=== PATIENT | female | born 1945 | race Caucasian/White ===

== ENCOUNTER 2018-01-28 10:04 | Emergency (ER) | payer OTHER, SELFPAY ==
[2018-01-28 10:17] VITALS: BP 144/75; PULSE 89; RESP 16; TEMP 36.5; O2SAT 96
--- NOTE | 2018-01-28 10:22 | ED.GENADUL_ITS ---
Discharge Plan Discharge Details Chief Complaint: Orthopedic Primary Care Provider: Rosaura Rueda ED Provider: Bhavya Deutsch Home Meds and New Rx's Prescriptions: No Action travoprost [Travatan Z] 2.5 ML drops 1 drp OU QHS RF: 0 mirtazapine [Remeron] 30 MG tablet 30 mg PO HS RF: 0 multivitamin with iron 1 EACH tablet 1 ea PO DAILY RF: 0 duloxetine [Cymbalta] 60 MG capsule,delayed release(DR/EC) 1 cap PO DAILY RF: 0 quetiapine 100 MG tablet 50 - 100 mg PO as directed RF: 0 cholecalciferol (vitamin D3) 3,000 UNIT tablet 3,000 unit PO DAILY Qty: 100 RF: 4 calcium carbonate [Tums] 200 MG tablet,chewable 400 mg PO am prn RF: 0 famotidine-Ca carb-mag hydrox [Pepcid Complete] 1 EACH tablet,chewable 1 ea PO daily prn RF: 0 amoxicillin 500 MG capsule 2,000 mg PO DIRECTED Qty: 4 RF: 6 triamcinolone acetonide 15 GM cream 1 applic Topical BID PRN Qty: 15 RF: 6 esomeprazole magnesium [Nexium] 40 MG capsule,delayed release(DR/EC) 40 mg PO DAILY Qty: 90 RF: 4 ascorbic acid (vitamin C) [Vitamin C] 1,000 MG tablet extended release 1,000 mg PO DAILY RF: 0 duloxetine 30 MG capsule,delayed release(DR/EC) 30 mg PO DAILY RF: 0 magnesium oxide 400 MG capsule 400 mg PO DAILY RF: 0 calcium citrate-vitamin D3 [Citracal + D Maximum] 1 EACH tablet 1 ea PO DAILY RF: 0 melatonin 10 MG tablet 10 mg PO HS RF: 0 syringe with needle [BD Eclipse Luer-Sterling] 1 EACH syringe 1 syringe IM TWICE MONTHLY Qty: 6 RF: 4 cyanocobalamin (vitamin B-12) 1,000 MCG/1 ML solution 1,000 mcg IM 2x/mo Qty: 6 RF: 11 gabapentin 600 MG tablet 600 mg PO HS Qty: 90 RF: 4 ketoconazole 120 ML shampoo 1 applic Topical 2-3 x per wk RF: 0 nutritional supplements [Ensure Pudding] 113 GM pudding 113 gm PO BID Qty: 8 RF: 6 clonazepam 1 mg tablet 1 mg PO BID Qty: 180 RF: 0 topiramate 50 mg tablet See Label Instructions PO BID Qty: 90 RF: 2 HPI General Date/Time Provider Initiated Documentation: 01/28/18 10:21 . Related Data Home Medications Medication Instructions Recorded Confirmed duloxetine [Cymbalta] 1 cap PO DAILY tab-cap 09/14/12 mirtazapine [Remeron] 30 mg PO HS tab-cap 09/14/12 multivitamin with iron 1 ea PO DAILY 09/14/12 travoprost [Travatan Z] 1 drp OU QHS drp 09/14/12 quetiapine 50 - 100 mg PO as directed 07/01/13 cholecalciferol (vitamin D3) 3,000 unit PO DAILY #100 tab-cap 04/09/14 amoxicillin 2,000 mg PO DIRECTED #4 tab-cap 10/06/14 calcium carbonate [Tums] 400 mg PO am prn tab.chew 10/06/14 famotidine-Ca carb-mag hydrox 1 ea PO daily prn tab.chew 10/06/14 [Pepcid Complete Tablet Chew] triamcinolone acetonide 1 applic TOPICAL BID PRN #15 gm 02/12/15 esomeprazole magnesium [Nexium] 40 mg PO DAILY #90 tab-cap 05/23/16 ascorbic acid (vitamin C) [Vitamin 1,000 mg PO DAILY 08/02/16 C] duloxetine 30 mg PO DAILY 01/22/17 magnesium oxide 400 mg PO DAILY 01/22/17 calcium citrate-vitamin D3 1 ea PO DAILY 04/23/17 [Citracal + D Maximum Caplet] cyanocobalamin (vitamin B-12) 1,000 mcg IM 2x/mo #6 vial 08/08/17 melatonin 10 mg PO HS 08/08/17 syringe with needle [Eclipse #6 syringe 08/08/17 Luer-Sterling Syringe] gabapentin 600 mg PO HS #90 tab-cap 09/10/17 ketoconazole 1 applic TOPICAL 2-3 x per wk 10/17/17 script nutritional supplements [Ensure] 113 gm PO BID #8 bottle 10/17/17 clonazepam 1 mg tablet 1 mg PO BID #180 tab-cap 12/24/17 topiramate 50 mg tablet See Label Instructions PO BID #90 12/24/17 tab Previous Rx's Medication Instructions Recorded cyanocobalamin (vitamin B-12) 1,000 mcg IM 2x/mo #6 vial 08/08/17 syringe with needle [Eclipse #6 syringe 08/08/17 Luer-Sterling Syringe] gabapentin 600 mg PO HS #90 tab-cap 09/10/17 nutritional supplements [Ensure] 113 gm PO BID #8 bottle 10/17/17 clonazepam 1 mg tablet 1 mg PO BID #180 tab-cap 12/24/17 topiramate 50 mg tablet See Label Instructions PO BID #90 12/24/17 tab Allergies Allergy/AdvReac Type Severity Reaction Status Date / Time Iodinated Contrast- Oral and Allergy Severe ANAPHYLAXIS Unverified 01/28/18 10: 20 IV Dye escitalopram oxalate Allergy Intermediate Parkinsonian Unverified 01/28/18 10:20 [From Lexapro] symtoms wool Allergy Intermediate Unverified 01/28/18 10:20 amoxicillin trihydrate Allergy Mild SKIN RASH Unverified 01/28/18 10:20 [From Augmentin] cimetidine Allergy Unknown Unverified 01/28/18 10:20 Sulfa (Sulfonamide Allergy Unknown UNSURE Unverified 01/28/18 10:20 Antibiotics) cyclobenzaprine HCl AdvReac Severe PVC'S Unverified 01/28/18 10:20 [From Flexeril] carbidopa [From Sinemet] AdvReac Mild LOOSES Unverified 01/28/18 10:20 CONTROL levodopa [From Sinemet] AdvReac Mild LOOSES Unverified 01/28/18 10:20 CONTROL lisinopril AdvReac Mild COUGH Unverified 01/28/18 10:20 fentanyl AdvReac Unknown Unverified 01/28/18 10:20 [employer] laundry Allergy Intermediate Itching Uncoded 01/28/18 10:20 detergent Sheer strip band-aid Allergy Intermediate Rash Uncoded 01/28/18 10:20 General Stated Complaint: Orthopedic SARAH: 4 PFSH Family History Mother Myasthenia gravis Macular degeneration Father Personal history of malignant neoplasm Cerebrovascular accident Sister Personal history of malignant neoplasm Brother Personal history of malignant neoplasm Grandfather Personal history of malignant neoplasm Grandfather Essential hypertension Personal history of malignant neoplasm Hyperlipidemia Grandmother Personal history of malignant neoplasm Grandmother Essential hypertension Heart disease Cerebrovascular accident Social History Smoking/Tobacco Use Status: Never Surgical History Appendectomy (~2004) Fracture, Closed Treatment 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
--- NOTE | 2018-01-28 10:57 | ED.GENADUL_ITS ---
Discharge Plan Disposition Patient Disposition: HOME Condition: Fair Discharge Details Chief Complaint: Orthopedic Clinical Impression: Closed femur fracture Primary Care Provider: Rosaura Rueda ED Provider: Bhavya Deutsch Home Meds and New Rx's Prescriptions: Continue travoprost [Travatan Z] 2.5 ML drops 1 drp OU QHS RF: 0 mirtazapine [Remeron] 30 MG tablet 30 mg PO HS RF: 0 multivitamin with iron 1 EACH tablet 1 ea PO DAILY RF: 0 duloxetine [Cymbalta] 60 MG capsule,delayed release(DR/EC) 1 cap PO DAILY RF: 0 quetiapine 100 MG tablet 50 - 100 mg PO as directed RF: 0 cholecalciferol (vitamin D3) 3,000 UNIT tablet 3,000 unit PO DAILY Qty: 100 RF: 4 calcium carbonate [Tums] 200 MG tablet,chewable 400 mg PO am prn RF: 0 famotidine-Ca carb-mag hydrox [Pepcid Complete] 1 EACH tablet,chewable 1 ea PO daily prn RF: 0 amoxicillin 500 MG capsule 2,000 mg PO DIRECTED Qty: 4 RF: 6 triamcinolone acetonide 15 GM cream 1 applic Topical BID PRN Qty: 15 RF: 6 esomeprazole magnesium [Nexium] 40 MG capsule,delayed release(DR/EC) 40 mg PO DAILY Qty: 90 RF: 4 ascorbic acid (vitamin C) [Vitamin C] 1,000 MG tablet extended release 1,000 mg PO DAILY RF: 0 duloxetine 30 MG capsule,delayed release(DR/EC) 30 mg PO DAILY RF: 0 magnesium oxide 400 MG capsule 400 mg PO DAILY RF: 0 calcium citrate-vitamin D3 [Citracal + D Maximum] 1 EACH tablet 1 ea PO DAILY RF: 0 melatonin 10 MG tablet 10 mg PO HS RF: 0 syringe with needle [BD Eclipse Luer-Sterling] 1 EACH syringe 1 syringe IM TWICE MONTHLY Qty: 6 RF: 4 cyanocobalamin (vitamin B-12) 1,000 MCG/1 ML solution 1,000 mcg IM 2x/mo Qty: 6 RF: 11 gabapentin 600 MG tablet 600 mg PO HS Qty: 90 RF: 4 ketoconazole 120 ML shampoo 1 applic Topical 2-3 x per wk RF: 0 nutritional supplements [Ensure Pudding] 113 GM pudding 113 gm PO BID Qty: 8 RF: 6 clonazepam 1 mg tablet 1 mg PO BID Qty: 180 RF: 0 topiramate 50 mg tablet See Label Instructions PO BID Qty: 90 RF: 2 Discharge Instructions Instructions: Leg Fracture (ED) Additional Instructions: Please continue with knee immobilizer until evaluated by orthopedics. He may call orthopedics today to schedule follow-up appointment. Please continue to walk with your walker until evaluated by orthopedics. Encouraged rest, ice, elevation. Tylenol and/or ibuprofen as needed for discomfort. If you develop increased pain, fever/chills or other new/worsening symptoms please seek care urgently once again. Referrals: Sam Duke MD [ [facility]FF [facility]YSICIAN] - ([phone]) Discharge Data Discharge Date/Time-TO BE ENTERED AT DEPARTURE: 01/28/18 12:26 Medical Decision Making Patient is 72-year-old female, accompanied by a friend, with chief complaint of right knee pain that began last night after tripping over a piece of firewood. RErpots that at the time of the incident, she twisted her knee and subsequently fell, striking the knee. Patient is a small area of ecchymosis along the lateral aspect of the knee inferior to the joint line. Reports the pain is maximal in the medial joint line. She reports that she has not been able to bear weight on the extremity since the fall. Came and assisted by her friend today. Patient is status post TKA, reports that she had this replaced in [place] in 2000. States she did not have any postoperative complications and had been having no discomfort in the knee until last night. On exam, patient has very limited range of motion. Lacking approximately 10 degrees from full extension, as I am only able to flex to approximately 40 degrees secondary to discomfort. Small effusion is palpable. Area of ecchymosis, approximately 3 cm in diameter is noted along the lateral inferior aspect of the knee. Remaining exam was postponed as the patient is having so much discomfort is difficult to assess. Plan obtain imaging. Patient did take small amount of ibuprofen this morning, we will augment this with more ibuprofen and a gram of Tylenol. Discussed this plan with the patient who is in agreement. X-ray significant for a nondisplaced medial condyle fracture. Discussed the findings with the patient. She will be fitted with a knee immobilizer. She is use a walker in the past, reports that she does have on the car. Seems well versed in how to use this. Encourage rest, ice, elevation. Patient is requesting referral to Dr. Duke for follow-up. Advised him new/worsening symptoms once he care urgently once again. We did discuss pain management options and at this point she would prefer to follow nonnarcotic route would prefer to continue with Tylenol and ibuprofen. She will contact orthopedics today to schedule follow-up. Patient was placed in a fracture list. All of her questions and concerns were addressed and she is in agreement this plan per HPI General Mode of arrival: wheelchair . Date/Time Provider Initiated Documentation: 01/28/18 10:21 . Limitations to Documentation: no limitations . Information obtained by: patient . History of Present Illness 72 year old F presents to the emergency department with the chief complaint of right knee pain, described as moderate, with intensity rated at 8. Quality is described as aching, and is localized to the right and lower extremity. Patient reports no radiation. Patient started experiencing this day(s) (1) and it has been constant. Immobilization improves symptom(s), Movement worsens symptoms . Patient notes no other symptoms.; denies chest pain, fever/chills and rash. Patient did receive the following treatments prior to arrival, NSAID (400mg Ibuprofen 0800) Related Data Home Medications Medication Instructions Recorded Confirmed duloxetine [Cymbalta] 1 cap PO DAILY tab-cap 09/14/12 01/28/18 mirtazapine [Remeron] 30 mg PO HS tab-cap 09/14/12 01/28/18 multivitamin with iron 1 ea PO DAILY 09/14/12 01/28/18 travoprost [Travatan Z] 1 drp OU QHS drp 09/14/12 01/28/18 quetiapine 50 - 100 mg PO as directed 07/01/13 01/28/18 cholecalciferol (vitamin D3) 3,000 unit PO DAILY #100 tab-cap 04/09/14 01/28/18 amoxicillin 2,000 mg PO DIRECTED #4 tab-cap 10/06/14 01/28/18 calcium carbonate [Tums] 400 mg PO am prn tab.chew 10/06/14 01/28/18 famotidine-Ca carb-mag hydrox 1 ea PO daily prn tab.chew 10/06/14 01/28/18 [Pepcid Complete] triamcinolone acetonide 1 applic TOPICAL BID PRN #15 gm 02/12/15 01/28/18 esomeprazole magnesium [Nexium] 40 mg PO DAILY #90 tab-cap 05/23/16 01/28/18 ascorbic acid (vitamin C) [Vitamin 1,000 mg PO DAILY 08/02/16 01/28/18 C] duloxetine 30 mg PO DAILY 01/22/17 01/28/18 magnesium oxide 400 mg PO DAILY 01/22/17 01/28/18 calcium citrate-vitamin D3 1 ea PO DAILY 04/23/17 [Citracal + D Maximum] cyanocobalamin (vitamin B-12) 1,000 mcg IM 2x/mo #6 vial 08/08/17 01/28/18 melatonin 10 mg PO HS 08/08/17 01/28/18 syringe with needle [BD Eclipse #6 syringe 08/08/17 Luer-Sterling] gabapentin 600 mg PO HS #90 tab-cap 09/10/17 01/28/18 ketoconazole 1 applic TOPICAL 2-3 x per wk 10/17/17 01/28/18 script nutritional supplements [Ensure 113 gm PO BID #8 bottle 10/17/17 01/28/18 Pudding] clonazepam 1 mg tablet 1 mg PO BID #180 tab-cap 12/24/17 01/28/18 topiramate 50 mg tablet See Label Instructions PO BID #90 12/24/17 01/28/18 tab Previous Rx's Medication Instructions Recorded cyanocobalamin (vitamin B-12) 1,000 mcg IM 2x/mo #6 vial 08/08/17 syringe with needle [BD Eclipse #6 syringe 08/08/17 Luer-Sterling] gabapentin 600 mg PO HS #90 tab-cap 09/10/17 nutritional supplements [Ensure 113 gm PO BID #8 bottle 10/17/17 Pudding] clonazepam 1 mg tablet 1 mg PO BID #180 tab-cap 12/24/17 topiramate 50 mg tablet See Label Instructions PO BID #90 12/24/17 tab Allergies Allergy/AdvReac Type Severity Reaction Status Date / Time Iodinated Contrast- Oral and Allergy Severe ANAPHYLAXIS Unverified 01/28/18 10: 20 IV Dye escitalopram oxalate Allergy Intermediate Parkinsonian Unverified 01/28/18 10:20 [From Lexapro] symtoms wool Allergy Intermediate Unverified 01/28/18 10:20 amoxicillin trihydrate Allergy Mild SKIN RASH Unverified 01/28/18 10:20 [From Augmentin] cimetidine Allergy Unknown Unverified 01/28/18 10:20 Sulfa (Sulfonamide Allergy Unknown UNSURE Unverified 01/28/18 10:20 Antibiotics) cyclobenzaprine HCl AdvReac Severe PVC'S Unverified 01/28/18 10:20 [From Flexeril] carbidopa [From Sinemet] AdvReac Mild LOOSES Unverified 01/28/18 10:20 CONTROL levodopa [From Sinemet] AdvReac Mild LOOSES Unverified 01/28/18 10:20 CONTROL lisinopril AdvReac Mild COUGH Unverified 01/28/18 10:20 fentanyl AdvReac Unknown Unverified 01/28/18 10:20 [employer] laundry Allergy Intermediate Itching Uncoded 01/28/18 10:20 detergent Sheer strip band-aid Allergy Intermediate Rash Uncoded 01/28/18 10:20 General Stated Complaint: Orthopedic SARAH: 4 Review of Systems Constitutional Reports as per HPI, Denies chills and Denies fever(s) Cardiovascular Denies chest pain and Denies dyspnea Respiratory Denies cough and Denies dyspnea Musculoskeletal Reports as per HPI, Denies numbness and Denies tingling Integumentary/Breasts Reports as per HPI (ecchymosis lateral right knee) Neurologic Denies numbness, Denies tingling and Denies paresthesias PFSH Family History Mother Myasthenia gravis Macular degeneration Father Personal history of malignant neoplasm Cerebrovascular accident Sister Personal history of malignant neoplasm Brother Personal history of malignant neoplasm Grandfather Personal history of malignant neoplasm Grandfather Essential hypertension Personal history of malignant neoplasm Hyperlipidemia Grandmother Personal history of malignant neoplasm Grandmother Essential hypertension Heart disease Cerebrovascular accident Social History Smoking/Tobacco Use Status: Never Surgical History Appendectomy (~2004) Fracture, Closed Treatment 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) foot surgery Exam Const General: cooperative, healthy appearing, comfortable, no acute distress, well developed and well groomed Nutritional Appearance: average body habitus and well nourished Orientation: alert and awake Resp Effort & Inspection: normal respiratory effort, able to speak in complete sentences and no respiratory distress Cardio Rate: regular rate Rhythm: regular rhythm Skin General skin exam: ecchymosis (3cm area of circular ecchymosis inferior to the joint line lateral right knee), no erythema, no fluctuance, no induration and scars (patient has 3 scars over the right knee from previous surgical interventions) Trauma: no abrasions and no lacerations Wounds: wound noted Neuro General: alert and awake Cognition: normal cognition Speech: speech normal Gait: gait abnormal (patient came in via wheelchair) Extrem Right lower extremity: normal capillary refill; ROM limited (Patient is lying in present 10 degrees from full extension, is able to flex to 40 degrees secondary to pain.), no edema and joint enlargement noted (Patient is a small joint effusion on the right) Psych Appearance: grossly normal and well kempt Mental Status: mental status grossly normal Speech and Movement: speech and movement normal Mood: congruent mood Course Vital Signs Temperature 36.5 C 01/28/18 10:17 Pulse 89 01/28/18 10:17 Respiratory Rate 16 01/28/18 10:17 Blood Pressure 144/75 H 01/28/18 10:17 Pulse Oximetry 96 01/28/18 10:17 Temperature 36.5 C 01/28/18 10:17 Temperature Source Skin 01/28/18 10:17 Pulse 89 01/28/18 10:17 Respiratory Rate 16 01/28/18 10:17 Respiratory Effort Non-Labored 01/28/18 10:17 Blood Pressure 144/75 H 01/28/18 10:17 Pulse Oximetry 96 01/28/18 10:17 Pain Level 8 01/28/18 10:17
[2018-01-28] MEDS: Ibuprofen 400 MG TAB PO (11:00)
[2018-01-28] MEDS: Acetaminophen 500 MG TAB 1000 MG PO (11:00)
--- NOTE | 2018-01-28 11:17 | DI.RAD_ITS ---
SYMPTOM/DIAGNOSIS: FELL, PAIN RIGHT KNEE: Multiple views. Comparison is made with 12/16/07. There are again seen post surgical changes of a right total knee replacement. There is a nondisplaced vertical fracture within the medial right femoral epicondyle. It extends inferiorly to the border of the femoral prosthesis. There is a hemarthrosis. No other fracture or dislocation is seen. There is soft tissue swelling about the knee. IMPRESSION: Nondisplaced periprosthetic fracture involving the medial femoral condyle. The findings were discussed with Bhavya Deutsch of the ER on the date of the examination.
== END 2018-01-28 12:26 | disposition home or self-care (01) ==
PROVIDERS: Emergency Provider Physician Assistant; PCP Internal Medicine
DX: S72.434A Nondisplaced fracture of medial condyle of right femur, initial encounter for closed fracture (principal); W01.10XA Fall on same level from slipping, tripping and stumbling with subsequent striking against unspecified object, initial encounter; X50.9XXA Other and unspecified overexertion or strenuous movements or postures, initial encounter; Z96.651 Presence of right artificial knee joint
CPT/HCPCS: 29505; 99284; 73564; 99283; L1830

== ENCOUNTER 2018-02-05 11:43 | Outpatient (CLI) | payer OTHER, SELFPAY ==
--- NOTE | 2018-02-05 11:50 | DI.RAD_ITS ---
SYMPTOM/DIAGNOSIS: F/U FX RIGHT KNEE: Two views. Comparison is made with 01/28/18. There has been no change in alignment of the nondisplaced fracture involving the right medial femoral condyle. The patient has a right total knee replacement. The orthopedic hardware appears in stable position. The soft tissues are unremarkable. Note is made of a small joint effusion. IMPRESSION: Stable right distal femoral fracture.
== END 2018-02-05 12:03 ==
PROVIDERS: PCP Internal Medicine; Visit Provider Orthopaedic Surgery
DX: S72.434A Nondisplaced fracture of medial condyle of right femur, initial encounter for closed fracture (principal); W01.0XXA Fall on same level from slipping, tripping and stumbling without subsequent striking against object, initial encounter; Z96.651 Presence of right artificial knee joint
CPT/HCPCS: 99214; L1830; 73560

== ENCOUNTER 2018-03-06 10:14 | Outpatient (CLI) | payer OTHER, SELFPAY ==
--- NOTE | 2018-03-06 10:02 | DI.RAD_ITS ---
SYMPTOM/DIAGNOSIS: F/U OF NONDISPLACED FRACTURE OF FEMORAL CONDYLE RIGHT KNEE: Comparison is made with 05 Feb 2018. There has been no change in the alignment of the total knee prosthesis. No abnormal bony lucencies are seen.
== END 2018-03-06 10:34 ==
PROVIDERS: PCP Internal Medicine; Referring Provider Internal Medicine; Visit Provider Student in an Organized Health Care Education/Training Program
DX: S72.414D Nondisplaced unspecified condyle fracture of lower end of right femur, subsequent encounter for closed fracture with routine healing; Z96.651 Presence of right artificial knee joint; W01.0XXD Fall on same level from slipping, tripping and stumbling without subsequent striking against object, subsequent encounter
CPT/HCPCS: 99212; 99213; 73560; L1820

== ENCOUNTER 2018-04-24 01:09 | Outpatient (CLI) | payer OTHER, SELFPAY ==
--- NOTE | 2018-04-24 08:46 | DI.MRI_ITS ---
SYMPTOM/DIAGNOSIS: SCIATICA, M54.30, LOW BACK PAIN, LEG LEG SYMPTOMS LUMBAR SPINE MRI: The study was conducted according to the usual protocol. The patient has a history of surgery many years ago, question discectomy. A mild lumbar scoliosis is demonstrated, convexity to the left. The conus terminates at the level of the L 1 vertebral body. Degenerative disc disease and facet arthrosis is present throughout the lumbar spine. At T 12-L 1, posterior central disc protrusion and extrusion is unchanged when compared with the prior examination. There is no evidence of cord impingement or spinal stenosis. At L 1-2, posterior broad based disc bulge is identified. There is no nerve root impingement or spinal stenosis. At L 2-3, disc space height loss is identified. There is a Modic type 1 endplate signal change and a posterior broad based disc protrusion and bilateral facet joint hypertrophy. No nerve root impingement is identified. There is no significant spinal stenosis. At L 3-4, there is loss of disc height and a Modic type 2 endplate signal change and posterior broad based disc protrusion and bilateral facet joint hypertrophy also identified. There is no nerve root impingement or significant spinal stenosis at this level. At L 4-5, loss of disc space height is noted. There is a Modic type 1 signal change and asymmetric left sided posterior broad based disc protrusion evident. There is protruding disc material which abuts and posteriorly displaces the left L 5 nerve root. Note is made of bilateral facet joint hypertrophy. There is mild spinal stenosis at this level and left lateral recess stenosis. At L 5-S 1, posterior broad based disc bulge is noted. Bilateral facet joint hypertrophy is noted. There is no evidence of nerve root impingement or spinal stenosis. The soft tissues are unremarkable. IMPRESSION: There is evidence of degenerative disc disease and facet joint DJD throughout the lumbar spine. Asymmetric left posterior broad based disc protrusion is identified at L 4-5 and abuts and possibly displaces the left L 5 nerve root, these findings to be correlated with the patient's clinical status.
--- NOTE | 2018-04-24 18:08 | DI.VRAD_ITS ---
EXAM: MR Lumbar Spine Without Contrast. EXAM DATE/TIME: 04/24/2018 9:36 AM CLINICAL HISTORY: 72 years old, female; Signs and symptoms; Other: Sciatica TECHNIQUE: Multiplanar magnetic resonance images of the lumbar spine without intravenous contrast. COMPARISON: MR lumbar spine wo 09/16/2016 1:45 PM FINDINGS: Vertebrae: Mild scoliosis of the lumbar spine, apex to the left. Spinal cord: The conus terminates at the level of the L1 vertebral body. Thoracic discs/Spinal canal/Neural foramina: Degenerative disc disease and facet arthrosis is present throughout the lumbar spine. DISCS/SPINAL CANAL/NEURAL FORAMINA: T12-L1: Posterior central disc protrusion/extrusion, unchanged. No cord impingement. No spinal stenosis. L1-L2: Posterior broad-based disc bulge. No nerve root impingement or spinal stenosis. L2-L3: Disc space height loss, Modic type I endplate signal change and posterior broad based disc protrusion here he bilateral facet hypertrophy. No nerve root impingement. No significant spinal stenosis. L3-L4: Disc space height loss. Modic type II endplate signal change. Posterior broad-based disc protrusion and bilateral facet hypertrophy. No nerve root impingement or significant spinal stenosis. L4-L5: Disc space height loss. Mild Modic type I signal change. Asymmetric left-sided posterior broad-based disc protrusion. Protruding disc material abuts and posterior displaces the left L5 nerve root. Bilateral facet hypertrophy. Mild spinal stenosis. Left lateral recess stenosis. L5-S1: Posterior broad-based disc bulge. Bilateral facet hypertrophy. No nerve root impingement or spinal stenosis. Soft tissues: Unremarkable. IMPRESSION: 1. Degenerative disc disease and facet arthrosis throughout the lumbar spine. 2. Asymmetric left-sided posterior broad-based disc protrusion at L4-L5 abuts and possibly displaces the left L5 nerve root. Correlate with left L5 radiculopathy. Dictated and Authenticated by: Alexandro Cheney MD. Ordering:BLANCA Kaplan MD
== END 2018-04-24 01:29 ==
PROVIDERS: PCP Internal Medicine; Visit Provider Internal Medicine
DX: M54.5 Low back pain (principal); M54.30 Sciatica, unspecified side; M51.17 Intervertebral disc disorders with radiculopathy, lumbosacral region
CPT/HCPCS: 72148

== ENCOUNTER 2018-05-01 13:46 | Outpatient (CLI) | payer OTHER, SELFPAY ==
--- NOTE | 2018-05-01 12:41 | DI.RAD_ITS ---
SYMPTOMS/DIAGNOSIS: LUMBAR RADICULOPATHY PAIN CLINIC LUMBAR SPINE: Fluoroscopy Time: 12.8 sec C-arm fluoroscopy was utilized by Dr. Kaye. Please see Dr. Kaye's procedure note. Hard copy shows needle placement on the left adjacent to what appears to be the L4-5 neural foramen.
[2018-05-01 13:58] VITALS: BP 140/75; PULSE 95; RESP 22; TEMP 37.4; O2SAT 98
--- NOTE | 2018-05-01 15:01 | PDOC.PAIN ---
Pain Clinic Procedure Note Current Active Problems Problem Status Onset Lumbar radicular syndrome Acute LUMBAR / SACRAL TRANSFORAMINAL INJECTION BECKI CRUZ has been referred [facility] for a transforaminal nerve root block and steroid injection. COMMENTS: Patient has had 10 weeks back pain. She has disc herniation at L4-5 with foraminal and lateral recess stenosis. Pain goes to the top of her foot and ankle. She has a reaction to contrast in the past Patient was interviewed and the medical record reviewed. There were no medical, pharmacologic, radiographic or other structural contraindications to attempting fluoroscopically guided transforaminal nerve root block and epidural steroid injection. Risks and expected side effects as well as potential benefit of the procedure were reviewed and voiced concerns addressed. The printed consent form was signed and witnessed. Standard time-out procedure was performed. Patient was placed in the prone position on the fluoroscopy table and automated blood pressure cuff and pulse oximeter applied. Fluoroscopy was utilized to identify the { left L4-5} neural foramen between L4 and 5 . A skin allie was made for the needle insertion site. A Chlorhexadine prep was carried out, and sterile drapes were applied. Local anesthesia was achieved in the skin and subcutaneous tissues. A 22 gauge curved tip spinal needle was then inserted, advanced with fluoroscopic guidance into the neural foramen, confirmed on the lateral view. After negative aspiration, 15 mg dexamethasone contrast was not used secondary to history of anaphylactic reaction. Was injected, followed by 0.5 ml of 0.5% bupivacaine e flush for the nerve root block, as well. There was no unusual discomfort expressed.The needle was withdrawn. The patient tolerated the procedure well. A Band-Aid was applied. Vital signs were stable throughout the procedure and were as recorded in nursing records. If given, dosages of intravenous drugs for anxiolysis and analgesia were documented in nursing records. Follow up plans and appointments were discussed. Post procedure instruction was given as documented in nursing records and patient was discharged in the care of an identified four horse hitch driver. COMMENTS: Patient will follow-up as needed. Consider repeating with Depo-Medrol contrast but first pretreating. She is no better would also consider surgical evaluation. Patient has a preference for a neurosurgery. Pain went from 10/-0/. CC: Rosaura Rueda MD
[2018-05-01 15:09] VITALS: BP 165/89; PULSE 99; RESP 20; O2SAT 98
[2018-05-01] MEDS: Bupivacaine 0.5% Pres-Free 30 ML VIAL IJ (15:18)
[2018-05-01] MEDS: Dexamethasone Sod. Phos./Pres-Free 10 MG/ML VIAL IJ (15:19)
== END 2018-05-01 14:06 ==
PROVIDERS: PCP Internal Medicine; Visit Provider Anesthesiology Pain Medicine
DX: M54.16 Radiculopathy, lumbar region (principal)
CPT/HCPCS: 64483; 72100

== ENCOUNTER 2018-05-27 11:29 | Outpatient (CLI) | payer OTHER, SELFPAY ==
[2018-05-27 13:28] LABS: Abs Immature Grans 0.01 k/cumm (0.0-0.09); Absolute Basophil Count 0.02 k/cumm (0.0-0.2); Absolute Eosinophil Count 0.09 k/cumm (0.0-0.7); Absolute Lymphocyte Count 0.88 k/cumm (1.2-3.4); Absolute Monocyte Count 0.44 k/cumm (0.11-0.7); Absolute Neutrophil Count 3.94 k/cumm (1.2-6.7); Basophils % 0.4; Eosinophils % 1.7; HCT 42.9 % (36.0-46.0); HGB 14.2 g/dL (12.0-15.5); Immature Grans % 0.2; Lymphocytes % 16.4; Mean Corp. HGB Concentration 33.1 g/dL (32.0-36.0); Mean Corpuscular Hemoglobin 33.6 pg (27.0-33.0); Mean Corpuscular Volume 101.4 fL (80-95); Mean Platelet Volume 9.2 fL (8.0-11.0); Monocytes % 8.2; Neutrophils % 73.1; Platelet Count 320 x1000/uL (130-400); RBC 4.23 m/cumm (4.00-5.20); RBC Distribution Width 14.3 % (11.7-14.6); White Blood Cell Count 5.38 k/cumm (4.4-10.8)
[2018-05-27 13:40] LABS: ALT 27 U/L (12-78); AST 28 U/L (15-37); Albumin 3.8 g/dL (3.4-5.0); Alkaline Phosphatase 96 U/L (46-116); Anion Gap 7.4 mmol/L (3-11); BUN 8 mg/dL (7-18); Bilirubin, Total 0.5 mg/dL (0.2-1.0); CO2 28.6 mmol/L (21.0-32.0); CREATININE 0.67 mg/dL (0.55-1.02); Calcium 9.4 mg/dL (8.5-10.1); Chloride 98 mmol/L (98-107); Glucose 85 mg/dL (70-100); Sodium 134 mmol/L (136-145); Total Protein 7.2 g/dL (6.4-8.2)
== END 2018-05-27 11:49 ==
PROVIDERS: PCP Internal Medicine; Visit Provider Internal Medicine
DX: Z01.818 Encounter for other preprocedural examination (principal); R69 Illness, unspecified
CPT/HCPCS: 36415; 80053; 85025

== ENCOUNTER 2018-07-19 12:15 | Outpatient (REF) | payer OTHER, SELFPAY ==
[2018-07-19 14:05] LABS: Bilirubin Negative (Negative); Blood Negative (Negative); Clarity Cloudy; Glucose Negative (Negative); Ketones Negative (Negative); Leukocyte Esterase Large (Negative); Nitrite Negative (Negative); Specific Gravity 1.015 (1.005-1.025); Urobilinogen 0.2 EU/dL (Up TO 0.2); pH 8.5 (5-8)
[2018-07-19 14:16] LABS: Bacteria Moderate HPF (Negative); C & S Indicated? Yes; Casts Negative LPF (Negative); Crystals Moderate Amorphous HPF (Negative); Epithelial Cells Few HPF (Negative); Mucus Trace (Negative); RBC Negative (0-2)
== END 2018-07-19 12:35 ==
LOC: LBN 12:15
PROVIDERS: PCP Internal Medicine; Visit Provider Internal Medicine
DX: R30.0 Dysuria (principal)
CPT/HCPCS: 87077; 81003; 81015; 87086; 87186

== ENCOUNTER 2018-10-16 00:33 | Outpatient (CLI) | payer OTHER, SELFPAY ==
--- NOTE | 2018-10-16 11:18 | DI.RAD_ITS ---
SYMPTOMS/DIAGNOSIS: LUMP ON LT FOOT, LT FOOT PAIN, M79.675 LEFT FOOT: When compared with the previous examination of 10/24/17, healing of a nondisplaced fracture of the proximal phalanx of the fourth toe is demonstrated. Again noted is a hallux valgus deformity and degenerative changes involving the first metatarsal phalangeal joint.
== END 2018-10-16 00:53 ==
PROVIDERS: PCP Internal Medicine; Visit Provider Internal Medicine
DX: M79.672 Pain in left foot (principal); R22.42 Localized swelling, mass and lump, left lower limb; M20.12 Hallux valgus (acquired), left foot; M19.072 Primary osteoarthritis, left ankle and foot; Z87.81 Personal history of (healed) traumatic fracture
CPT/HCPCS: 73630

== ENCOUNTER 2018-10-21 00:35 | Outpatient (CLI) | payer OTHER, SELFPAY ==
--- NOTE | 2018-10-21 12:43 | MERGE_ITS ---
*[facility]* *[facility]* [address] [place] [address] Date of study: 10/21/2018 Transthoracic Echocardiography M-mode, complete 2D, complete spectral Doppler, and color Doppler *STUDY CONCLUSIONS* Summary: 1. Left ventricle: The cavity size was normal. Systolic function was normal. The estimated ejection fraction was 60-65%. Diastolic parameters were normal for age. There was no evidence of elevated ventricular filling pressure by Doppler parameters. 2. Mitral valve: There was mild regurgitation. 3. Right ventricle: The cavity size was normal. Wall thickness was normal. Systolic function was normal. 4. Atrial septum: No defect or patent foramen ovale was identified. 5. Pulmonary arteries: Pulmonary systolic pressure was in the range of 15mm Hg to 25mm Hg. 6. Inferior vena cava: The vessel was normal in size. The respirophasic diameter changes were in the normal range (greater than or equal to 50%), consistent with normal central venous pressure. *PATIENT PRESENTATION* Height: 165.1cm (65in ) S/D Pressure: 135 / 78 Weight: 59.9kg (131.7lb ) BSA: 1.66m^2 Test start time: 12:43 PM. Test stop time: 01:10 PM. PERFORMING Unknown PERFORMING [facility] CONSULTING Rosaura Rueda Susan M REFERRING Rosaura Rueda SUPER[employer] Valerie Pitts *PROCEDURE DATA* Procedure information: This study was interpreted by [facility]. Pertinent images and digital data are archived for permanent storage and are available for subsequent review. No prior study was available for comparison. Study status: Routine. Transthoracic echocardiography. M-mode, complete 2D, complete spectral Doppler, and color Doppler. A Transthoracic Echocardiogram was performed. Scanning was performed from the parasternal, apical, subcostal, and suprasternal notch acoustic windows. Images were obtained using an [employer] [id number] cardiac ultrasound machine. Image quality was adequate. Study completion: The patient tolerated the procedure well. History: PMH: Cardiomegaly. *CARDIAC ANATOMY* Left ventricle: The cavity size was normal. Systolic function was normal. The estimated ejection fraction was 60-65%. The tissue Doppler parameters were abnormal. Diastolic parameters were normal for age. There was no evidence of elevated ventricular filling pressure by Doppler parameters. Aortic valve: Trileaflet. Doppler: There was no stenosis. There was no regurgitation. VTI ratio of LVOT to aortic valve: 0.97. Valve area (VTI): 3cm^2. Indexed valve area (VTI): 1.8cm^2/m^2. Peak velocity ratio of LVOT to aortic valve: 0.85. Valve area (Vmax): 2.6cm^2. Indexed valve area (Vmax): 1.6cm^2/m^2. Mean velocity ratio of LVOT to aortic valve: 0.75. Valve area (Vmean): 2.3cm^2. Indexed valve area (Vmean): 1.4cm^2/m^2. Mean gradient (S): 4.4mm Hg. Peak gradient (S): 8.7mm Hg. Aorta: Aortic root: The aortic root was normal in size. Ascending aorta: The ascending aorta was at upper normal limits. Mitral valve: Doppler: There was no evidence for stenosis. There was mild regurgitation. Valve area by pressure half-time: 3.5cm^2. Indexed valve area by pressure half-time: 2.1cm^2/m^2. Peak gradient (D): 2.2mm Hg. Left atrium: The atrium was normal in size. Atrial septum: No defect or patent foramen ovale was identified. Right ventricle: The cavity size was normal. Wall thickness was normal. Systolic function was normal. Pulmonic valve: Doppler: There was no evidence for stenosis. There was no significant regurgitation. Peak gradient (S): 2.4mm Hg. Tricuspid valve: Doppler: There was mild regurgitation. Pulmonary artery: Poorly visualized. Pulmonary systolic pressure was in the range of 15mm Hg to 25mm Hg. Right atrium: The atrium was normal in size. Pericardium: There was no pericardial effusion. Systemic veins: Inferior vena cava: The vessel was normal in size. The respirophasic diameter changes were in the normal range (greater than or equal to 50%), consistent with normal central venous pressure. Measurements Left ventricle Value Reference LV ID, ED, PLAX 4.3 cm 3.5 - 6.0 LV ID, ES, PLAX 2.8 cm 2.1 - 4.0 LV PW thickness, ED, PLAX 0.8 cm LV end-diastolic volume, 1-p A2C 81 ml LV ejection fraction, 1-p A2C 55 % LV end-diastolic volume, 1-p A4C 79 ml LV ejection fraction, 1-p A4C 52 % LV e', lateral 0.068 m/sec LV E/e', lateral 11 LV e', medial 0.053 m/sec LV E/e', medial 14 LV e', average 0.061 m/sec LV E/e', average 12 Ventricular septum Value Reference IVS thickness, ED, PLAX 0.9 cm LVOT Value Reference LVOT ID, A-P 2.0 cm LVOT area 3 cm^2 LVOT peak velocity, S 1.26 m/sec LVOT mean velocity, S 0.74 m/sec LVOT VTI, S 27.3 cm LVOT peak gradient, S 6.4 mm Hg LVOT mean gradient, S 2.8 mm Hg Stroke volume (SV), LVOT DP 83 ml Stroke index (SV/bsa), LVOT DP 50 ml/m^2 Aortic valve Value Reference Aortic valve peak velocity, S 1.5 m/sec Aortic valve mean velocity, S 1 m/sec Aortic valve VTI, S 28.0 cm Aortic mean gradient, S 4.4 mm Hg Aortic peak gradient, S 8.7 mm Hg VTI ratio, LVOT/AV 0.97 Aortic valve area, VTI 3 cm^2 Velocity ratio, peak, LVOT/AV 0.85 Aortic valve area, peak velocity 2.6 cm^2 Velocity ratio, mean, LVOT/AV 0.75 Aortic valve area, mean velocity 2.3 cm^2 Aortic valve area/bsa, mean velocity 1.4 cm^2/m^2 Aorta Value Reference Aortic root ID, ED 3.4 cm Ascending aorta ID, A-P, S 3.1 cm Left atrium Value Reference LA ID, A-P, ES 2.8 cm LA ID/bsa, A-P 1.7 cm/m^2 <=2.2 LA volume, ES, 2-p 50 ml LA volume/bsa, ES, 2-p 30 ml/m^2 LA/aortic root ratio 0.83 Mitral valve Value Reference Mitral E-wave peak velocity 0.74 m/sec Mitral A-wave peak velocity 0.8 m/sec Mitral deceleration time 220 ms 150 - 230 Mitral pressure half-time 64 ms Mitral peak gradient, D 2.2 mm Hg Mitral E/A ratio, peak 0.93 Mitral valve area, PHT, DP 3.5 cm^2 Tricuspid valve Value Reference Tricuspid regurg peak velocity 2 m/sec Tricuspid peak RV-RA gradient 16.7 mm Hg Right atrium Value Reference RA area, ES, A4C 13.7 cm^2 8.3 - 19.5 Pulmonic valve Value Reference Pulmonic peak gradient, S 2.4 mm Hg Legend: (L) and (H) allie values outside specified reference range. I have personally reviewed the images and have reviewed and edited the reported findings. Electronically signed by Josh Gallo MD 10/21/2018 14:31
== END 2018-10-21 00:55 ==
PROVIDERS: PCP Internal Medicine; Visit Provider Internal Medicine
DX: I51.7 Cardiomegaly (principal); I34.0 Nonrheumatic mitral (valve) insufficiency; I10 Essential (primary) hypertension
CPT/HCPCS: 93306

== ENCOUNTER 2018-11-14 11:14 | Outpatient (CLI) | payer OTHER, SELFPAY | END 2018-11-14 11:34 | PROVIDERS: PCP Internal Medicine; Visit Provider Nurse Practitioner | DX: I10 Essential (primary) hypertension (principal); I51.7 Cardiomegaly; Z01.818 Encounter for other preprocedural examination | CPT/HCPCS: 93005; 93010 ==

== ENCOUNTER 2018-11-29 12:48 | Outpatient (CLI) | payer OTHER, SELFPAY ==
--- NOTE | 2018-11-29 11:45 | DI.US_ITS ---
SYMPTOM/DIAGNOSIS: EDEMA, R60.9, ? DVT, LT LEG SWELLING, S/P HIP REPLACEMENT LEFT LOWER EXTREMITY ULTRASOUND: The femoral and popliteal veins as well as visualized calf veins and saphenous vein are freely compressible. No thrombus is visible. There is no evidence of Bowles's cyst or hematoma. IMPRESSION: Negative left lower extremity ultrasound. No evidence of DVT.
== END 2018-11-29 13:08 ==
PROVIDERS: PCP Internal Medicine; Visit Provider Nurse Practitioner
DX: R60.9 Edema, unspecified (principal); M79.89 Other specified soft tissue disorders; Z96.642 Presence of left artificial hip joint
CPT/HCPCS: 93971

== ENCOUNTER 2018-12-05 16:58 | Emergency (ER) | payer OTHER, SELFPAY ==
[2018-12-05 17:09] VITALS: BP 156/87; PULSE 81; RESP 16; TEMP 37; O2SAT 98
--- NOTE | 2018-12-05 17:25 | ED.GENADUL_ITS ---
Discharge Plan Disposition Patient Disposition: HOME Condition: Stable Discharge Details Chief Complaint: Orthopedic Clinical Impression: Chronic pain of left lower extremity, Chronic pain in left foot Primary Care Provider: Rosaura Rueda ED Provider: Shireen Ferreira Home Meds and New Rx's Prescriptions: Continued cyanocobalamin (vitamin B-12) 1,000 mcg/mL solution 1,000 mcg IM 2x/mo Qty: 6 RF: 11 ranitidine HCl 300 mg capsule 300 mg PO DAILY Qty: 90 RF: 3 hydromorphone 2 mg tablet 2 mg PO Q3H PRNRF: 0 multivitamin with iron 1 EACH tablet 1 ea PO DAILY RF: 0 cholecalciferol (vitamin D3) 3,000 UNIT tablet 3,000 unit PO DAILY Qty: 100 RF: 4 esomeprazole magnesium [Nexium] 40 MG capsule,delayed release(DR/EC) 40 mg PO DAILY Qty: 90 RF: 4 ascorbic acid (vitamin C) [Vitamin C] 1,000 MG tablet extended release 1,000 mg PO DAILY RF: 0 magnesium oxide 400 MG capsule 400 mg PO DAILY RF: 0 calcium citrate-vitamin D3 [Citracal + D Maximum] 1 EACH tablet 1 ea PO DAILY RF: 0 melatonin 10 MG tablet 10 mg PO HS RF: 0 (DME) BD Eclipse Luer-Sterling 1 EACH syringe 1 syringe IM TWICE MONTHLY Qty: 6 RF: 4 duloxetine [Cymbalta] 60 mg capsule,delayed release(DR/EC) 60 mg PO DAILY Qty: 90 RF: 4 quetiapine 100 mg tablet 100 mg PO BID Qty: 14 RF: 0 topiramate 50 mg tablet See Rx Instructions PO BID Qty: 180 RF: 4 Travatan Z 0.004 % drops 1 drp OU QHS Qty: 1 RF: 4 mirtazapine [Remeron] 30 mg tablet 30 mg PO HS Qty: 90 RF: 3 clonazepam 1 mg tablet 1 mg PO BID Qty: 180 RF: 0 gabapentin 300 mg capsule 600 mg PO TID Qty: 90 RF: 1 Discharge Instructions Instructions: Chronic Pain (ED), Leg Pain (ED) Additional Instructions: Take your Dilaudid as directed. You can try taking 1 tab 3 times daily (every 8 hours) or up to every 3 hours as prescribed. Follow-up with your planned MRI of your left lower leg and foot. Call your orthopedics office and insurance company to ensure that authorization has gone through so that you may schedule your MRI as soon as possible. Return to the emergency department if you develop any worsening or new concerning symptoms such as fever, chest pain, shortness of breath, increased pain, redness or swelling. Discharge Data Discharge Physician: Shireen Ferreira Medical Decision Making 73-year-old female with history of anxiety, depression, recent left total hip replacement last month at [facility] with a history of chronic left leg and foot pain for several months who presents with worsening left leg and foot pain after stopping her Dilaudid per the direction of her physical therapist yesterday. She denies any fever, chest pain, shortness of breath, leg weakness or numbness. Vitals within normal limits. She appears nontoxic. Her left hip incision wound appears to be healing well with ecchymosis extending down to her lower leg and foot which is expected status post her recent hip surgery. She has no left calf tenderness. Her compartments are soft and she is neurovascularly intact and clinically exam does not appear consistent with compartment syndrome. She has normal range of motion at her left hip, knee and ankle with some pain at left hip. At this point time, I feel that patient's symptoms are likely worse due to stopping her Dilaudid. She was seen here last week and had an ultrasound of her left lower extremity which was negative for DVT. She has an MRI ordered through her orthopedic surgeon of her lower leg and foot but she is waiting authorization to schedule this. She was also seen at [facility] within the last couple weeks after her left THR in which she had x-rays extending from her thigh down to her foot which she states all were negative. [facility] noted that patient is prescribed Dilaudid 2 mg every 3 hours as needed. She states she is taking a 2 mg tab once daily. She is advised to take the Dilaudid as directed to help with her leg pain until she is able to obtain MRI. She is advised to follow-up with her orthopedic surgeon for reevaluation and to return here with any worsening or concerning symptoms such as fever, chest pain, shortness of breath, worsening leg pain, or development of numbness, weakness, tingling or erythema. Medical Records Medical records reviewed: Yes I reviewed the patient's medical records. HPI General Mode of arrival: ambulatory . Date/Time Provider Initiated Documentation: 12/05/18 17:04 . Limitations to Documentation: no limitations . Information obtained by: patient . HPI Narrative: Patient is a 73-year-old female with a history of anxiety, depression, GERD, history of left total hip replacement at [facility] last month who presents with her chronic left leg and foot pain which she has had for several months prior to her left hip replacement and has become worse since she stopped her Dilaudid yesterday. Her surgeon at [facility] prescribed Dilaudid 2 mg every 3 hours for pain but patient had only been taking it once daily. Patient states she was seen by her physical therapist at home yesterday and was advised to stop taking her Dilaudid as she had been on it too long. Patient states this is when her left leg and foot pain has become worse. Patient states she spoke to her orthopedic surgeon about her chronic leg and foot pain and he has ordered an outpatient MRI but this is still pending insurance authorization. Home health had called earlier stating they were sending patient in for concern for compartment syndrome but patient states her pain has been ongoing for months and no different since her surgery except since stopping her Dilaudid yesterday. She denies any new injury, fever, chest pain, shortness of breath, leg numbness, weakness or tingling. She has been using her walker to ambulate. Related Data Home Medications Medication Instructions Recorded Confirmed multivitamin with iron 1 ea PO DAILY 09/14/12 12/05/18 cholecalciferol (vitamin D3) 3,000 unit PO DAILY #100 tab-cap 04/09/14 12/05/18 esomeprazole magnesium [Nexium] 40 mg PO DAILY #90 tab-cap 05/23/16 12/05/18 ascorbic acid (vitamin C) [Vitamin 1,000 mg PO DAILY 08/02/16 12/05/18 C] magnesium oxide 400 mg PO DAILY 01/22/17 12/05/18 calcium citrate-vitamin D3 1 ea PO DAILY 04/23/17 12/05/18 [Citracal + D Maximum] BD Eclipse Luer-Sterling #6 syringe 08/08/17 11/29/18 melatonin 10 mg PO HS 08/08/17 12/05/18 duloxetine 60 mg capsule,delayed 60 mg PO DAILY #90 tab-cap 02/20/18 12/05/18 release quetiapine 100 mg tablet 100 mg PO BID #14 tab 03/27/18 12/05/18 topiramate 50 mg tablet See Rx Instructions PO BID #180 tab 05/29/18 12/05/18 travoprost 0.004 % eye drops 1 drp OU QHS #1 oz 06/26/18 12/05/18 mirtazapine 30 mg tablet 30 mg PO HS #90 tab-cap 09/18/18 11/29/18 cyanocobalamin (vitamin B-12) 1,000 mcg IM 2x/mo #6 vial 09/23/18 12/05/18 1,000 mcg/mL injection solution ranitidine HCl 300 mg capsule 300 mg PO DAILY #90 cap 09/23/18 12/05/18 clonazepam 1 mg tablet 1 mg PO BID #180 tab-cap 09/30/18 12/05/18 gabapentin 300 mg capsule 600 mg PO TID #90 cap 11/20/18 12/05/18 hydromorphone 2 mg tablet 2 mg PO Q3H PRN tab 11/29/18 12/05/18 Previous Rx's Medication Instructions Recorded BD Eclipse Luer-Sterling #6 syringe 08/08/17 duloxetine 60 mg capsule,delayed 60 mg PO DAILY #90 tab-cap 02/20/18 release quetiapine 100 mg tablet 100 mg PO BID #14 tab 03/27/18 topiramate 50 mg tablet See Rx Instructions PO BID #180 tab 05/29/18 travoprost 0.004 % eye drops 1 drp OU QHS #1 oz 06/26/18 mirtazapine 30 mg tablet 30 mg PO HS #90 tab-cap 09/18/18 cyanocobalamin (vitamin B-12) 1,000 mcg IM 2x/mo #6 vial 09/23/18 1,000 mcg/mL injection solution ranitidine HCl 300 mg capsule 300 mg PO DAILY #90 cap 09/23/18 clonazepam 1 mg tablet 1 mg PO BID #180 tab-cap 09/30/18 gabapentin 300 mg capsule 600 mg PO TID #90 cap 11/20/18 Allergies Allergy/AdvReac Type Severity Reaction Status Date / Time Iodinated Contrast Media Allergy Severe ANAPHYLAXIS Verified 12/05/18 17:21 [Iodinated Contrast- Oral and IV Dye] wool Allergy Intermediate Verified 12/05/18 17:21 amoxicillin trihydrate Allergy Mild SKIN RASH Verified 12/05/18 17:21 [From Augmentin] cimetidine Allergy Unknown Verified 12/05/18 17:21 Sulfa (Sulfonamide Allergy Unknown UNSURE Verified 12/05/18 17:21 Antibiotics) cyclobenzaprine HCl AdvReac Severe PVC'S Verified 12/05/18 17:21 [From Flexeril] escitalopram oxalate AdvReac Intermediate Parkinsonian Verified 12/05/18 17:21 [From Lexapro] symtoms carbidopa [From Sinemet] AdvReac Mild LOOSES Verified 12/05/18 17:21 CONTROL levodopa [From Sinemet] AdvReac Mild LOOSES Verified 12/05/18 17:21 CONTROL lisinopril AdvReac Mild COUGH Verified 12/05/18 17:21 fentanyl AdvReac Unknown Verified 12/05/18 17:21 [employer] laundry Allergy Intermediate Itching Uncoded 12/05/18 17:21 detergent Sheer strip band-aid Allergy Intermediate Rash Uncoded 12/05/18 17:21 General Stated Complaint: Orthopedic SARAH: 3 Review of Systems Review of Systems All systems reviewed & are unremarkable except as noted in HPI and below Constitutional Reports as per HPI, Denies chills and Denies fever(s) Eyes Denies blurry vision ENT Denies dizziness, Denies sore throat and Denies throat swelling Cardiovascular Denies chest pain and Denies dyspnea Respiratory Denies cough and Denies dyspnea Gastrointestinal Denies abdominal pain, Denies diarrhea and Denies vomiting Genitourinary Denies hematuria and Denies dysuria Musculoskeletal Denies back pain, Denies numbness and Reports other (chronic L leg and foot pain) Integumentary/Breasts Denies lesions and Denies rash Neurologic Denies dizziness, Denies focal weakness and Denies numbness Allergic/Immunologic Denies throat swelling [facility] Medical History Alcohol abuse (Inactive 06/07/16) has had no ETOH x 1 week, does not plan to drink prior to surgery Anxiety (Inactive) stable Depressive disorder (Inactive 09/26/12) severe depression; suicide attempts x 3; multiple hospitalizations h/o anorexia PSYCHIATRIST 07/2017 DR. 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 GERD (gastroesophageal reflux disease) (Inactive 09/25/12) stable Lumbar radicular syndrome (Inactive) Sciatica (Inactive 09/26/12) left-seen at [facility]; 2007-right Tardive dyskinesia (Inactive) This was of 2 years duration and related to lexapro use. Has been stable. Returned only once following a decrease in topamax Surgical History Appendectomy (~2004) foot surgery 10/09 right [facility] 08/10 RIGHT FOOT RECONSTRUCTION [facility] [place] Fracture, Closed Treatment 11/04-COMPLEX FRACTURE TIBIAL PLATEAU LEFT KNEE 2008-COMPLEX FRACTURE RIGHT WRIST Replacement of total knee joint (~12/2000) right Status post left hip replacement (Acute) Total replacement of hip (~2006) right Family History Mother Myasthenia gravis Macular degeneration Father Personal history of malignant neoplasm Prostate, skin Stroke Sister Personal history of malignant neoplasm Breast lumps Brother Personal history of malignant neoplasm Prostate Grandfather Personal history of malignant neoplasm Throat Grandfather Essential hypertension Personal history of malignant neoplasm Hyperlipidemia Grandmother Personal history of malignant neoplasm Throat Grandmother Essential hypertension Heart disease Stroke Social History Smoking/Tobacco Use Status: Never Alcohol Intake: current Alcohol Intake frequency: holidays/special occasions only Drug use: Never Substance use type: does not use Household members: none Housing: house What type of physical activity do you participate in: walking, resistance training and running Do you feel safe at home: Yes Do you feel safe in your relationship?: Yes Exam Const General: cooperative and no acute distress HENMT Head: normal to inspection Face and sinus: normal facial exam Eyes General: appearance normal, both eyes and all related structures EOM: EOM intact bilaterally Neck Neck: normal visual inspection and No submandibular swelling Lymphatic: no lymphadenopathy noted Chest Chest: normal inspection of the chest and no tenderness Resp Effort & Inspection: normal respiratory effort and able to speak in complete sentences Auscultation: clear to auscultation bilaterally Cardio Rate: regular rate Rhythm: regular rhythm GI Inspection: normal to inspection Palpation: soft, not firm, not rigid and nontender Auscultation: normal bowel sounds Skin General skin exam: no rashes or lesions noted Neuro General: alert, awake and oriented x3 Cognition: normal cognition Speech: speech normal Motor: muscle tone normal throughout Sensory Exam: no sensory deficits noted Extrem General: no calf tenderness bilaterally Other: Left hip with healing incision site covered with tape without surrounding edema, erythema. There is ecchymosis noted to left thigh distal to left hip incision. Left lower leg with healing ecchymosis to anterior aspect and surrounding edema. No left calf tenderness. Compartments soft throughout entire leg. Healing ecchymosis noted to left lateral foot without erythema, edema, open wounds, rash or lesions. No signs of cellulitis. Left DP/PT pulses intact. Normal range of motion with some pain at left hip, and without pain at left knee or left ankle. Psych Appearance: grossly normal Mental Status: mental status grossly normal Speech and Movement: speech and movement normal Affect: normal affect Course Vital Signs Temperature 98.6 F 12/05/18 17:09 Pulse 81 12/05/18 17:09 Respiratory Rate 16 12/05/18 17:09 Blood Pressure 156/87 H 12/05/18 17:09 Pulse Oximetry 98 12/05/18 17:09 Temperature 98.6 F 12/05/18 17:09 Temperature Source Temporal Artery Scan 12/05/18 17:09 Pulse 81 12/05/18 17:09 Respiratory Rate 16 12/05/18 17:09 Respiratory Effort Non-Labored 12/05/18 17:13 Blood Pressure 156/87 H 12/05/18 17:09 Blood Pressure Position Supine 12/05/18 17:09 Pulse Oximetry 98 12/05/18 17:09 Oxygen Delivery Method Room Air 12/05/18 17:09 Oxygen Flow Rate 0 12/05/18 17:09 Pain Level 8 12/05/18 17:09 Comment 12/05/18 17:09
[2018-12-05] MEDS: HYDROmorphone 2 MG TAB PO (18:09)
== END 2018-12-05 18:40 | disposition home or self-care (01) ==
PROVIDERS: Emergency Provider Physician Assistant; PCP Internal Medicine
DX: M79.662 Pain in left lower leg (principal); M79.672 Pain in left foot; G89.29 Other chronic pain; T40.2X6A Underdosing of other opioids, initial encounter; F41.8 Other specified anxiety disorders; Z96.642 Presence of left artificial hip joint; I10 Essential (primary) hypertension
CPT/HCPCS: 99283

== ENCOUNTER 2018-12-12 06:19 | Emergency (ER) | payer OTHER, SELFPAY ==
[2018-12-12] VITALS (81 sets, daily range): BP systolic 130–164; BP diastolic 60–86; PULSE 79–97; RESP 10–60; TEMP 36.3; O2SAT 92–100
--- NOTE | 2018-12-12 06:28 | DI.COMBO_ITS ---
SYMPTOM/DIAGNOSIS: TRAUMA/FALL PELVIS AND LEFT FEMUR: 12/12 AP view of the pelvis and multiple views of the femur were obtained. The bones of the pelvis appear intact on this single AP view. There are bilateral hip prostheses in position. There is a fracture of the left femur which extends along the femoral prosthetic component with moderate displacement. The distal-most aspect of the prosthetic component lies in the marrow cavity. No additional fracture seen. LEFT SHOULDER: 12/12 Three views were obtained. No shoulder fracture identified. There is an apparent fracture of the left 8th rib posterolaterally. This does appear to be acute.
--- NOTE | 2018-12-12 06:33 | W.ED.GENAD ---
Discharge Plan Disposition Patient Disposition: [facility] Condition: Stable Discharge Details Chief Complaint: Orthopedic Clinical Impression: Closed fracture of left hip Primary Care Provider: Rosaura Rueda ED Provider: Josh Durham Herron Meds and New Rx's Prescriptions: No Action cyanocobalamin (vitamin B-12) 1,000 mcg/mL solution 1,000 mcg IM 2x/mo Qty: 6 RF: 11 ranitidine HCl 300 mg capsule 300 mg PO DAILY Qty: 90 RF: 3 hydromorphone 2 mg tablet 2 mg PO Q3H PRNRF: 0 multivitamin with iron 1 EACH tablet 1 ea PO DAILY RF: 0 cholecalciferol (vitamin D3) 3,000 UNIT tablet 3,000 unit PO DAILY Qty: 100 RF: 4 esomeprazole magnesium [Nexium] 40 MG capsule,delayed release(DR/EC) 40 mg PO DAILY Qty: 90 RF: 4 ascorbic acid (vitamin C) [Vitamin C] 1,000 MG tablet extended release 1,000 mg PO DAILY RF: 0 magnesium oxide 400 MG capsule 400 mg PO DAILY RF: 0 calcium citrate-vitamin D3 [Citracal + D Maximum] 1 EACH tablet 1 ea PO DAILY RF: 0 melatonin 10 MG tablet 10 mg PO HS RF: 0 (DME) BD Eclipse Luer-Sterling 1 EACH syringe 1 syringe IM TWICE MONTHLY Qty: 6 RF: 4 duloxetine [Cymbalta] 60 mg capsule,delayed release(DR/EC) 60 mg PO DAILY Qty: 90 RF: 4 quetiapine 100 mg tablet 100 mg PO BID Qty: 14 RF: 0 topiramate 50 mg tablet See Rx Instructions PO BID Qty: 180 RF: 4 Travatan Z 0.004 % drops 1 drp OU QHS Qty: 1 RF: 4 mirtazapine [Remeron] 30 mg tablet 30 mg PO HS Qty: 90 RF: 3 clonazepam 1 mg tablet 1 mg PO BID Qty: 180 RF: 0 gabapentin 300 mg capsule 600 mg PO TID Qty: 90 RF: 1 Discharge Data Discharge Date/Time-TO BE ENTERED AT DEPARTURE: 12/12/18 16:46 Medical Decision Making <Wang Vincent MD - Last Filed: 12/16/18 23:06> Patient presented to ED status post fall with left inner thigh pain. She smells of alcoholic beverages. Review of her chart shows she has a history of alcohol problems. When specifically asked if she was drinking last night she admits yes. May be why she does not recall why or how she exactly fell. I will get head and cervical spine CT scan though she has no complaints of headache or neck pain, history of alcohol use last night with inability to recollect exactly why she fell makes this prudent. EKG is obtained and is unremarkable. X-ray of the left shoulder, pelvis, thigh ordered. IV in place and fluids started. Zofran and Dilaudid given. Laboratory studies sent. Patient laboratory studies are unremarkable. Alcohol level is 3. Chemistries and CBC are okay. Per radiology, Dr. Pena, head and cervical spine are negative. Shoulder x-ray negative but questionable eighth rib fracture. Patient continues to deny chest or back pain. There is a femur fracture involving the prosthetic area. We will send the patient back for chest abdomen pelvis CT to be sure were not missing any other injuries given the suggestion of a rib fracture on x-ray. Patient will be signed over to Dr. Durham who will follow up on imaging and then contact orthopedics for the femur fracture. She is neurovascularly intact distally. Medical Records Medical records reviewed: Yes I reviewed the patient's medical records. Lab Data Lab results reviewed: Yes I reviewed the patient's lab results. ECG Data Attestation: I personally reviewed and interpreted this ECG (s) as follows: Interpretation: Sinus rhythm at 81. Normal axis and intervals. No acute ST changes. <Josh Durham MD - Last Filed: 12/12/18 12:27> pt's ct imaging per dR. pena shows no acute findings and she remains hd stable. Given she had the hip replaced november 19 with ortho at [facility] with Dr. Dalton will try and transfer here there with her wishes being to see the same orthopedist Discussed case with [facility] as her surgeon is there and they accepted, Dr. Fitzpatrick from medicine accepting provider Lab Data Lab results reviewed: Yes I reviewed the patient's lab results. HPI <Wang Vincent MD - Last Filed: 12/16/18 23:06> General Mode of arrival: EMS. Date/Time Provider Initiated Documentation: 12/12/18 06:46. Limitations to Documentation: no limitations. Information obtained by: patient, EMS and RN notes reviewed. HPI Narrative: Patient presents to ED by EMS with complaint of left thigh pain status post fall last night. Patient initially told nursing and EMS that she lost her balance and fell. For me she reports she is not sure why she fell. She does not think she passed out. She does not think she hit her head. She only complains of pain in the left thigh. She recently had a left hip replacement about 3 weeks ago. She is using Dilaudid for pain. She denies having headache, neck pain, back pain, chest pain, shortness of breath, abdominal pain. She apparently was on the floor most of the night until early this morning when she was finally able to get to the phone. Related Data Home Medications Medication Instructions Recorded Confirmed multivitamin with iron 1 ea PO DAILY 09/14/12 12/12/18 cholecalciferol (vitamin D3) 3,000 unit PO DAILY #100 tab-cap 04/09/14 12/12/18 esomeprazole magnesium [Nexium] 40 mg PO DAILY #90 tab-cap 05/23/16 12/12/18 ascorbic acid (vitamin C) [Vitamin 1,000 mg PO DAILY 08/02/16 12/12/18 C] magnesium oxide 400 mg PO DAILY 01/22/17 12/12/18 calcium citrate-vitamin D3 1 ea PO DAILY 04/23/17 12/12/18 [Citracal + D Maximum] BD Eclipse Luer-Sterling #6 syringe 08/08/17 11/29/18 melatonin 10 mg PO HS 08/08/17 12/12/18 duloxetine 60 mg capsule,delayed 60 mg PO DAILY #90 tab-cap 02/20/18 12/12/18 release quetiapine 100 mg tablet 100 mg PO BID #14 tab 03/27/18 12/12/18 topiramate 50 mg tablet See Rx Instructions PO BID #180 tab 05/29/18 12/12/18 travoprost 0.004 % eye drops 1 drp OU QHS #1 oz 06/26/18 12/12/18 mirtazapine 30 mg tablet 30 mg PO HS #90 tab-cap 09/18/18 12/12/18 cyanocobalamin (vitamin B-12) 1,000 mcg IM 2x/mo #6 vial 09/23/18 12/12/18 1,000 mcg/mL injection solution ranitidine HCl 300 mg capsule 300 mg PO DAILY #90 cap 09/23/18 12/12/18 clonazepam 1 mg tablet 1 mg PO BID #180 tab-cap 09/30/18 12/12/18 gabapentin 300 mg capsule 600 mg PO TID #90 cap 11/20/18 12/12/18 hydromorphone 2 mg tablet 2 mg PO Q3H PRN tab 11/29/18 12/12/18 Previous Rx's Medication Instructions Recorded BD Eclipse Luer-Sterling #6 syringe 08/08/17 duloxetine 60 mg capsule,delayed 60 mg PO DAILY #90 tab-cap 02/20/18 release quetiapine 100 mg tablet 100 mg PO BID #14 tab 03/27/18 topiramate 50 mg tablet See Rx Instructions PO BID #180 tab 05/29/18 travoprost 0.004 % eye drops 1 drp OU QHS #1 oz 06/26/18 mirtazapine 30 mg tablet 30 mg PO HS #90 tab-cap 09/18/18 cyanocobalamin (vitamin B-12) 1,000 mcg IM 2x/mo #6 vial 09/23/18 1,000 mcg/mL injection solution ranitidine HCl 300 mg capsule 300 mg PO DAILY #90 cap 09/23/18 clonazepam 1 mg tablet 1 mg PO BID #180 tab-cap 09/30/18 gabapentin 300 mg capsule 600 mg PO TID #90 cap 11/20/18 Allergies Allergy/AdvReac Type Severity Reaction Status Date / Time Iodinated Contrast Media Allergy Severe ANAPHYLAXIS Verified 12/12/18 06:18 [Iodinated Contrast- Oral and IV Dye] wool Allergy Intermediate Verified 12/12/18 06:18 amoxicillin trihydrate Allergy Mild SKIN RASH Verified 12/12/18 06:18 [From Augmentin] cimetidine Allergy Unknown Verified 12/12/18 06:18 Sulfa (Sulfonamide Allergy Unknown UNSURE Verified 12/12/18 06:18 Antibiotics) cyclobenzaprine HCl AdvReac Severe PVC'S Verified 12/12/18 06:18 [From Flexeril] escitalopram oxalate AdvReac Intermediate Parkinsonian Verified 12/12/18 06:18 [From Lexapro] symtoms carbidopa [From Sinemet] AdvReac Mild LOOSES Verified 12/12/18 06:18 CONTROL levodopa [From Sinemet] AdvReac Mild LOOSES Verified 12/12/18 06:18 CONTROL lisinopril AdvReac Mild COUGH Verified 12/12/18 06:18 fentanyl AdvReac Unknown Verified 12/05/18 17:21 [employer] laundry Allergy Intermediate Itching Uncoded 12/05/18 17:21 detergent Sheer strip band-aid Allergy Intermediate Rash Uncoded 12/05/18 17:21 General Stated Complaint: Orthopedic SARAH: 2 Review of Systems <Wang Vincent MD - Last Filed: 12/16/18 23:06> Review of Systems Narrative: 01/13 Review of Systems completed and is negative except as stated above in HPI (Systems reviewed: Const, Eyes, ENT, Resp, CV, GI, , MSK, Skin, Neuro) PFSH <Wang Vincent MD - Last Filed: 12/16/18 23:06> Medical History Alcohol abuse (Inactive 06/07/16) has had no ETOH x 1 week, does not plan to drink prior to surgery Anxiety (Inactive) stable Depressive disorder (Inactive 09/26/12) severe depression; suicide attempts x 3; multiple hospitalizations h/o anorexia PSYCHIATRIST 07/2017 DR. ROSAURA PINEDA [address] [id number] [id number] Essential hypertension (Inactive 02/17/13) stable Generalized osteoarthrosis (Inactive) right knee-surgery; right hip-THR right; DJD L1-2; Mri of L-S spine 01/02-neg. GERD (gastroesophageal reflux disease) (Inactive 09/25/12) stable Lumbar radicular syndrome (Inactive) Sciatica (Inactive 09/26/12) left-seen at [facility]; 2007-right Tardive dyskinesia (Inactive) This was of 2 years duration and related to lexapro use. Has been stable. Returned only once following a decrease in topamax Surgical History Appendectomy (~2004) foot surgery 10/09 right [facility] 08/10 RIGHT FOOT RECONSTRUCTION [facility] [place] Fracture, Closed Treatment 11/04-COMPLEX FRACTURE TIBIAL PLATEAU LEFT KNEE 2008-COMPLEX FRACTURE RIGHT WRIST Replacement of total knee joint (~12/2000) right Status post left hip replacement (Acute) Total replacement of hip (~2006) right Social History Smoking/Tobacco Use Status: Never Alcohol Intake: current Alcohol Intake frequency: 3 or more drinks per day Alcohol type: wine Drug use: Never Substance use type: does not use Details: pt states last etoh use was 12/11/18 at 1900 Household members: none Housing: house What type of physical activity do you participate in: walking, resistance training and running Do you feel safe at home: Yes Do you feel safe in your relationship?: Yes Exam <Wang Vincent MD - Last Filed: 12/16/18 23:06> Narrative Exam Narrative: Vitals: Afebrile. Elevated BP otherwise normal vitals. Const: WDWN elderly female in NAD. HEENT: NC/AT. Normal facial exam. Eyes: Normal conjunctiva and sclera. Neck: Supple. Trachea midline. No c-spine tenderness. Lungs: Normal respiratory effort. Lungs are clear. No chest wall tenderness. Cor: RRR without murmur/gallop. Good radial pulses. GI: Soft. NT/ND. No guarding or rebound. Neuro: A+O x 3. CN grossly in tact. Good strength/sensation. Normal speech/mentation. Ext: RUE normal. LUE with normal ROM but has bruising and tenderness over the AC area. RLE normal. LLE with healing incision of hip and old ecchymosis traveling down the leg. She is unable to move leg without pain in the medial proximal thigh area. She is NVI in tact distally in all four. Skin: Warm and dry. No erythema. No lacerations/abrasions. Course <Wang Vincent MD - Last Filed: 12/16/18 23:06> Vital Signs Vital signs: Vital Signs Temperature 97.3 F L 12/12/18 06:13 Pulse 84 12/12/18 06:13 Respiratory Rate 17 12/12/18 06:13 Blood Pressure 155/86 H 12/12/18 06:13 Pulse Oximetry 99 12/12/18 06:13 Temperature 97.3 F L 12/12/18 06:13 Temperature Source Skin 12/12/18 06:13 Pulse 84 12/12/18 06:13 Respiratory Rate 17 12/12/18 06:13 Respiratory Effort Non-Labored 12/12/18 06:23 Blood Pressure 155/86 H 12/12/18 06:13 Blood Pressure Position Supine 12/12/18 06:13 Pulse Oximetry 99 12/12/18 06:13 Oxygen Delivery Method Room Air 12/12/18 06:13 Oxygen Flow Rate 0 12/12/18 06:13 Pain Level 10 12/12/18 06:25 Sign Out <Wang Vincent MD - Last Filed: 12/16/18 23:06> Sign Out Data: Sign Out Comment: Pending CT chest abdomen pelvis and discussion with orthopedics. Last updated by Wang Vincent MD at 12/12/18 07:54
--- NOTE | 2018-12-12 06:39 | DI.CT_ITS ---
SYMPTOM/DIAGNOSIS: TRAUMA/FALL CERVICAL SPINE CT: 12/12 CT examination of the cervical spine was performed utilizing multi slice acquisition and multi planar reconstruction. There is a mild right torticollis. There are degenerative changes of the facet joints without evidence of facet dislocation. No acute fracture seen. No cervical mass or adenopathy identified. Tracheolaryngeal structures appear intact. The visualized lung apices are clear. CONCLUSION: No evidence of acute cervical spine fracture. CRANIAL CT: 12/12 Noncontrast. There is moderate generalized cerebral atrophy. There are patchy areas of decreased attenuation in periventricular white matter consistent with microvascular ischemic change. There is no evidence of acute intracranial hemorrhage, mass effect or midline shift. The orbital and temporal bone structures appear intact. CONCLUSION: No evidence of acute intracranial process.
[2018-12-12] MEDS: HYDROmorphone 2 MG/ML VIAL 0.5 MG IVP ×4 (06:43→16:38)
[2018-12-12] MEDS: Ondansetron 4 MG/2 ML VIAL IVP (06:44)
[2018-12-12 07:05] LABS: Abs Immature Grans 0.01 k/cumm (0.0-0.09); Absolute Basophil Count 0.02 k/cumm (0.0-0.2); Absolute Eosinophil Count 0.04 k/cumm (0.0-0.7); Absolute Lymphocyte Count 0.46 k/cumm (1.2-3.4); Absolute Monocyte Count 0.38 k/cumm (0.11-0.7); Absolute Neutrophil Count 4.78 k/cumm (1.2-6.7); Basophils % 0.4; Eosinophils % 0.7; HGB 11.1 g/dL (12.0-15.5); Immature Grans % 0.2; Lymphocytes % 8.1; Mean Corp. HGB Concentration 33.6 g/dL (32.0-36.0); Mean Corpuscular Hemoglobin 31.9 pg (27.0-33.0); Mean Corpuscular Volume 94.8 fL (80-95); Mean Platelet Volume 8.6 fL (8.0-11.0); Monocytes % 6.7; Neutrophils % 83.9; Platelet Count 320 x1000/uL (130-400); RBC 3.48 m/cumm (4.00-5.20); RBC Distribution Width 13.2 % (11.7-14.6); White Blood Cell Count 5.69 k/cumm (4.4-10.8)
[2018-12-12 07:20] LABS: ALT 18 U/L (14-59); AST 24 U/L (15-37); Albumin 3.8 g/dL (3.4-5.0); Alkaline Phosphatase 82 U/L (46-116); BUN 7 mg/dL (7-18); Bilirubin, Total 0.4 mg/dL (0.2-1.0); CREATININE 0.55 mg/dL (0.55-1.02); Calcium 8.2 mg/dL (8.5-10.1); Chloride 97 mmol/L (98-107); Creatine Kinase 165 U/L (26-192); ETHANOL BLOOD 3.9 mg/dL (<3); Glucose 105 mg/dL (70-100); Magnesium 1.7 mg/dL (1.8-2.4); Potassium 3.6 mmol/L (3.5-5.1); Sodium 131 mmol/L (136-145); Total Protein 6.5 g/dL (6.4-8.2)
[2018-12-12 07:26] LABS: Troponin I < 0.05 ng/mL (0.00-0.06)
[2018-12-12] MEDS: Lactated Ringers 1,000 ML 125 ML IV (07:37)
--- NOTE | 2018-12-12 07:54 | DI.CT_ITS ---
SYMPTOM/DIAGNOSIS: TRAUMA/FALL CHEST,ABDOMEN AND PELVIS CT: 12/12 CT examination of the chest, abdomen and pelvis was performed without contrast administration due to patient's history of prior contrast reaction. No gross mediastinal hematoma or adenopathy. No pneumothorax or pleural effusion. Incidental 5x7 mm in diameter left lower lobe intrapulmonary nodule which is well circumscribed and noncalcified. No consolidation or contusion. Plain films show suspected left 8th rib fracture and this is not confirmed on CT nor is there evidence of additional thoracic fracture. Lumbosacral spine and pelvis appear intact. Bilateral hip prostheses noted with periprosthetic fracture of the proximal left femur which is moderately displaced. No intraperitoneal fluid or gas. Noncontrast appearance of liver, spleen and pancreas is unremarkable. Adrenals and kidneys unremarkable in appearance by noncontrast criteria. Abdominal aorta unremarkable by noncontrast appearance. No gross abdominal wall hernia or hematoma. Soft tissue hematoma is noted anterior to the proximal femoral fracture site. No evidence of bowel obstruction or bowel injury. CONCLUSION: Left femoral periprosthetic fracture as described.on plain films. No additional injury seen. Incidental 7 mm noncalcified left lower lobe pulmonary nodule. Follow up low dose chest CT recommended in 6 months to monitor for neoplastic disease.
[2018-12-12 08:44] LABS: Bilirubin Negative (Negative); Blood Negative (Negative); Clarity Clear (Clear); Glucose Negative (Negative); Ketones Negative (Negative); Leukocyte Esterase Negative (Negative); Nitrite Negative (Negative); Specific Gravity 1.015 (1.005-1.025); Urobilinogen 0.2 EU/dL (Up TO 0.2)
[2018-12-12] MEDS: clonazePAM 1 MG TAB PO (09:26)
[2018-12-12] MEDS: Gabapentin 300 MG CAP 600 MG PO (09:26)
[2018-12-12] MEDS: QUEtiapine 100 MG TAB PO (09:30)
[2018-12-12] MEDS: DULoxetine 30 MG CAP 60 MG PO (09:30)
[2018-12-12] MEDS: Esomeprazole 40 MG CAPCR PO (09:50)
--- NOTE | 2018-12-12 10:45 | DI.CT_ITS ---
SYMPTOM/DIAGNOSIS: [place] [facility] THORACIC SPINE CT: CT reconstructions of the thoracic spine were obtained utilizing raw data from chest, abdomen and pelvic CT. No acute fracture is seen. Mild degenerative endplate changes noted throughout the thoracic region. LUMBOSACRAL SPINE CT: CT reconstructions of the lumbosacral spine were obtained from raw data from chest, abdomen and pelvic CT. There is disc space narrowing with vacuum disc phenomenon at L 2-3, L 3-4 and L 4-5 consistent with disc degeneration. Mild hypertrophic endplate spurring noted throughout the lumbar spine. Mild facet hypertrophic changes seen. No evidence of fracture or dislocation.
[2018-12-12] MEDS: Normal Saline 1,000 ML 125 ML IV (12:58)
[2018-12-12] MEDS: Dexamethasone 4 MG/ML VIAL (14:39)
[2018-12-12] MEDS: Bupivacaine 0.25% Pres-Free 30 ML VIAL (14:39)
[2018-12-12] MEDS: Bupivacaine 0.25% Pres-Free 10 ML VIAL (14:39)
[2018-12-12] MEDS: EPINEPHrine 1 MG/ML AMP pres-free (14:40)
== END 2018-12-12 16:46 | disposition short-term general hospital (02) ==
PROVIDERS: Emergency Medicine; Emergency Provider Emergency Medicine; PCP Internal Medicine
DX: S72.392A Other fracture of shaft of left femur, initial encounter for closed fracture (principal); M97.02XA Periprosthetic fracture around internal prosthetic left hip joint, initial encounter; S40.012A Contusion of left shoulder, initial encounter; W19.XXXA Unspecified fall, initial encounter; R91.1 Solitary pulmonary nodule; Z96.652 Presence of left artificial knee joint
CPT/HCPCS: 36415; 51702; 64450; 71250; 73552; 80053; 82550; 93005; 96361; 96374; 96375; 99285; 70450; 72125; 72170; 73030; 74176; 80320; 81003; 83735; 84484; 85025; 93010; J0171; J1100; J2405

== ENCOUNTER 2019-05-19 03:07 | Outpatient (RCR) | payer OTHER, SELFPAY ==
[2019-05-15] MEDS: cefTRIAXone 1 GM/50 ML BAG IVPB (11:44)
[2019-05-15] MEDS: Normal Saline Flush 10 ML SYR IVP (11:44)
[2019-05-16] MEDS: cefTRIAXone 1 GM/50 ML BAG IVPB (11:14)
[2019-05-16] MEDS: Normal Saline Flush 10 ML SYR IVP (11:22)
[2019-05-17] MEDS: Normal Saline Flush 10 ML SYR IVP (12:35)
[2019-05-17 12:36] VITALS: BP 144/89; PULSE 92; RESP 16; TEMP 37; O2SAT 97
[2019-05-18] MEDS: Normal Saline Flush 10 ML SYR IVP ×2 (11:28→12:18)
[2019-05-19] MEDS: Normal Saline Flush 10 ML SYR IVP (11:52)
== END 2019-05-31 23:59 | disposition home or self-care (01) ==
LOC: INF 03:07
PROVIDERS: PCP Internal Medicine; Visit Provider Family Medicine
DX: L03.211 Cellulitis of face (principal)
CPT/HCPCS: 96365; J0696; J1335

== ENCOUNTER 2019-06-04 11:40 | Outpatient (CLI) | payer OTHER, SELFPAY ==
[2019-06-04 12:57] LABS: Absolute Basophil Count 0.01 k/cumm (0.0-0.2); Absolute Eosinophil Count 0.08 k/cumm (0.0-0.7); Absolute Lymphocyte Count 0.85 k/cumm (1.2-3.4); Absolute Monocyte Count 0.22 k/cumm (0.11-0.7); Absolute Neutrophil Count 2.36 k/cumm (1.2-6.7); Basophils % 0.3; Eosinophils % 2.3; HCT 41.9 % (36.0-46.0); HGB 13.8 g/dL (12.0-15.5); Lymphocytes % 24.1; Mean Corp. HGB Concentration 32.9 g/dL (32.0-36.0); Mean Corpuscular Hemoglobin 29.8 pg (27.0-33.0); Mean Corpuscular Volume 90.5 fL (80-95); Mean Platelet Volume 9.1 fL (8.0-11.0); Monocytes % 6.3; Platelet Count 340 x1000/uL (130-400); RBC 4.63 m/cumm (4.00-5.20); RBC Distribution Width 15.5 % (11.7-14.6); White Blood Cell Count 3.52 k/cumm (4.4-10.8)
[2019-06-04 13:54] LABS: Total Iron Binding Capacity 348 ug/dL (250-450)
[2019-06-04 14:02] LABS: ALT 25 U/L (14-59); AST 27 U/L (15-37); Albumin 4.1 g/dL (3.4-5.0); Alkaline Phosphatase 87 U/L (46-116); Anion Gap 10.8 mmol/L (3-11); BUN 9 mg/dL (7-18); Bilirubin, Total 0.5 mg/dL (0.2-1.0); CO2 26.2 mmol/L (21.0-32.0); CREATININE 0.73 mg/dL (0.55-1.02); Calcium 9.4 mg/dL (8.5-10.1); Chloride 98 mmol/L (98-107); Glucose 100 mg/dL (74-106); Potassium 4.6 mmol/L (3.5-5.1); Sodium 135 mmol/L (136-145); Total Protein 7.2 g/dL (6.4-8.2)
[2019-06-04 15:32] LABS: Iron 38 ug/dL (50-170)
== END 2019-06-04 12:00 ==
PROVIDERS: PCP Internal Medicine; Visit Provider Internal Medicine
DX: E04.1 Nontoxic single thyroid nodule (principal); R50.9 Fever, unspecified; E61.1 Iron deficiency; L03.211 Cellulitis of face
CPT/HCPCS: 36415; 80053; 83540; 83550; 84443; 85025

== ENCOUNTER → 2019-08-12 08:21 | Outpatient (BNVA) | payer OTHER, SELFPAY | PROVIDERS: PCP Family Medicine; Referring Provider Physician Assistant Surgical; Visit Provider Psychiatry & Neurology Neurology | DX: M54.10 Radiculopathy, site unspecified (principal); I10 Essential (primary) hypertension | CPT/HCPCS: 95885; 95908; 99214 ==

== ENCOUNTER 2020-02-19 00:39 | Outpatient (CLI) | payer OTHER, SELFPAY ==
--- NOTE | 2020-02-19 07:00 | DI.NM_ITS ---
APPROVED REPORT Exam: Exercise Treadmill Patient Location: Out-Patient Room/Bed: Stress Nurse: Tiffany Gaona RN BMI: 24.62 Baseline Rhythm: Sinus Rhythm Indications: WOODS, CP. Medical History Medical History: ETOH, Anxiety, Depression, HTN, GERD, Hypercholesterolemia. Cardiac Medications: Famotidine, Pantoprazole, Magnesium. , Allergies: Ceftriaxone, Cephalexin, Iondinated Contrast Media, Penicillins, wool, Amoxicillin Trihydr ate, Cimetidine, Sulfa, Clindamycin, Cyclobenzaprine HCl, Escitalopram Oxalate, Carbidopa, Levodopa, Lisinopril, Fentanyl. Cardiac Risk Factors: HTN Previous Cardiac Procedures: None. Pretest Chest Pain Characteristics: No chest pain Exercise History: Sedentary Physical Disabilities: Legs Lung Sounds: Clear to auscultation Heart Sounds: Regular Stress Test Details Test: Exercise stress testing was performed using a Damaso protocol. Nuclear Acquisition: Rest Tc-99m/Stress Tc-99m 1 day Rest Isotope: Tc-99m Sestamibi. Dose: 10.6 Date: 02/19/2020 Injection Time: 0900 Stress Isotope: Tc-99m Sestamibi. Dose: 31.5 Date: 02/19/2020 Injection Time: 1030 HR Resting HR Supine: 75 bpm Max Heart Rate (APMHR): 148.876427 bpm Resting HR Standin bpm Target HR (85% APMHR): 125.775962 bpm Max HR Achieved: 140 bpm % of APMHR: 94.59 Recovery HR: 91 bpm HR response to stress: Normal HR response to stress BP Resting BP Supine: 144/88 mmHg Resting BP Standin/84 mmHg Max BP: 168/84 mmHg Recovery BP: 148/84 mmHg BP response to stress: Normal blood pressure response to stress. ECG Resting ECG: Sinus Rhythm Ectopy: None. Stress ECG: Sinus Tachycardia ST Change: No significant ST segment changes noted. Arrhythmia: rare PVC. Recovery ECG: Sinus Rhythm Recovery ST Change: No significant ST segment changes noted. Recovery Arrhythmia: rare PVC, occasional PAC. Clinical Reason for Termination: Fatigue Stress Symptoms: Dyspnea Exercise duration: 5 min27 sec Highest Stage Reached: Stage 2: 2.5 mph at 12% grade. Exercise capacity: 7.07 METs Stress ECG Conclusion 1. Resting electrocardiogram is normal 2. Patient exercised on the Damaso protocol and completed a workload of 7.07 METS limited by dyspnea 3. Normal heart rate and blood pressure response to exercise. The patient achieved 94% of predicted heart rate for age 4. Electrocardiographically there was no evidence of myocardial ischemia 5. Rare ventricular ectopic beats, occasional atrial premature beats were noted Stress Test Summary STAGE Time (mins) Speed (mph) Grade (%) HR BP SYMPTOMS METS Supine 75 144/88 Standing 85 140/84 1 3 1.7 10 120 152/90 Dyspnic 4.6 2 6 2.5 12 136 Dyspnic 7 1 min recovery 128 168/84 3 min recovery 102 160/82 6 min recovery 91 148/84 MPI Conclusion Normal myocardial perfusion without evidence of ischemia or prior infarction EF 80% Radiologist Interpretation Radiologist Interpretation by: Wang Perkins MD Interpretation Date/Time: 02/19/2020 15:43:33
== END 2020-02-19 00:59 ==
PROVIDERS: PCP Family Medicine; Visit Provider Family Medicine
DX: R07.9 Chest pain, unspecified (principal); I10 Essential (primary) hypertension; I49.1 Atrial premature depolarization
CPT/HCPCS: 78452; 93016; 93018; 93017

== ENCOUNTER 2021-01-04 10:24 | Outpatient (CLI) | payer OTHER, SELFPAY ==
[2021-01-04 12:21] LABS: HCT 44.2 % (36.0-46.0); HGB 14.7 g/dL (11.2-15.7); MCHC 33.3 % (32.0-36.0); MCV 96.3 fL (80-95); MPV 9.7 fL (8.0-11.0); Platelet Count 291 10^3/uL (130-400); RBC 4.59 10^6/uL (3.93-5.22); RDW-SD 46.8 fL; WBC 3.58 10^3/uL (4.4-10.8)
[2021-01-04 12:37] LABS: Hemoglobin A1C 5.1 % (<5.7)
[2021-01-04 12:57] LABS: TSH (W/Ref FT4) 1.04 uIU/mL (0.36-3.74); Vitamin B12 > 2000 pg/mL (193-986)
[2021-01-06 10:18] LABS: 1,25-Dihydroxyvitamin D 48 pg/mL (18-78)
== END 2021-01-04 10:25 | disposition home or self-care (01) ==
LOC: LOS 10:24
PROVIDERS: PCP Family Medicine; Referring Provider Family Medicine; Visit Provider Family Medicine
DX: E03.9 Hypothyroidism, unspecified; E11.9 Type 2 diabetes mellitus without complications; E55.9 Vitamin D deficiency, unspecified; R53.83 Other fatigue; Z23 Encounter for immunization; D64.9 Anemia, unspecified
CPT/HCPCS: 36415; 85027; 82607; 82652; 83036; 84443

== ENCOUNTER 2021-11-24 15:40 | Emergency (ER) | payer MEDICARE, SELFPAY ==
[2021-11-24 15:44] VITALS: BP 146/77; PULSE 99; TEMP 36.6; O2SAT 95
--- NOTE | 2021-11-24 18:00 | DI.CT_ITS ---
Exam(s) CT HEAD CERVICAL SPINE WO EXAM: CT HEAD CERVICAL SPINE WO CLINICAL HISTORY: falls, [place]. TECHNIQUE: Imaging Protocol: Axial computed tomography images with coronal and sagittal reformatted images were created and reviewed COMPARISON: CT CT HEAD CERVICAL SPINE WO from 12/12/2018 FINDINGS: BRAIN: There are no skull fractures nor fluid in the visualized paranasal sinuses. There is no evidence of intracranial hemorrhage, mass effect, or shift of midline structures. There are no extra-axial fluid collections. The ventricles are not enlarged or shifted and there is no blo od within the ventricular system nor within the basal cisterns. CERVICAL SPINE: There is no evidence of acute fracture nor listhesis. No significant prevertebral soft tissue swelli ng. In the posterior aspect of the lower cervical spinal canal there is a calcified density measuring 6 b y 4 millimeters, not having the appearance of an acute fracture fragment. This is just anterior to t he origin of the spinous process at the C6 level. This has increased in size but is unchanged in po sition from 2019. There is no significant facet joint malalignment. No significant osseous lesions evident. IMPRESSION: No acute intracranial findings on this noninfused CT scan of the brain. No evidence of cervical spine fracture, malalignment, nor acute compromise of the cervical spinal can al. Incidentally noted is a heavily calcified density posteriorly in the epidural space at C6 level measu ring 4 x 6 x7 millimeters, increased in size from December 2018. Possibly calcified meningioma. RADIATION DOSE DELIVERED: 1,302.52mGy.cm Total DLP DATA REPOSITORY: All CT scans at this facility are submitted to the National Radiology Data Registry (NRDR) Dose Index Registry (DIR) with the [employer] (ACR). RADIATION OPTIMIZATION: All CT scans at this facility use at least one of these dose optimization te chniques: automated exposure control; mA and/or kV adjustment per patient size (includes targeted exa ms where dose is matched to clinical indication); or iterative reconstruction.
--- NOTE | 2021-11-24 18:00 | RT.EKG_ITS ---
APPROVED REPORT Exam: Resting ECG Reason for Exam: frequent falls Patient Location: E HR:79 bpm ECG Measurements Heart Rate 79 AXIS DE 156 P 49 QRSd 96 QRS 14 QT 372 T 31 QTc 426 Conclusion Sinus rhythm...normal P axis, V-rate 60- 99
[2021-11-24 18:36] LABS: Abs Immature Grans 0.01 10^3/uL (0.0-0.06); Absolute Basophil Count 0.03 10^3/uL (0.0-0.2); Absolute Eosinophil Count 0.09 10^3/uL (0.0-0.7); Absolute Lymphocyte Count 1.04 10^3/uL (1.2-3.4); Absolute Monocyte Count 0.41 10^3/uL (0.1-0.8); Absolute Neutrophil Count 5.32 10^3/uL (1.2-6.7); Basophils % 0.4; Eosinophils % 1.3; HCT 41.7 % (36.0-46.0); Immature Grans % 0.1; Lymphocytes % 15.1; MCH 32.4 pg (27.0-33.0); MCHC 33.6 % (32.0-36.0); MCV 97 fL (80-95); MPV 9.1 fL (8.0-11.0); Monocytes % 5.9; Neutrophils % 77.2; Platelet Count 261 10^3/uL (130-400); RBC 4.32 10^6/uL (3.93-5.22); RDW 12.7 % (11.7-14.6); RDW-SD 45.3 fL
[2021-11-24 18:55] LABS: ALT 20 U/L (14-59); AST 19 U/L (15-37); Alkaline Phosphatase 71 U/L (46-116); BUN 14 mg/dL (7-18); Bilirubin, Total 0.6 mg/dL (0.2-1.0); CREATININE 0.9 mg/dL (0.55-1.02); Calcium 9.1 mg/dL (8.5-10.1); Chloride 105 mmol/L (98-107); Glucose 101 mg/dL (74-106); Magnesium 1.9 mg/dL (1.8-2.4); Potassium 3.8 mmol/L (3.5-5.1); Sodium 143 mmol/L (136-145); Total Protein 7.3 g/dL (6.4-8.2)
--- NOTE | 2021-11-24 19:02 | DI.RAD_ITS ---
Exam(s) XR ELBOW LT COMPLETE EXAM: XR ELBOW LT COMPLETE CLINICAL HISTORY: pain post fall. TECHNIQUE: 2D digital imaging was performed. COMPARISON: No exams were available for comparison FINDINGS: 3 views No evidence of fracture or joint effusion. No swelling of the olecranon bursa. Radial head and neck appear unremarkable. Epicondyles unremarkable. Bone density normal. No osseous lesions. IMPRESSION: No fracture evident DATA REPOSITORY: RADIATION DOSE DELIVERED:
--- NOTE | 2021-11-24 19:02 | DI.RAD_ITS ---
Exam(s) XR CHEST 1V IN DI DEPT EXAM: XR CHEST 1V IN DI DEPT CLINICAL HISTORY: frequent falls. TECHNIQUE: 2D digital imaging was performed. COMPARISON: CR LEFT RIBS TO INCLUDE CXR from 06/24/2014 FINDINGS: Single AP portable view. Heart size is upper normal. The mediastinum is not widened. Lungs are clear. No infiltrates nor obvious pleural effusions. IMPRESSION: No acute pulmonary findings on this single AP portable view of the chest. DATA REPOSITORY: RADIATION DOSE DELIVERED: All CT scans at this facility use at least one of these dose optimization techniques: automated exposure control; mA and/or kV adjustment per patient size (includes targeted e xams where dose is matched to clinical indication); or iterative reconstruction.
--- NOTE | 2021-11-24 19:03 | DI.RAD_ITS ---
Exam(s) XR WRIST LT COMPLETE EXAM: XR WRIST LT COMPLETE CLINICAL HISTORY: pain post fall. TECHNIQUE: 2D digital imaging was performed. COMPARISON: No exams were available for comparison FINDINGS: 3 views There is an acute fracture of the distal radius add diaphysis-metaphysis junction. Mild displacement . No prominent angulation. No carpal dislocation. No significant ulnar variance. Ulnar styloid ap pears intact. Incidentally noted is an element of chondrocalcinosis in the radiocarpal joint. Also benign nonexpan sile cyst in the mid aspect of the scaphoid. No scaphoid fracture identified. IMPRESSION: Minimally displaced distal radius fracture as described above. DATA REPOSITORY: RADIATION DOSE DELIVERED:
--- NOTE | 2021-11-24 19:12 | DI.VRAD_ITS ---
PROCEDURE INFORMATION: Exam: XR Left Wrist Exam date and time: 11/24/2021 6:47 PM Age: 76 years old Clinical indication: Pain; Wrist; Left TECHNIQUE: Imaging protocol: Radiologic exam of the Left wrist. Views: 3 or more views. COMPARISON: No relevant prior studies available. FINDINGS: Bones/joints: Acute, mildly displaced transverse fracture of the distal radial diametaphysis, with minimal dorsal angulation of the distal fragment. Calcification in the ulnocarpal joint space, which com be seen with chondrocalcinosis. No dislocation. Degenerative changes of the 1st carpometacarpal joint, manifest by mild joint space narrowing and minimal subchondral sclerosis. Soft tissues: Mild distal forearm soft tissue swelling. IMPRESSION: 1. Acute, mildly displaced transverse fracture of the distal radial diametaphysis, with minimal dorsal angulation of the distal fragment. 2. Mild distal forearm soft tissue swelling. Dictated and Authenticated by: Chevy Butts MD. Ordering:FILEMON Russell MD
--- NOTE | 2021-11-24 19:13 | DI.VRAD_ITS ---
PROCEDURE INFORMATION: Exam: XR Left Elbow Exam date and time: 11/24/2021 6:49 PM Age: 76 years old Clinical indication: Pain; Elbow; Left TECHNIQUE: Imaging protocol: Radiologic exam of the Left elbow. Views: 3 or more views. COMPARISON: None. FINDINGS: Bones/joints: Normal. Soft tissues: Normal. IMPRESSION: No acute findings. Dictated and Authenticated by: Chevy Butts MD. Ordering:FILEMON Russell MD
--- NOTE | 2021-11-24 19:35 | DI.VRAD_ITS ---
PROCEDURE INFORMATION: Exam: XR Chest Exam date and time: 11/24/2021 6:54 PM Age: 76 years old Clinical indication: Injury or trauma; Other: Falls frequently; Other: Frequent falls TECHNIQUE: Imaging protocol: Radiologic exam of the chest. Views: 1 view. COMPARISON: CT CHEST/ABD/PEL WO 12/12/2018 8:18 AM FINDINGS: Lungs: Lungs are mildly hyperexpanded, compatible chronic obstructive pulmonary physiologic changes. Pleural spaces: Unremarkable. No pleural effusion. No pneumothorax. Heart/Mediastinum: Normal. Bones/joints: Multilevel thoracic spine degenerative disc space narrowing and osteophyte formation. Degenerative changes of the acromioclavicular joints. IMPRESSION: No acute cardiopulmonary abnormality. Dictated and Authenticated by: Chevy Butts MD. Ordering:FILEMON Russell MD
[2021-11-24] MEDS: Acetaminophen 325 MG TAB 650 MG PO (19:52)
[2021-11-24] MEDS: oxyCODONE 5 MG TAB PO (19:53)
[2021-11-24 19:55] LABS: Bilirubin Negative (Negative); Blood Negative (Negative); Clarity Clear (Clear); Glucose Negative (Negative); Ketones 15 mg/dL (Negative); Leukocyte Esterase Negative (Negative); Nitrite Negative (Negative); Urobilinogen 0.2 EU/dL (Up TO 0.2)
--- NOTE | 2021-11-24 20:04 | DI.VRAD_ITS ---
PROCEDURE INFORMATION: Exam: CT Head Without Contrast Exam date and time: 11/24/2021 6:56 PM Age: 76 years old Clinical indication: Pain; Falls, hi; TECHNIQUE: Imaging protocol: Computed tomography of the head without contrast. COMPARISON: CT HEAD CERVICAL SPINE WO 12/12/2018 7:07 AM FINDINGS: Brain: There is no acute intracranial hemorrhage, mass effect or midline shift. No large acute territorial infarct identified. There are patchy regions of hypodensity in the periventricular and subcortical white matter, likely on the basis of chronic microvascular ischemic disease. Cerebral ventricles: The ventricles and sulci are prominent in size, which is at least in part due to global cerebral volume loss. Paranasal sinuses: Visualized sinuses are unremarkable. No fluid levels. Mastoid air cells: Visualized mastoid air cells are well aerated. Bones/joints: No acute fracture. Soft tissues: Unremarkable. IMPRESSION: No acute intracranial hemorrhage, mass effect or midline shift. PROCEDURE INFORMATION: Exam: CT Cervical Spine Without Contrast Exam date and time: 11/24/2021 6:56 PM Age: 76 years old Clinical indication: Pain; Falls, hi; TECHNIQUE: Imaging protocol: Computed tomography of the cervical spine without contrast. COMPARISON: CT HEAD CERVICAL SPINE WO 12/12/2018 7:07 AM FINDINGS: Bones/joints: No acute fracture. Normal alignment. Discs/Spinal canal/Neural foramina: No significant disc protrusion. No severe spinal canal stenosis. No significant neural foraminal narrowing. Lungs: Lung apices are normal. Soft tissues: Unremarkable. IMPRESSION: No acute findings. Dictated and Authenticated by: Fariba Ansari MD. Ordering:FILEMON Russell MD
--- NOTE | 2021-11-24 20:12 | W.ED.GENAD ---
Discharge Plan Disposition Patient Disposition: HOME Condition: Stable Discharge Details Clinical Impression: Fracture of left wrist, Falls frequently Primary Care Provider: Crow Darnell ED Provider: Yvonne Gil Home Meds and New Rx's Prescriptions: Continued Restasis MultiDose 0.05 % drops 1 drp OP Q12H melatonin 3 mg capsule 3 mg PO HS PRN travoprost [Travatan Z] 0.004 % drops 1 drp OU QHS Qty: 1 4RF Rx Instructions: Issue one bottle. cholecalciferol (vitamin D3) 3,000 UNIT tablet 6,000 unit PO DAILY Qty: 100 Vitamin C 1,000 MG tablet extended release 1,000 mg PO DAILY triamcinolone acetonide 0.1 % cream 1 applic TP DIRECTED magnesium oxide 400 mg magnesium capsule 500 mg PO DAILY (DME) BD Eclipse Luer-Sterling 3 mL 25 x 5/8 syringe 1 syrg IM TWICE MONTHLY Qty: 6 4RF Rx Instructions: 3 ML SYRINGE WITH 25G X 1 NEEDLE FOR VIT B12 INJECTIONS cyanocobalamin (vitamin B-12) 1,000 mcg/mL solution 1,000 mcg IM 2x/mo Qty: 6 11RF Rx Instructions: 1 ML twice a month mirtazapine 30 mg tablet See Rx Instructions .ROUTE .COMPLEX Qty: 60 5RF Dose Instruction: TAKE 1 TABLET BY MOUTH AT BEDTIME Rx Instructions: TAKE 1 TABLET BY MOUTH AT BEDTIME duloxetine 60 mg capsule,delayed release(DR/EC) 60 mg PO DAILY Qty: 90 3RF topiramate 50 mg tablet See Rx Instructions PO BID Qty: 180 4RF Dose Instruction: 100 mgs in morning and 50 mgs evening PO BID; 100 mg (2 tabs) QAM, 50 mg (1 tab) QPM PO BID; Rx Instructions: 100 mgs in morning and 50 mgs evening PO BID; 100 mg (2 tabs) QAM, 50 mg (1 tab) QPM PO BID; clonazepam 1 mg tablet 1 mg PO BID MDD 3 tabs Qty: 65 5RF Rx Instructions: 1 tab twice a day and an additional tablet prn for extreme anxiety pantoprazole 40 mg tablet,delayed release (DR/EC) 40 mg PO BID Qty: 180 3RF gabapentin 600 mg tablet 300 - 900 mg PO BID Qty: 180 1RF Rx Instructions: 300 mg in AM; 900 mg PM (per Psych) quetiapine 100 mg tablet 100 mg PO BID Qty: 180 3RF Rx Instructions: 100 mg twice daily famotidine 20 mg tablet 20 mg PO HS Discharge Instructions Additional Instructions: Take Tylenol as needed for pain You may take oxycodone sparingly, I would recommend taking one half tab as needed for pain uncontrolled with Tylenol only And apply ice and elevate as needed for discomfort Follow-up with orthopedics, the number is listed below Please return earlier should you have new or worsening complaints Recommend moving your commode to your bedroom at night to avoid the fall Referrals: Sam Duke MD [ [facility] STAFF PHYSICIAN] - Crow Darnell MD [Primary Care Provider] - Discharge Data Discharge Date/Time-TO BE ENTERED AT DEPARTURE: 11/24/21 20:54 Medical Decision Making Patient is alert and oriented, her CT head and cervical spine do not show evidence of acute abnormality per radiology interpretation my review Her chest x-ray and her elbow x-ray per radiology interpretation my review do not show acute abnormality, she does have a radius fracture on her left wrist film, she will be placed on Ortho follow-up and placed on the doctor splint for comfort She will be given a small amount of oxycodone and will take Tylenol as needed for pain We discussed some intervention she may take at home to assist her so she does not fall frequently, her labs are fine and her EKG is within normal limits as well as her urinalysis She will need a commode to her bedroom and follow-up closely with her PCP in the outpatient setting She is discharged home and feels comfortable being discharged home at this time Medical Records Medical records reviewed: Yes I reviewed the patient's medical records. Lab Data Lab results reviewed: Yes I reviewed the patient's lab results. HPI General Date/Time Provider Initiated Documentation: 11/24/21 17:04. HPI Narrative: This very pleasant 76-year-old female presents with recurrent falls. She she loses her balance because she is rushing to the bathroom in the middle of the night but is unsure. She denies loss of consciousness. She fell last evening while she was going to the bathroom. She landed on her left wrist and hit her head. She thinks she may have lost consciousness after she fell but she does remember hitting her head. She denies any nausea or vomiting. She has a mild headache. Her predominant complaint is her left wrist. She denies any vomiting additional strength or sensation change. She has any fever or chills. She otherwise felt well. She does live independently. Related Data Home Medications Medication Instructions Recorded Confirmed cholecalciferol (vitamin D3) 75 6,000 unit PO DAILY #100 tab-caps 04/09/14 11/24/21 mcg (3,000 unit) tablet ascorbic acid (vitamin C) 1,000 mg 1,000 mg PO DAILY 08/02/16 11/24/21 tablet,extended release (Vitamin C ER) triamcinolone acetonide 0.1 % 1 applic topical DIRECTED 05/15/19 11/24/21 topical cream cyclosporine 0.05 % eye drops 1 drp ophthalmic (eye) Q12H 06/04/19 11/24/21 (Restasis MultiDose) magnesium oxide 500 mg PO DAILY 09/22/19 11/24/21 melatonin 3 mg capsule 3 mg PO HS PRN 05/07/20 11/24/21 travoprost 0.004 % eye drops 1 drp OU QHS #1 oz 09/03/20 11/24/21 (Travatan Z) syringe with needle 3 mL 25 x 5/8 #6 SYRGS 11/30/20 11/24/21 (BD Eclipse Luer-Sterling) cyanocobalamin (vitamin B-12) 1,000 mcg IM 2x/mo #6 vials 03/23/21 11/24/21 1,000 mcg/mL injection solution mirtazapine 30 mg tablet See Rx Instructions .Route 05/24/21 11/24/21 .COMPLEX #60 tabs duloxetine 60 mg capsule,delayed 60 mg PO DAILY #90 caps 08/01/21 11/24/21 release topiramate 50 mg tablet See Rx Instructions PO BID #180 08/01/21 11/24/21 tabs clonazepam 1 mg tablet 1 mg PO BID #65 tabs 09/23/21 11/24/21 gabapentin 600 mg tablet 300 - 900 mg PO BID #180 tabs 10/24/21 11/24/21 pantoprazole 40 mg tablet,delayed 40 mg PO BID #180 tabs 10/24/21 11/24/21 release quetiapine 100 mg tablet 100 mg PO BID #180 tabs 10/24/21 11/24/21 famotidine 20 mg tablet 20 mg PO HS 11/24/21 11/24/21 Previous Rx's Medication Instructions Recorded travoprost 0.004 % eye drops 1 drp OU QHS #1 oz 09/03/20 (Travatan Z) syringe with needle 3 mL 25 x 5/8 #6 SYRGS 11/30/20 (BD Eclipse Luer-Sterling) cyanocobalamin (vitamin B-12) 1,000 mcg IM 2x/mo #6 vials 03/23/21 1,000 mcg/mL injection solution mirtazapine 30 mg tablet See Rx Instructions .Route 05/24/21 .COMPLEX #60 tabs duloxetine 60 mg capsule,delayed 60 mg PO DAILY #90 caps 08/01/21 release topiramate 50 mg tablet See Rx Instructions PO BID #180 08/01/21 tabs clonazepam 1 mg tablet 1 mg PO BID #65 tabs 09/23/21 gabapentin 600 mg tablet 300 - 900 mg PO BID #180 tabs 10/24/21 pantoprazole 40 mg tablet,delayed 40 mg PO BID #180 tabs 10/24/21 release quetiapine 100 mg tablet 100 mg PO BID #180 tabs 10/24/21 Allergies Allergy/AdvReac Type Severity Reaction Status Date / Time ceftriaxone [From Rocephin] Allergy Severe RASH, Verified 11/24/21 15:50 REDNESS, SWELLING, cephalexin [From Keflex] Allergy Severe RASH, Verified 11/24/21 15:50 REDNESS, SWELLING, NAUSEA Iodinated Contrast Media Allergy Severe ANAPHYLAXIS Verified 11/24/21 15:50 [Iodinated Contrast- Oral and IV Dye] Penicillins Allergy Severe RASH, Verified 11/24/21 15:50 REDNESS, SWELLING wool Allergy Intermediate Verified 11/24/21 15:50 amoxicillin trihydrate Allergy Mild SKIN RASH Verified 11/24/21 15:50 [From Augmentin] cimetidine Allergy Unknown Verified 11/24/21 15:50 Sulfa (Sulfonamide Allergy Unknown UNSURE Verified 11/24/21 15:50 Antibiotics) clindamycin Allergy REDNESS, Verified 11/24/21 15:50 RASH, SWELLING cyclobenzaprine HCl AdvReac Severe PVC'S Verified 11/24/21 15:50 [From Flexeril] escitalopram oxalate AdvReac Intermediate Parkinsonian Verified 11/24/21 15:50 [From Lexapro] symtoms carbidopa [From Sinemet] AdvReac Mild LOOSES Verified 11/24/21 15:50 CONTROL levodopa [From Sinemet] AdvReac Mild LOOSES Verified 11/24/21 15:50 CONTROL lisinopril AdvReac Mild COUGH Verified 11/24/21 15:50 fentanyl AdvReac Unknown Verified 11/24/21 15:50 [employer] laundry Allergy Intermediate Itching Uncoded 11/24/21 15:50 detergent Sheer strip band-aid Allergy Intermediate Rash Uncoded 11/24/21 15:50 General Stated Complaint: Trauma SARAH: 3 Review of Systems All systems reviewed & are unremarkable except as noted in HPI and below PFSH All Active Problems (Updated 11/24/21 @ 20:19 by RONI Aponte) Fracture of left wrist (Acute) Falls frequently (Acute) Left wrist injury (Acute) Head injury, closed, with LOC of unknown duration (Acute) Fall (Acute) Skin lesions, generalized (Acute) Toe pain (Acute) Chronic cough (Acute) Fatigue (Acute) Head trauma (Acute) Lumbar radicular syndrome (Acute) Chronic insomnia (Acute) Anxiety (Acute) stable WOODS (dyspnea on exertion) (Acute) Weight gain (Acute) GERD (gastroesophageal reflux disease) (Acute 09/25/12) with dysphagia Radiculopathy (Acute) Xerodermia (Acute) Seborrheic keratosis (Acute) Cellulitis, face (Acute) Leg pain, left (Acute) Foot pain, left (Acute) Bipolar disorder (Acute) Periprosthetic fracture around internal prosthetic left hip joint, sequela (Acute) Closed hip fracture requiring operative repair (Acute) Status post left hip replacement (Acute) Hip pain, left (Chronic) Anorexia nervosa (Acute) 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 Nondisplaced fracture of femoral condyle (Acute) Dr. Duke is taking care of this. Vitamin D deficiency (Acute 04/08/14) Vitamin B 12 deficiency (Acute 02/03/14) Vaginal irritation (Acute 08/23/15) Right foot pain (Acute 09/05/13) h/o ORIF 3rd metatarsal fx persistent pain despite repeat surgery Malignant neoplasm of skin (Acute) basal cell ca on face Irritable bowel syndrome (Acute 10/06/14) stable Urinary, incontinence, stress female (Acute 09/26/12) Fatigue (Acute 10/06/14) Elevated fasting glucose (Acute 06/07/16) Accidental injury (Acute 02/02/16) Abnormal weight loss (Acute 12/03/12) h/o anorexia Abnormal vision (Acute 01/09/13) vision loss, unclear etiology Medical History (Updated 11/24/21 @ 20:19 by RONI Aponte) Alcohol abuse (06/07/16) has had no ETOH x 1 week, does not plan to drink prior to surgery Depressive disorder (09/26/12) severe depression; suicide attempts x 3; multiple hospitalizations h/o anorexia PSYCHIATRIST 07/2017 DR[address] 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 Health maintenance examination History of IBS Hypercholesterolemia Notalgia paresthetica Optic neuropathy Overactive bladder Sciatica (09/26/12) left-seen at [facility]; 2007-right Tardive dyskinesia This was of 2 years duration and related to lexapro use. Has been stable. Returned only once following a decrease in topamax Surgical History (Updated 09/22/19 @ 09:34 by Anika Ruvalcaba) Appendectomy (~2004) foot surgery 10/09 right [facility] 08/10 RIGHT FOOT RECONSTRUCTION [facility] [place] Fracture, Closed Treatment 11/04-COMPLEX FRACTURE TIBIAL PLATEAU LEFT KNEE 2008-COMPLEX FRACTURE RIGHT WRIST H/O discectomy History of left hip replacement Replacement of total knee joint (~12/2000) right Total replacement of hip (~2006) right Family History Mother Myasthenia gravis Macular degeneration Father Personal history of malignant neoplasm Prostate, skin Stroke Sister Personal history of malignant neoplasm Breast lumps Brother Personal history of malignant neoplasm Prostate Grandfather Personal history of malignant neoplasm Throat Grandfather Essential hypertension Personal history of malignant neoplasm Hyperlipidemia Grandmother Personal history of malignant neoplasm Throat Grandmother Essential hypertension Heart disease Stroke Social History Smoking/Tobacco Use Status: Never Smoking risk assessment performed?: Yes Alcohol Intake: current Alcohol Intake frequency: a few times a week Alcohol type: wine Drug use: Never Substance use type: does not use Details: pt states last etoh use was 12/11/18 at 1900 Household members: none Housing: house What type of physical activity do you participate in: walking, resistance training and running Do you feel safe at home: Yes Do you feel safe in your relationship?: Yes Exam Const General: cooperative, comfortable and no acute distress Orientation: alert and oriented x3 HENMT Head: normal to inspection Other: Uvula midline, oropharynx patent Eyes Pupils: PERRL Neck Other: no midline tenderness Resp Effort & Inspection: normal respiratory effort Auscultation: clear to auscultation bilaterally Cardio Rate: regular rate Rhythm: regular rhythm GI Inspection: normal to inspection Skin General skin exam: no rashes or lesions noted Neuro General: patient alert and patient oriented x3 Cranial Nerves: CN's II-XI intact bilaterally Other: gcs 15, ambulatory with steady gait, alert and oriented times Extrem Other: Left wrist with tenderness and deformity, neurovascularly intact, no tenderness to left elbow Course Vital Signs Vital signs: Vital Signs Temperature 36.6 C 11/24/21 15:44 Pulse 99 H 11/24/21 15:44 Blood Pressure 146/77 H 11/24/21 15:44 Pulse Oximetry 95 11/24/21 15:44 Temperature 36.6 C 11/24/21 15:44 Temperature Source Skin 11/24/21 15:44 Pulse 99 H 11/24/21 15:44 Respiratory Effort Non-Labored 11/24/21 16:10 Respiratory Depth Normal 11/24/21 16:10 Respiratory Pattern Normal 11/24/21 16:10 Blood Pressure 146/77 H 11/24/21 15:44 Blood Pressure Position Sitting 11/24/21 15:44 Pulse Oximetry 95 11/24/21 15:44 Oxygen Delivery Method Room Air 11/24/21 15:44 Oxygen Flow Rate 0 11/24/21 15:44 Pain Level 8 11/24/21 19:53 Lab/Test Results Lab/Test Results: Laboratory Tests Range/Units 11/24/21 11/24/21 11/24/21 18:29 18:29 19:33 WBC (4.4-10.8) 10^3/uL 6.90 RBC (3.93-5.22) 10^6/uL 4.32 Hgb (11.2-15.7) g/dL 14.0 Hct (36.0-46.0) % 41.7 MCV (80-95) fL 97 H MCH (27.0-33.0) pg 32.4 MCHC (32.0-36.0) % 33.6 RDW (11.7-14.6) % 12.7 Plt Count (130-400) 10^3/uL 261 MPV (8.0-11.0) fL 9.1 Immature Gran % 0.1 Neutrophils % 77.2 Lymphocytes % 15.1 Monocytes % 5.9 Eosinophils % 1.3 Basophils % 0.4 Nucleated RBC % (0.0-0.3) % 0.0 Absolute Neutrophils (1.2-6.7) 10^3/uL 5.32 Absolute Lymphocytes (1.2-3.4) 10^3/uL 1.04 L Absolute Monocytes (0.1-0.8) 10^3/uL 0.41 Absolute Eosinophils (0.0-0.7) 10^3/uL 0.09 Absolute Basophils (0.0-0.2) 10^3/uL 0.03 Sodium (136-145) mmol/L 143 Potassium (3.5-5.1) mmol/L 3.8 Chloride (98-107) mmol/L 105 Carbon Dioxide (21.0-32.0) mmol/L 28.0 Anion Gap (3-11) mmol/L 10.0 BUN (7-18) mg/dL 14 Creatinine (0.55-1.02) mg/dL 0.9 Estimated GFR/1.73 m2 (mL/min/1.73m2) >= 60.00 Glucose (74-106) mg/dL 101 Calcium (8.5-10.1) mg/dL 9.1 Magnesium (1.8-2.4) mg/dL 1.9 Total Bilirubin (0.2-1.0) mg/dL 0.6 AST (15-37) U/L 19 ALT (14-59) U/L 20 Alkaline Phosphatase (46-116) U/L 71 Total Protein (6.4-8.2) g/dL 7.3 Albumin (3.4-5.0) g/dL 4.0 Urine Color (Yellow) Yellow Urine Clarity (Clear) Clear Urine pH (5-8) 7.0 Ur Specific [place] (1.005-1.025) 1.020 Urine Protein (Negative) mg/dL Negative Urine Ketones (Negative) mg/dL 15 H Urine Blood (Negative) Negative Urine Nitrite (Negative) Negative Urine Bilirubin (Negative) Negative Urine Urobilinogen (Up TO 0.2) EU/dL 0.2 Ur Leukocyte Esterase (Negative) Negative Urine Glucose (Negative) mg/dL Negative PAWSS Have you Been Recently Intoxicated or Drunk Within the Last 30 days?: No Have you Ever Experienced Previous Episodes of Alcohol Withdrawal?: No Have you ever Experienced Withdrawal Seizures?: No Have you ever Experienced Delirium Tremens(DT)s?: No Have you ever undergone Alcohol Rehabilitation Treatment (i.e, inpt ot outpatient treatment programs)?: No Have you ever Experienced Blackouts?: No Have you ever Combined Alcohol with other Downers within the last 90 days?: No Have you ever Combined Alcohol with any other Substance of Abuse during the last 90 days?: No Positive Blood Alcohol level on Presentation? [PCS.BAL]: Unable to Obtain Evidence of Increased Autonomic Activity (i.e. HR>120, tremor, sweating, agitation, nausea)?: No Result: 0
== END 2021-11-24 20:54 | disposition home or self-care (01) ==
PROVIDERS: Emergency Provider Physician Assistant; PCP Family Medicine
DX: S52.502A Unspecified fracture of the lower end of left radius, initial encounter for closed fracture (principal); R51.9 Headache, unspecified; I10 Essential (primary) hypertension; R29.6 Repeated falls; G89.11 Acute pain due to trauma; W19.XXXA Unspecified fall, initial encounter
CPT/HCPCS: 29125; 80053; 93005; 99285; 70450; 71045; 72125; 73080; 73110; 81003; 83735; 85025; 93010; 99284

== ENCOUNTER 2021-12-01 14:15 | Outpatient (CLI) | payer MEDICARE, SELFPAY ==
--- NOTE | 2021-12-01 14:00 | DI.RAD_ITS ---
Exam(s) XR WRIST LT LIMITED EXAM: XR WRIST LT LIMITED CLINICAL HISTORY: follow up. TECHNIQUE: 2D digital imaging was performed. COMPARISON: CR,XR XR WRIST LT COMPLETE from 11/24/2021 FINDINGS: Two views Stable appearance of the distal radius fracture site. Chondrocalcinosis again noted in the radiocarp al joint. Ulnar styloid is intact. No carpal dislocation. IMPRESSION: Stable without significant change at the fracture site when compared to 11/24/2021. DATA REPOSITORY: RADIATION DOSE DELIVERED:
== END 2021-12-01 14:16 | disposition home or self-care (01) ==
LOC: DIORS 14:16
PROVIDERS: PCP Family Medicine; Referring Provider Family Medicine; Visit Provider Physician Assistant Surgical
DX: S62.102A Fracture of unspecified carpal bone, left wrist, initial encounter for closed fracture (principal); W19.XXXA Unspecified fall, initial encounter
CPT/HCPCS: 99214; 73100

== ENCOUNTER 2021-12-13 13:14 | Outpatient (CLI) | payer MEDICARE, SELFPAY ==
--- NOTE | 2021-12-13 13:00 | DI.RAD_ITS ---
Exam(s) XR WRIST LT LIMITED EXAM: XR WRIST LT LIMITED INDICATION: L wrist fx. COMPARISON: CR,XR XR WRIST LT COMPLETE from 11/24/2021 CR XR WRIST LT LIMITED from 12/01/2021 TECHNIQUE: 2D digital imaging was performed. Two views. FINDINGS: There has been no change in the alignment of the distal radial fracture. Increased healing since britton or exam. Chondrocalcinosis and scaphoid cysts are again noted. DATA REPOSITORY: RADIATION DOSE DELIVERED:
== END 2021-12-13 13:15 | disposition home or self-care (01) ==
LOC: DIORS 13:14
PROVIDERS: PCP Family Medicine; Referring Provider Family Medicine; Visit Provider Physician Assistant
DX: S62.102A Fracture of unspecified carpal bone, left wrist, initial encounter for closed fracture (principal); X58.XXXA Exposure to other specified factors, initial encounter
CPT/HCPCS: 99213; 73100

== ENCOUNTER → 2022-01-10 02:29 | Outpatient (CLI) | payer MEDICARE, SELFPAY ==
--- NOTE | 2022-01-10 06:30 | DI.MRI_ITS ---
Exam(s) MR CERVICAL SPINE WO EXAM: MR CERVICAL SPINE WO CLINICAL HISTORY: cervical lesion,benign neoplasm,d32.9 TECHNIQUE: Multiplanar multisequence MRI of the cervical spine was performed without intravenous con trast. COMPARISON: CT CT HEAD CERVICAL SPINE WO from 11/24/2021 FINDINGS: BONES: Vertebral body heights are maintained. Intervertebral disc spaces are normal. Alignment is nor mal. Bone marrow signal intensity is within normal limits. CERVICAL CORD: Craniovertebral junction is unremarkable. The cervical cord is normal size and signal intensity. SOFT TISSUES: The calcifications seen on the CT scan from 11/24/2021 corresponds to an area of decreas ed signal intensity on both the T1 and T2 weighted images at the C6 level. It is extradural lying be tween the spinous processes of C6 and C7. There is no associated soft tissue mass. It causes no comp ression of the spinal cord. It is not appear to extend into the thecal sac. C2-3: No disc herniation or bulge is identified. No significant central spinal canal or neural forami nal stenosis. C3-4: No disc herniation or bulge is identified. No significant central spinal canal or neural forami nal stenosis C4-5: No disc herniation or bulge is identified. No significant central spinal canal or neural forami nal stenosis C5-6: There is mild prominence of the osteophyte disc complex. No significant central spinal canal o r neural foraminal stenosis C6-7: No disc herniation or bulge is identified. No significant central spinal canal or neural forami nal stenosis C7-T1: No disc herniation or bulge is identified. No significant central spinal canal or neural triny inal stenosis IMPRESSION: 1. Mild cervical spondylosis. 2. T1 and T2 hypointense ovoid area at the T6 level. It is extradural between the C6 and C7 spinous processes. This appears to represent a benign lesion. This may represent a benign ligamentous calci fication. There is no associated soft tissue mass. There is no evidence of significant cord behzad selina or significant central spinal canal stenosis as result of this calcification. DATA REPOSITORY:
== END ==
PROVIDERS: PCP Family Medicine; Visit Provider Family Medicine
DX: M47.816 Spondylosis without myelopathy or radiculopathy, lumbar region
CPT/HCPCS: 72141

== ENCOUNTER 2022-01-17 10:27 | Outpatient (CLI) | payer MEDICARE, SELFPAY ==
--- NOTE | 2022-01-17 10:00 | DI.RAD_ITS ---
Exam(s) XR WRIST LT LIMITED EXAM: XR WRIST LT LIMITED CLINICAL HISTORY: LEFT WRIST FX F/U. TECHNIQUE: 2D digital imaging was performed of the left wrist. Two images were obtained. PA and la teral views were obtained. COMPARISON: CR XR WRIST LT LIMITED from 12/13/2021 FINDINGS: BONES: There has been continued healing of the distal radial fracture. No change in alignment of the fracture is noted. No bony destructive lesion is seen. JOINTS: The carpal bones are normally aligned. SOFT TISSUE: Normal. IMPRESSION: Continued healing of the distal radial fracture. DATA REPOSITORY: RADIATION DOSE DELIVERED:
== END 2022-01-17 10:28 | disposition home or self-care (01) ==
LOC: DIORS 10:27
PROVIDERS: PCP Family Medicine; Referring Provider Family Medicine; Visit Provider Student in an Organized Health Care Education/Training Program
DX: S69.92XD Unspecified injury of left wrist, hand and finger(s), subsequent encounter (principal); X58.XXXD Exposure to other specified factors, subsequent encounter
CPT/HCPCS: 99213; 73100

== ENCOUNTER 2022-03-22 01:17 | Outpatient (CLI) | payer MEDICARE, SELFPAY ==
--- NOTE | 2022-03-22 07:00 | DI.RAD_ITS ---
Exam(s) XR CHEST 2V PA LATERAL EXAM: XR CHEST 2V PA LATERAL CLINICAL HISTORY: Cough and SOB not resolving,R06.02,R05.9. TECHNIQUE: 2D digital imaging was performed. COMPARISON: CR,XR XR CHEST 1V IN DI DEPT from 11/24/2021 FINDINGS: 2 views: Heart size is normal. The mediastinum is not widened. Right lung is clear. There is a 17 x 8 millimeter oval noncalcified nodular density projected over t he anterior aspect of the left 1st rib. This was not evident on the prior study. Difficult to deter mine if this is a noncalcified lung nodule or just related to the anterior aspect of the left 1st rib . No other focal lung findings. No pleural effusions. IMPRESSION: 17 x 18 millimeter left upper lobe region density which is more evident than on prior chest x-ray. T here is possibly that this just represents the anterior aspect of the left 1st rib. Recommend additi onal imaging starting with lordotic AP view of the upper lung jim. This will help differentiate. DATA REPOSITORY: RADIATION DOSE DELIVERED:
== END 2022-03-22 01:37 ==
LOC: DI 01:18
PROVIDERS: PCP Family Medicine; Visit Provider Nurse Practitioner Family
DX: R05.8 Other specified cough (principal); R06.02 Shortness of breath; R91.8 Other nonspecific abnormal finding of lung field
CPT/HCPCS: 71046

== ENCOUNTER → 2022-11-06 14:57 | Outpatient (BNVA) | payer MEDICARE, SELFPAY | PROVIDERS: PCP Family Medicine; Referring Provider Family Medicine; Visit Provider Student in an Organized Health Care Education/Training Program | DX: M65.341 Trigger finger, right ring finger (principal); S63.654A Sprain of metacarpophalangeal joint of right ring finger, initial encounter; X58.XXXA Exposure to other specified factors, initial encounter | CPT/HCPCS: 99213 ==

== ENCOUNTER → 2022-11-24 00:35 | Outpatient (CLI) | payer MEDICARE, SELFPAY ==
--- NOTE | 2022-11-24 06:45 | DI.MRI_ITS ---
Exam(s) MR UPPER EXTREMITY RT WO EXAM: MR UPPER EXTREMITY RT WO CLINICAL HISTORY: PAIN,SAGITTAL BAND RUPTURE METACARPAL JOINT,S63.320W TECHNIQUE: Multiplanar multisequence MRI was performed without intravenous contrast. COMPARISON: CR XR WRIST LT LIMITED from 12/13/2021 FINDINGS: BONES/JOINTS: There are arthritic changes seen at the 1st CMC joint in the articulation of the scapho id and the quadrangular bones. There also arthritic changes seen in the interphalangeal joints of th e fingers particularly the DIP joints of the 2nd and 3rd fingers and the interphalangeal joint of the thumb. Degenerative changes are also seen at the distal radial ulnar joint. There is a small effus ion at the radiocarpal joint with synovial thickening. There is advanced arthritic changes within th e angle deformity at the DIP joint of the index finger with thickening of the collateral ligaments an d nestor. There is no evidence of a fracture in the visualized hand. MUSCULOTENDINOUS STRUCTURES: The muscles show normal signal and size. No muscular fatty atrophy. The re is a small amount of fluid seen around the flexor tendons of the index, middle and ring fingers kay ggesting tenosynovitis. There is also small amount of fluid seen around tendons in the extensor comp artments suggesting tenosynovitis. SOFT TISSUES: Unremarkable. OTHER FINDINGS: There does appear to be thickening of the pole ease seen at the MCP joints of the ind ex and middle fingers and also at the PIP joint of the index and middle fingers. There is no evidenc e of a collateral ligament tear. IMPRESSION: 1. Thickening of the pole ease in the index and middle fingers which can be seen with trigger finger. 2. Tenosynovitis involving flexor tendons in the index, middle and ring fingers and tendons in the ex tensor compartments of the wrist. 3. 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 DATA REPOSITORY:
--- NOTE | 2022-11-25 23:51 | DI.VRAD_ITS ---
PROCEDURE INFORMATION: Exam: MR Right Upper Extremity Other Than Joint Without Contrast; Fingers Exam date and time: 11/24/2022 11:14 AM Age: 77 years old Clinical indication: Trigger finger within the index and middle fingers. TECHNIQUE: Imaging protocol: Magnetic resonance imaging of the right upper extremity without contrast. Exam focused on the fingers. COMPARISON: No relevant prior studies available. FINDINGS: Bones/joints: Advanced arthritic changes within angle deformity is seen within the DIP joint of the index finger, with thickening of the A5 nestor and collateral ligaments at this level. No evidence for acute fracture. Moderate arthritic changes within the triscaphe and thumb CMC joints with [id number] arthritic change within the MCP joint of the thumb. Arthritic changes are also seen throughout the radiocarpal joint. No evidence for acute fracture. Moderate to advanced arthritic changes within the distal radioulnar joint with a small joint effusion. A small joint effusion is also seen within the radiocarpal joint with areas of synovial thickening. Collateral ligaments of digits: Unremarkable. No evidence of tear. Pulleys: Slight thickening is seen within the A1 pulleys of the index and middle fingers as seen at the level of the MCP joints, axial T1 weighted images 22-24. This can be seen with trigger finger. Additional slight thickening is also seen within the A3 pulleys of the index and middle fingers, as seen on axial T1 weighted image 33. Flexor compartment tendons: No evidence for an acute tear or rupture. Mild tenosynovitis throughout the index, middle and ring flexor tendons. Extensor compartment tendons: No acute tear or rupture. Mild tenosynovitis within the 2nd, 3rd and 6th dorsal compartments with a probable low-grade longitudinal split tear within the extensor carpi ulnaris tendon. Soft tissues: No focal fluid collection or abscess. IMPRESSION: 1. Subtle thickening within the A1 pulleys of the index and middle fingers at the level of the MCP joints, which can be seen with trigger finger. Additionally, slight thickening is also seen within the A3 pulleys of the index and middle fingers as well. 2. Mild tenosynovitis throughout the flexor tendons of the index, middle and ring fingers without tear. 3. Mild tenosynovitis throughout the 2nd, 3rd and 6th dorsal compartments with a probable low-grade longitudinal split tear within the extensor carpi ulnaris tendon. 4. Advanced arthritic changes within angle deformity within the DIP joint of the index finger which may be chronic, posttraumatic. Additional arthritic changes throughout the remaining wrist and hand, described above. Dictated and Authenticated by: Lynne Abreu MD. Ordering:MELISSA Vargas MD
== END ==
PROVIDERS: PCP Family Medicine; Visit Provider Student in an Organized Health Care Education/Training Program
DX: M19.131 Post-traumatic osteoarthritis, right wrist (principal); M65.841 Other synovitis and tenosynovitis, right hand
CPT/HCPCS: 73218

== ENCOUNTER 2023-05-03 12:57 | Outpatient (REF) | payer MEDICARE, SELFPAY | END 2023-05-03 12:58 | disposition home or self-care (01) | LOC: NCHCN 12:57 | PROVIDERS: PCP Family Medicine; Visit Provider Nurse Practitioner Family | DX: R35.0 Frequency of micturition (principal); R50.9 Fever, unspecified; R82.998 Other abnormal findings in urine; N89.8 Other specified noninflammatory disorders of vagina | CPT/HCPCS: 87480; 87510; 87660 ==

== ENCOUNTER 2023-05-12 10:25 | Outpatient (REF) | payer MEDICARE, SELFPAY ==
[2023-05-12 16:02] LABS: Bilirubin Negative (Negative); Blood Negative (Negative); Clarity Clear (Clear); Glucose Negative (Negative); Ketones Negative (Negative); Leukocyte Esterase Negative (Negative); Nitrite Negative (Negative); Specific Gravity 1.015 (1.005-1.025); pH 8.5 (5-8)
== END 2023-05-12 10:26 | disposition home or self-care (01) ==
LOC: LBN 10:25
PROVIDERS: PCP Family Medicine; Visit Provider Nurse Practitioner Family
DX: R35.0 Frequency of micturition (principal); R82.998 Other abnormal findings in urine; R50.9 Fever, unspecified
CPT/HCPCS: 81003

== ENCOUNTER 2023-06-28 05:15 | Outpatient (CLI) | payer MEDICARE, SELFPAY ==
[2023-06-28 13:53] LABS: Abs Immature Grans 0.01 10^3/uL (0.0-0.06); Absolute Basophil Count 0.04 10^3/uL (0.0-0.2); Absolute Eosinophil Count 0.15 10^3/uL (0.0-0.7); Absolute Lymphocyte Count 1.07 10^3/uL (1.2-3.4); Absolute Monocyte Count 0.36 10^3/uL (0.1-0.8); Absolute Neutrophil Count 3.43 10^3/uL (1.2-6.7); Basophils % 0.8; HCT 46.5 % (36.0-46.0); Immature Grans % 0.2; Lymphocytes % 21.1; MCH 31.9 pg (27.0-33.0); MCHC 32.3 % (32.0-36.0); MCV 99 fL (80-95); MPV 8.9 fL (8.0-11.0); Monocytes % 7.1; Neutrophils % 67.8; Platelet Count 271 10^3/uL (130-400); RDW 13.8 % (11.7-14.6); RDW-SD 50.9 fL; WBC 5.06 10^3/uL (4.4-10.8)
[2023-06-28 14:19] LABS: ALT 21 U/L (14-59); AST 19 U/L (15-37); Albumin 4.3 g/dL (3.4-5.0); Alkaline Phosphatase 65 U/L (46-116); Anion Gap 11.7 mmol/L (3-11); BUN 10 mg/dL (7-18); Bilirubin, Total 0.6 mg/dL (0.2-1.0); CO2 28.3 mmol/L (21.0-32.0); CREATININE 0.9 mg/dL (0.55-1.02); Calcium 9.4 mg/dL (8.5-10.1); Chloride 104 mmol/L (98-107); Estimated GFR 66.67 (mL/min/1.73m2); Glucose 101 mg/dL (74-106); Potassium 4.5 mmol/L (3.5-5.1); Sodium 144 mmol/L (136-145); Total Protein 7.7 g/dL (6.4-8.2)
== END 2023-06-28 05:16 | disposition home or self-care (01) ==
LOC: LBO 05:15
PROVIDERS: Nurse Practitioner Family; PCP Family Medicine; Visit Provider Family Medicine
DX: R35.0 Frequency of micturition (principal); R50.9 Fever, unspecified
CPT/HCPCS: 36415; 80053; 85025

== ENCOUNTER 2023-07-31 10:27 | Outpatient (CLI) | payer MEDICARE, SELFPAY ==
[2023-07-31 12:35] LABS: TSH (W/Ref FT4) 0.75 uIU/mL (0.36-3.74)
== END 2023-07-31 10:28 | disposition home or self-care (01) ==
LOC: LOS 10:27
PROVIDERS: PCP Family Medicine; Referring Provider Family Medicine; Visit Provider Family Medicine
DX: E03.9 Hypothyroidism, unspecified (principal)
CPT/HCPCS: 36415; 84443

== ENCOUNTER 2023-12-21 15:30 | Outpatient (REF) | payer MEDICARE, SELFPAY | END 2023-12-21 15:31 | disposition home or self-care (01) | LOC: LBN 15:30 | PROVIDERS: PCP Family Medicine; Visit Provider Physician Assistant | DX: N89.8 Other specified noninflammatory disorders of vagina (principal); N39.0 Urinary tract infection, site not specified; S59.901A Unspecified injury of right elbow, initial encounter | CPT/HCPCS: 87077; 87086; 87186; 87480; 87510; 87660 ==

== ENCOUNTER 2024-01-18 00:26 | Outpatient (CLI) | payer MEDICARE, SELFPAY ==
--- NOTE | 2024-01-18 07:00 | DI.MRI_ITS ---
Exam(s) MR UPPER JOINT RT WO EXAM: MR UPPER JOINT RT WO CLINICAL HISTORY: rt shoulder pain, ? RC tear,m25.511. TECHNIQUE: Multiplanar multisequence MRI was performed. COMPARISON: CR,DX XR SHOULDER RIGHT (GENERIC) from 10/25/2023 RF XR FLUORO GUIDED JOINT INJECTION MEDIUM RIGHT from 10/26/2023 FINDINGS: The examination is limited due to patient motion artifact. BONES: There is no fracture or contusion pattern. Mild subcutaneous edema is seen in the posterior he ad of the humerus and the inferior glenoid. JOINTS: The acromioclavicular joint is normal. The glenohumeral joint is normal. TENDONS: Supraspinatus: There is a complete tear of the supraspinatus tendon with retraction to the level of t he glenohumeral joint. Infraspinatus: There is tendinosis of the infraspinatus tendon without evidence of a tear. Subscapularis: There is tendinosis of the subscapularis tendon without evidence of a tear. Teres Minor: Unremarkable. Biceps and [place]: Unremarkable. MUSCLES: There is mild fatty atrophy of the supraspinatus and subscapularis muscles. GLENOID LABRUM: Unremarkable on this noncontrast examination. SOFT TISSUES: Unremarkable. LIGAMENTS: Unremarkable. OTHER: There is fluid in the subacromial subdeltoid bursa consistent with a rotator cuff tear. IMPRESSION: 1. Complete tear of the supraspinatus tendon with retraction to the level of the glenohumeral joint. 2. Tendinosis of the infraspinatus and subscapularis tendons without evidence of a tear. 3. Mild fatty atrophy of the supraspinatus and subscapularis muscles. 4. Fluid in the subacromial subdeltoid bursa consistent with a rotator cuff tear. DATA REPOSITORY:
== END 2024-01-18 00:46 ==
LOC: DI 00:26
PROVIDERS: PCP Family Medicine; Visit Provider Family Medicine
DX: S46.011A Strain of muscle(s) and tendon(s) of the rotator cuff of right shoulder, initial encounter (principal); X58.XXXA Exposure to other specified factors, initial encounter
CPT/HCPCS: 73221

== ENCOUNTER 2024-04-17 23:00 | Outpatient (REF) | payer MEDICARE, SELFPAY ==
[2024-04-17 15:58] LABS: Bilirubin Negative (Negative); Blood Negative (Negative); Clarity Clear (Clear); Glucose Negative (Negative); Ketones Negative (Negative); Leukocyte Esterase Negative (Negative); Nitrite Negative (Negative); Urobilinogen 0.2 mg/dL (Up to 0.2)
== END 2024-04-17 23:01 | disposition home or self-care (01) ==
LOC: LBN 23:00
PROVIDERS: PCP Family Medicine; Visit Provider Family Medicine
DX: R82.998 Other abnormal findings in urine (principal); R53.81 Other malaise; R51.9 Headache, unspecified; R39.15 Urgency of urination
CPT/HCPCS: 81003

== ENCOUNTER 2024-07-15 09:19 | Emergency (ER) | payer MEDICARE, SELFPAY ==
[2024-07-15] VITALS (41 sets, daily range): BP systolic 98–160; BP diastolic 62–110; PULSE 64–85; RESP 11–22; TEMP 36.8; O2SAT 92–100
--- NOTE | 2024-07-15 09:22 | ED.GENADUL_ITS ---
Discharge Plan Disposition Patient Disposition: Home Discharge Details Clinical Impression: Left rib fracture, Acute UTI Primary Care Provider: Crow Darnell ED Provider: Jeffry Martinez Cora Meds and New Rx's Prescriptions: New nitrofurantoin macrocrystal 100 mg capsule 100 mg PO BID 5 Days Qty: 10 0RF Rx Instructions: must administer with a meal/food Continued melatonin 3 mg capsule 3 mg PO HS PRN travoprost [Travatan Z] 0.004 % drops 1 drp OU QHS Qty: 1 4RF Rx Instructions: Issue one bottle. Restasis MultiDose 0.05 % drops 1 drp OP Q12H Qty: 5.5 2RF pantoprazole 40 mg tablet,delayed release (DR/EC) 40 mg PO BID Qty: 180 3RF cyanocobalamin (vitamin B-12) 1,000 mcg/mL solution 1,000 mcg IM 2x/mo Qty: 6 11RF Rx Instructions: 1 ML twice a month loratadine 10 mg tablet 10 mg PO DAILY PRN (Reason: allergy symptoms) Qty: 30 2RF terbinafine HCl 250 mg tablet 250 mg PO DAILY Qty: 7 3RF Rx Instructions: take daily for one week every 3 months terbinafine HCl 250 mg tablet 250 mg PO DAILY Qty: 7 3RF Rx Instructions: take daily for one week for each of next 4 months, then start maintenance therapy famotidine 20 mg tablet 20 mg PO DAILY Qty: 90 3RF quetiapine 50 mg tablet 50 mg PO BID Qty: 180 3RF cholecalciferol (vitamin D3) 3,000 UNIT tablet 6,000 unit PO DAILY Qty: 100 Vitamin C 1,000 MG tablet extended release 1,000 mg PO DAILY magnesium oxide 400 mg magnesium capsule 500 mg PO DAILY (DME) BD Eclipse Luer-Sterling 3 mL 25 x 5/8 syringe 1 syrg IM TWICE MONTHLY Qty: 6 4RF Rx Instructions: 3 ML SYRINGE WITH 25G X 1 NEEDLE FOR VIT B12 INJECTIONS topiramate 50 mg tablet See Rx Instructions PO BID Qty: 180 4RF Dose Instruction: 100 mgs in morning and 50 mgs evening PO BID; 100 mg (2 tabs) QAM, 50 mg (1 tab) QPM PO BID; Rx Instructions: 100 mgs in morning and 50 mgs evening PO BID; 100 mg (2 tabs) QAM, 50 mg (1 tab) QPM PO BID; mirtazapine 30 mg tablet See Rx Instructions .ROUTE .COMPLEX Qty: 60 5RF Dose Instruction: TAKE 1 TABLET BY MOUTH AT BEDTIME Rx Instructions: TAKE 1 TABLET BY MOUTH AT BEDTIME gabapentin 600 mg tablet 300 - 900 mg PO BID Qty: 180 1RF Rx Instructions: 300 mg in AM; 900 mg PM (per Psych) clonazepam 1 mg tablet 1 mg PO BID MDD 3 tabs Qty: 65 2RF Rx Instructions: 1 tab twice a day and an additional tablet prn for extreme anxiety 65 should last at least 30 days duloxetine 60 mg capsule,delayed release(DR/EC) 60 mg PO DAILY Qty: 90 3RF Discharge Instructions Additional Instructions: You were seen in the emergency department for your bruising. You are found to have rib fracture on the left. Please use your incentive spirometry device every hour while you are awake. Please ensure that you are able to pull at least 2000 cc. If you develop fevers or or passout please return to the emergency department. Your urinalysis was also concerning for the possibility of urinary tract infection for which you are receiving antibiotics that you should take as directed. If you develop fevers chills cannot eat or drink as result of nausea or vomiting or if you have any other concerns please return to the emergency department. Please touch base with your primary care provider concerning your medications as they may have contributed to your fall. Specifically your clonazepam, gabapentin, melatonin, mirtazapine, and quetiapine can all make you quite sleepy. You may be receiving side effects from these doses. For your pain please take medications as follows: 1. Take acetaminophen (Tylenol), 1,000 mg (two 500 mg tabs) every 6 hours Discharge Data Discharge Date/Time-TO BE ENTERED AT DEPARTURE: 07/15/24 14:19 HPI General Date/Time Provider Initiated Documentation: 07/15/24 09:22 . HPI Narrative: MDM Primary survey intact. Reassuring shock index. On secondary survey patient has midline cervical spinal tenderness concerning for the possibility of fracture given trauma for which patient will undergo CT scan. No pain out of proportion to suggest necrotizing soft tissue infection. Patient is nauseous this raise the possibility of intra-abdominal injury. Given low blood pressure will send type screen. Patient has anaphylaxis to contrast so we will defer IV contrast. Patient is on a number of sedating medications including mirtazapine clonazepam and melatonin quetiapine. Given her bruising it seems likely that she fell. I anticipate she will require hospitalization unless she is able to pass an ambulatory trial. She has intermittently been dizzy but has no focal neurological deficits to suggest CVA as I did not feel that she required an MRI. No tonic-clonic activity to suggest seizure. No fevers to suggest meningitis. Not altered to suggest encephalitis. Soft nontender abdomen some not suspicious for intra-abdominal infection. Patient is not an alcoholic to suggest increased risk for withdrawal. Given left-sided jaw pain will complete maxillofacial cuts on CT. If patient has unremarkable imaging she will require physical therapy evaluation. 11:05 AM Basic metabolic panel showing mild SILVESTRE. No acute electrolyte abnormalities. No anion gap. Normal bicarbonate. CK within normal limits. CBC lacks anemia thrombocytopenia and leukocytosis. Reassuring initial troponin. ECG with no prolonged QTc and no ischemia. It is certainly possible that the patient's clonazepam has contributed to her fall. She is certainly a candidate for deprescribing given her age and her weight. 1:40 PM Urinalysis showing trace leuk esterase but nitrite negative. Microscopy with many bacteria and WBCs. Given dysuria will cover with nitrofurantoin given allergy to sulfa and cephalexin while awaiting reflex culture results. Patient was able to pull 2000 cc on IS. Given the duration of time since her fall and her single rib fracture with impressive performance on IS I do not feel that the patient required hospitalization assuming she is able to pass a p.o. challenge. 3:11 PM I spoke with Dr. Darnell the patient's primary care provider. Patient worked with physical therapy who cleared the patient for discharge. I requested that he help follow-up with the patient as a belief that she may have moved beyond precontemplation towards excepting that some level of deprescribing some of her medications would improve her safety at home. Dr. Darnell will help to arrange outpatient follow-up. Prior to discharge I reassessed her mass. She had no percussive tenderness to suggest periapical abscess. She had no signs of any mandibular or maxillary fractures on CT scan. Diagnostic interpretations performed by me: Per my independent interpretation chest x-ray shows: Per my independent interpretation EKG shows: Intervals within normal limits. Normal sinus rhythm. No acute injury pattern. ]Medications: Acetaminophen Social determinants of health affecting disposition: Lives alone Management discussed with: Physical therapy & primary care Treatment/interventions considered: N/A Response to therapies provided: Improved symptoms in the ED HPI This is a 79-year-old female arrived emergency department via private vehicle in the setting of multiple complaints. Patient notes that she cannot recall falling but that she woke up with bruising on the left side of her jaw and had painful jaw opening. She also noticed a bruise on the left side. She has had pain in her left ribs. She has intermittently had some dizziness and some weakness. She stayed in bed all day 3 days ago. She felt warm but did not document a fever. She has been ambulating with a cane. She endorses nausea. Exam General: Well-appearing in no acute distress speaking in complete sentences. Head: Normocephalic, atraumatic. Eye: Extraocular eye movements intact. No conjunctival injection. No scleral icterus. Ear, nose, mouth, throat: Grossly normal inspection. Normal voice, handling secretions normally. Neck: Trachea midline. Midline cervical spinal tenderness Cardiovascular: Well-perfused distal extremities. Regular rate and rhythm. Respiratory: Nonlabored respiration. Clear lungs bilaterally. Chest wall: Left chest wall tenderness. No flail segments. Back: No midline thoracic nor lumbar spinal tenderness. No step-offs. No deformities. Gastrointestinal: Nondistended abdomen. Musculoskeletal: No edema. Moving all 4 extremities spontaneously. Left proximal humerus tenderness. Patient is able to touch left hand to contralateral right shoulder. Right upper extremity nontender. Bilateral hands warm well-perfused with intact sensation and motor function. Patient has bruising to the left thigh. Bilateral lower extremities with full range of motion. 5 out of 5 strength dorsi and plantar flexion. Pelvis stable. Skin: Normal for age and race, grossly normal temperature and turgor. No acute rash. Neurologic: Alert and appropriate, no apparent acute deficits. GCS 15. Psychiatric: Mood and manner are appropriate. Grooming and personal hygiene are appropriate. Related Data Home Medications ?Medication ?Instructions ?Recorded ?Confirmed cholecalciferol (vitamin D3) 75 6,000 unit PO DAILY #100 tab-caps 04/09/14 07/15/24 mcg (3,000 unit) tablet ascorbic acid (vitamin C) 1,000 mg 1,000 mg PO DAILY 08/02/16 07/15/24 tablet,extended release (Vitamin C ER) magnesium oxide 500 mg PO DAILY 09/22/19 07/15/24 melatonin 3 mg capsule 3 mg PO HS PRN 05/07/20 07/15/24 cyclosporine 0.05 % eye drops 1 drp ophthalmic (eye) Q12H #5.5 mL 12/14/21 07/15/24 (Restasis MultiDose) travoprost 0.004 % eye drops 1 drp OU QHS #1 oz 12/14/21 07/15/24 (Travatan Z) loratadine 10 mg tablet 10 mg PO DAILY PRN allergy 12/27/22 07/15/24 symptoms #30 tabs syringe with needle 3 mL 25 x 5/8 #6 SYRGS 01/22/23 07/15/24 (BD Eclipse Luer-Sterling) cyanocobalamin (vitamin B-12) 1,000 mcg IM 2x/mo #6 vials 07/31/23 07/15/24 1,000 mcg/mL injection solution pantoprazole 40 mg tablet,delayed 40 mg PO BID #180 tabs 07/31/23 07/15/24 release topiramate 50 mg tablet See Rx Instructions PO BID #180 08/20/23 07/15/24 tabs mirtazapine 30 mg tablet See Rx Instructions .Route 09/19/23 07/15/24 .COMPLEX #60 tabs gabapentin 600 mg tablet 300 - 900 mg (0.5 - 1.5 x 600 mg) 03/28/24 07/15/24 PO BID #180 tabs clonazepam 1 mg tablet 1 mg PO BID #65 tabs 04/26/24 07/15/24 duloxetine 60 mg capsule,delayed 60 mg PO DAILY #90 caps 04/28/24 07/15/24 release famotidine 20 mg tablet 20 mg PO DAILY #90 tabs 05/13/24 07/15/24 quetiapine 50 mg tablet 50 mg PO BID #180 tabs 05/13/24 07/15/24 terbinafine HCl 250 mg tablet 250 mg PO DAILY #7 tabs 05/13/24 07/15/24 terbinafine HCl 250 mg tablet 250 mg PO DAILY #7 tabs 05/13/24 07/15/24 nitrofurantoin macrocrystal 100 mg 100 mg PO BID 5 days #10 caps 07/15/24 capsule Previous Rx's ?Medication ?Instructions ?Recorded cyclosporine 0.05 % eye drops 1 drp ophthalmic (eye) Q12H #5.5 mL 12/14/21 (Restasis MultiDose) travoprost 0.004 % eye drops 1 drp OU QHS #1 oz 12/14/21 (Travatan Z) loratadine 10 mg tablet 10 mg PO DAILY PRN allergy 12/27/22 symptoms #30 tabs syringe with needle 3 mL 25 x 5/8 #6 SYRGS 01/22/23 (BD Eclipse Luer-Sterling) cyanocobalamin (vitamin B-12) 1,000 mcg IM 2x/mo #6 vials 07/31/23 1,000 mcg/mL injection solution pantoprazole 40 mg tablet,delayed 40 mg PO BID #180 tabs 07/31/23 release topiramate 50 mg tablet See Rx Instructions PO BID #180 08/20/23 tabs mirtazapine 30 mg tablet See Rx Instructions .Route 09/19/23 .COMPLEX #60 tabs gabapentin 600 mg tablet 300 - 900 mg (0.5 - 1.5 x 600 mg) 03/28/24 PO BID #180 tabs clonazepam 1 mg tablet 1 mg PO BID #65 tabs 04/26/24 duloxetine 60 mg capsule,delayed 60 mg PO DAILY #90 caps 04/28/24 release famotidine 20 mg tablet 20 mg PO DAILY #90 tabs 05/13/24 quetiapine 50 mg tablet 50 mg PO BID #180 tabs 05/13/24 terbinafine HCl 250 mg tablet 250 mg PO DAILY #7 tabs 05/13/24 terbinafine HCl 250 mg tablet 250 mg PO DAILY #7 tabs 05/13/24 nitrofurantoin macrocrystal 100 mg 100 mg PO BID 5 days #10 caps 07/15/24 capsule Allergies Allergy/AdvReac Type Severity Reaction Status Date / Time ceftriaxone (From Rocephin) Allergy Severe RASH, Verified 07/15/24 09:29 REDNESS, SWELLING, cephalexin (From Keflex) Allergy Severe RASH, Verified 07/15/24 09:29 REDNESS, SWELLING, NAUSEA Iodinated Contrast Media Allergy Severe ANAPHYLAXIS Verified 07/15/24 09:29 (Iodinated Contrast- Oral and IV Dye) Penicillins Allergy Severe RASH, Verified 07/15/24 09:29 REDNESS, SWELLING wool Allergy Intermediate Itching Verified 07/15/24 09:29 amoxicillin trihydrate (From Allergy Mild SKIN RASH Verified 07/15/24 09:29 Augmentin) cimetidine Allergy Unknown Unknown Verified 07/15/24 09:29 Sulfa (Sulfonamide Allergy Unknown UNSURE Verified 07/15/24 09:29 Antibiotics) clindamycin Allergy REDNESS, Verified 07/15/24 09:29 RASH, SWELLING cyclobenzaprine HCl (From AdvReac Severe PVC'S Verified 07/15/24 09:29 Flexeril) escitalopram oxalate (From AdvReac Intermediate Parkinsonian Verified 07/15/24 09:29 Lexapro) symtoms carbidopa (From Sinemet) AdvReac Mild LOOSES Verified 07/15/24 09:29 CONTROL levodopa (From Sinemet) AdvReac Mild LOOSES Verified 07/15/24 09:29 CONTROL lisinopril AdvReac Mild COUGH Verified 07/15/24 09:29 fentanyl AdvReac Unknown Unknown Verified 07/15/24 09:29 [employer] laundry Allergy Intermediate Itching Uncoded 07/15/24 09:29 detergent Sheer strip band-aid Allergy Intermediate Rash Uncoded 07/15/24 09:29 General SARAH: 3 Medical Decision Making Quality:SDOH Health Related Social Needs: No Data to Display PFSH All Active Problems (Updated 07/15/24 @ 13:43 by Jeffry Martinez MD) Acute UTI (Acute) Left rib fracture (Acute) Facial trauma (Acute) Status post reverse total arthroplasty of right shoulder (Acute) Tinea pedis (Acute) Onychomycosis (Acute) Memory impairment (Acute) Falls (Acute) Shoulder pain, right (Acute) Trigger ring finger (Acute) Urinary urgency (Acute) Chronic pain (Chronic) Sagittal band rupture at metacarpophalangeal joint (Acute) Trigger finger (Acute) Trigger finger, right ring finger (Acute) Glaucoma, left eye (Acute) Left cataract (Acute) Bilateral sensorineural hearing loss (Acute) Left wrist injury (Acute) Head injury, closed, with LOC of unknown duration (Acute) Fall (Acute) Skin lesions, generalized (Acute) Toe pain (Acute) Chronic cough (Acute) Fatigue (Acute) Head trauma (Acute) Lumbar radicular syndrome (Acute) Chronic insomnia (Acute) Anxiety (Acute) stable WOODS (dyspnea on exertion) (Acute) Weight gain (Acute) GERD (gastroesophageal reflux disease) (Acute 09/25/12) with dysphagia Radiculopathy (Acute) Xerodermia (Acute) Seborrheic keratosis (Acute) Cellulitis, face (Acute) Leg pain, left (Acute) Foot pain, left (Acute) Bipolar disorder (Acute) Periprosthetic fracture around internal prosthetic left hip joint, sequela (Acute) Closed hip fracture requiring operative repair (Acute) Status post left hip replacement (Acute) Hip pain, left (Chronic) Anorexia nervosa (Acute) 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 Nondisplaced fracture of femoral condyle (Acute) Dr. Duke is taking care of this. Vitamin D deficiency (Acute 04/08/14) Vitamin B 12 deficiency (Acute 02/03/14) Vaginal irritation (Acute 08/23/15) Right foot pain (Acute 09/05/13) h/o ORIF 3rd metatarsal fx persistent pain despite repeat surgery Malignant neoplasm of skin (Acute) basal cell ca on face Irritable bowel syndrome (Acute 10/06/14) stable Urinary, incontinence, stress female (Acute 09/26/12) Fatigue (Acute 10/06/14) Elevated fasting glucose (Acute 06/07/16) Accidental injury (Acute 02/02/16) Abnormal weight loss (Acute 12/03/12) h/o anorexia Abnormal vision (Acute 01/09/13) vision loss, unclear etiology Medical History Overactive bladder Optic neuropathy Notalgia paresthetica Hypercholesterolemia Health maintenance examination Dizziness History of IBS Tardive dyskinesia This was of 2 years duration and related to lexapro use. Has been stable. Returned only once following a decrease in topamax Sciatica (09/26/12) left-seen at [facility]; 2008-right Generalized osteoarthrosis right knee-surgery; right hip-THR right; DJD L1-2; Mri of L-S spine 01/02- neg. Essential hypertension (02/17/13) stable Depressive disorder (09/26/12) severe depression; suicide attempts x 3; multiple hospitalizations h/o anorexia PSYCHIATRIST 07/2017 DR. MOAN PINEDA [address] [id number] [address] Alcohol abuse (06/07/16) has had no ETOH x 1 week, does not plan to drink prior to surgery Surgical History History of left hip replacement H/O discectomy foot surgery 10/09 right [facility] 08/10 RIGHT FOOT RECONSTRUCTION [facility] [place] Replacement of total knee joint (~12/2000) right Total replacement of hip (~2006) right Fracture, Closed Treatment 11/04-COMPLEX FRACTURE TIBIAL PLATEAU LEFT KNEE 2008-COMPLEX FRACTURE RIGHT WRIST Appendectomy (~2004) Family History Mother Myasthenia gravis Macular degeneration Father Personal history of malignant neoplasm Prostate, skin Stroke Sister Personal history of malignant neoplasm Breast lumps Brother Personal history of malignant neoplasm Prostate Grandfather Personal history of malignant neoplasm Throat Grandfather Essential hypertension Personal history of malignant neoplasm Hyperlipidemia Grandmother Personal history of malignant neoplasm Throat Grandmother Essential hypertension Heart disease Stroke Social History Smoking/Tobacco Use Status: Never Smoking risk assessment performed?: Yes Alcohol Intake: current Alcohol Intake frequency: a few times a week Alcohol type: wine Drug use: Never Substance use type: does not use Household members: none Housing: house Current gender identity: female What type of physical activity do you participate in: walking, resistance t raining and running Do you feel safe at home: Yes Do you feel safe in your relationship?: Yes
--- NOTE | 2024-07-15 09:45 | DI.RAD_ITS ---
Exam(s) XR SHOULDER LT COMPLETE 2+V XR HUMERUS LT EXAM: XR SHOULDER LT COMPLETE 2+V CLINICAL HISTORY: Shoulder pain history of falling. TECHNIQUE: 2D digital imaging was performed. Three views. COMPARISON: CR,DX XR SHOULDER RIGHT (GENERIC) from 10/25/2023 MR MR UPPER JOINT RT WO from 01/18/2024 CR XR HUMERUS LT from 07/15/2024 FINDINGS: BONES: Mildly displaced left 7th rib fracture. No additional fractures are seen in the shoulder or h umerus. No bony destructive lesion is seen. JOINTS: No dislocation present. The glenoid humeral joint space is maintained. Mild degenerative ch anges. There are mild degenerative changes at the AC joint. Elbow is unremarkable. SOFT TISSUE: Intravenous catheter at level of elbow. IMPRESSION: Unremarkable radiographs of the left shoulder and humerus. Mild displaced left 7th rib fracture. DATA REPOSITORY: RADIATION DOSE DELIVERED:
--- NOTE | 2024-07-15 09:45 | DI.CT_ITS ---
Exam(s) CT HEAD CERV SPINE FACIAL WO EXAM: CT HEAD CERV SPINE FACIAL WO CLINICAL HISTORY: Left jaw pain. TECHNIQUE: Imaging Protocol: Axial computed tomography images with coronal and sagittal reformatted images were created and reviewed COMPARISON: CT CT HEAD CERVICAL SPINE WO from 11/24/2021 FINDINGS: CT Head: Ventricles and Extra axial spaces: Normal in size and morphology for the patient's age. Hemorrhage: None. Cerebral parenchyma: No evidence of acute hemorrhage or acute infarct. Pzhp-cy-wzzbyobj atrophy. Wh ite matter changes of small vessel disease. Midline shift: None. Brainstem/Cerebellum: Normal. Calvarium: Normal. Visualized Paranasal sinuses/Mastoids: Clear. Soft Tissues: Unremarkable. CT Face: Facial Bones: No fracture is noted in facial bones. Sinuses and Mastoids: Unremarkable. Globes, extraocular muscles, optic nerves and retrobulbar fat: Normal. Upper aerodigestive tract: Normal. Mandible and bilateral temporomandibular joints: Normal. Soft tissues: Normal. CT Cervical Spine: Bones: No acute fracture or subluxation. Mild degenerative change. Soft Tissues: Unremarkable. Lung Apices: Clear. IMPRESSION: 1. No acute intracranial process. 2. No acute fracture or subluxation in the cervical spine. 3. No acute facial fracture. RADIATION DOSE DELIVERED: 1,539.05mGy.cm Total DLP DATA REPOSITORY: All CT scans at this facility are submitted to the National Radiology Data Registry (NRDR) Dose Index Registry (DIR) with the [employer] ([employer]). RADIATION OPTIMIZATION: All CT scans at this facility use at least one of these dose optimization te chniques: automated exposure control; mA and/or kV adjustment per patient size (includes targeted exa ms where dose is matched to clinical indication); or iterative reconstruction.
--- NOTE | 2024-07-15 09:54 | DI.CT_ITS ---
Exam(s) CT CHEST/ABD/PEL WO CT THORACIC LUMBAR SPINE REC EXAM: CT CHEST/ABD/PEL WO CLINICAL HISTORY: History of falling. TECHNIQUE: Imaging Protocol: Axial computed tomography images with coronal and sagittal reformatted images were created and reviewed. Computer aided detection (CAD) was utilized. Images of the thoracic and lumbar spine were reconstructed from the chest abdomen pelvic CT in bone a nd soft tissue algorithm. CONTRAST MATERIAL: Intravenous: Noncontrast Oral: y/ no COMPARISON: CT CT CHEST/ABD/PEL WO from 12/12/[address] THORACIC LUMBAR SPINE REC from 07/15/2024 FINDINGS: CHEST: Pulmonary parenchyma: No consolidation. No dominant measurable mass. Tracheobronchial tree: No bronchiectasis. No mucous plugging.No bronchial wall thickening. Pleura: No effusion or pneumothorax. Mediastinum: Within normal limits. Pulmonary arteries: No visible emboli. Cardiovascular: The heart is mildly enlarged. No pericardial effusion. Thoracic aorta non-dilated. Bones: Right shoulder prosthesis. No lytic or blastic lesions. Old bilateral rib fractures. Questi on of right minimally displaced fracture of the posterior left 7th rib. No compression fractures. Soft tissues: Unremarkable. ABDOMEN and PELVIS: Liver: Normal density. No suspicious mass. Gallbladder and biliary tract: No evidence of stones or wall thickening. No biliary dilatation. Pancreas: Normal density, no abnormal calcifications or inflammatory process. Spleen: Normal. Kidneys: Normal size, contour and axis. No radiodense stones. No obstructive uropathy. No suspicious masses seen. Adrenal glands: No masses seen. Aorta: Abdominal portion non-dilated. Lymph nodes: Within normal limits. Soft tissues: Unremarkable. Bladder: Unremarkable. Bowel: No obstruction or bowel wall thickening. Peritoneal cavity: No ascites. No focal collection. No mesenteric inflammatory response. No free ai r. Bones: Bilateral hip prostheses. Degenerative changes in the lumbar spine. Reproductive organs: Unremarkable for age. IMPRESSION: Old bilateral rib fractures. Question of an acute rib fracture involving the posterior left 7th rib. No acute abnormality in the abdomen or pelvis. RADIATION DOSE DELIVERED: 494.15mGy.cm Total DLP DATA REPOSITORY: All CT scans at this facility are submitted to the National Radiology Data Registry (NRDR) Dose Index Registry (DIR) with the [employer] (ACR). RADIATION OPTIMIZATION: All CT scans at this facility use at least one of these dose optimization te chniques: automated exposure control; mA and/or kV adjustment per patient size (includes targeted exa ms where dose is matched to clinical indication); or iterative reconstruction.
--- NOTE | 2024-07-15 10:00 | RT.EKG_ITS ---
APPROVED REPORT Exam: Resting ECG Reason for Exam: Chest pain Patient Location: E HR:78 bpm ECG Measurements Heart Rate 78 AXIS AL 145 P 71 QRSd 83 QRS 50 QT 381 T 58 QTc 436 Conclusion Sinus rhythm...normal P axis, V-rate 60- 99 ST elevation, consider inferior injury...ST >0.08mV, II III aVF No Occlusion OR
[2024-07-15 10:23] LABS: Abs Immature Grans 0.02 10^3/uL (0.0-0.06); Absolute Basophil Count 0.03 10^3/uL (0.0-0.2); Absolute Eosinophil Count 0.05 10^3/uL (0.0-0.7); Absolute Lymphocyte Count 0.84 10^3/uL (1.2-3.4); Absolute Monocyte Count 0.35 10^3/uL (0.1-0.8); Absolute Neutrophil Count 3.29 10^3/uL (1.2-6.7); Basophils % 0.7 %; Eosinophils % 1.1 %; HGB 14.3 g/dL (11.2-15.7); Immature Grans % 0.4 %; Lymphocytes % 18.3 %; MCH 31.9 pg (27.0-33.0); MCHC 32.5 % (32.0-36.0); MCV 98 fL (80-95); MPV 9.1 fL (8.0-11.0); Monocytes % 7.6 %; Neutrophils % 71.9 %; Platelet Count 301 10^3/uL (130-400); RBC 4.48 10^6/uL (3.93-5.22); RDW 14.1 % (11.7-14.6); RDW-SD 51.3 fL; WBC 4.58 10^3/uL (4.4-10.8)
[2024-07-15] MEDS: Ondansetron 4 MG/2 ML VIAL IVP (10:25)
[2024-07-15] MEDS: ACETAMINOPHEN 500 MG/50 ML BAG 200 MG IVPB (10:25)
[2024-07-15 10:40] LABS: ALT 20 U/L (14-59); AST 21 U/L (15-37); Albumin 3.7 g/dL (3.4-5.0); Alkaline Phosphatase 98 U/L (46-116); Anion Gap 6.2 mmol/L (3-11); BUN 15 mg/dL (7-18); Bilirubin, Total 0.6 mg/dL (0.2-1.0); CO2 29.8 mmol/L (21.0-32.0); CREATININE 1.2 mg/dL (0.55-1.02); Calcium 9.6 mg/dL (8.5-10.1); Chloride 102 mmol/L (98-107); Creatine Kinase 47 U/L (26-192); Estimated GFR 46.62 (mL/min/1.73m2); Glucose 108 mg/dL (74-106); Potassium 4.3 mmol/L (3.5-5.1); Sodium 138 mmol/L (136-145); Total Protein 7.2 g/dL (6.4-8.2)
[2024-07-15 10:44] LABS: Troponin I 6 ng/L (<or=51)
[2024-07-15 12:04] LABS: Troponin I 7 ng/L (<or=51)
[2024-07-15 13:19] LABS: Bilirubin Negative (Negative); Blood Negative (Negative); Clarity Sl Cloudy (Clear); Glucose Negative (Negative); Ketones Negative (Negative); Leukocyte Esterase Trace (Negative); Nitrite Negative (Negative); Specific Gravity 1.015 (1.005-1.025); Urobilinogen 0.2 mg/dL (Up to 0.2); pH 6.5 (5-8)
[2024-07-15 13:26] LABS: Bacteria Many HPF (Negative); C & S Indicated? Yes; Casts Negative LPF (Negative); Crystals Negative HPF (Negative); Epithelial Cells Rare HPF (Negative); Mucus Negative (Negative); RBC 0-2 HPF (0-2); WBC 20-50 HPF (0-5)
[2024-07-15] MEDS: Nitrofurantoin Macrocrystal 50 MG CAP 100 MG PO (14:08)
--- NOTE | 2024-07-15 14:24 | PT.INIE ---
PT Notes Visit Reasons: Ribs/Abd Pain Physical Therapy Initial Evaluation Date: 07/15/2024 Referring Doctor: Dr. Martinez PT Orders: PT CONSULT: History of falls at home Precautions: Standard Patient Profile/Admitting Diagnosis: Patient is 79-year-old female presented to the ED with left rib pain and left sided facial pain. Pt able to ambulate with assistance into ED with noted [address] revealed acute left 7th rib fracture and multiple B old rib fractures. Right shoulder x-rays negative. PMHX: Acute UTI (Acute) Left rib fracture (Acute) Facial trauma (Acute) Status post reverse total arthroplasty of right shoulder (Acute) Tinea pedis (Acute) Onychomycosis (Acute) Memory impairment (Acute) Falls (Acute) Shoulder pain, right (Acute) Trigger ring finger (Acute) Urinary urgency (Acute) Chronic pain (Chronic) Sagittal band rupture at metacarpophalangeal joint (Acute) Trigger finger (Acute) Trigger finger, right ring finger (Acute) Glaucoma, left eye (Acute) Left cataract (Acute) Bilateral sensorineural hearing loss (Acute) Left wrist injury (Acute) Head injury, closed, with LOC of unknown duration (Acute) Fall (Acute) Skin lesions, generalized (Acute) Toe pain (Acute) Chronic cough (Acute) Fatigue (Acute) Head trauma (Acute) Lumbar radicular syndrome (Acute) Chronic insomnia (Acute) Anxiety (Acute) stableDOE (dyspnea on exertion) (Acute) Weight gain (Acute) GERD (gastroesophageal reflux disease) (Acute 09/25/12) with dysphagiaRadiculopathy (Acute) Xerodermia (Acute) Seborrheic keratosis (Acute) Cellulitis, face (Acute) Leg pain, left (Acute) Foot pain, left (Acute) Bipolar disorder (Acute) Periprosthetic fracture around internal prosthetic left hip joint, sequela (Acute) Closed hip fracture requiring operative repair (Acute) Status post left hip replacement (Acute) Hip pain, left (Chronic) Anorexia nervosa (Acute) 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 Duke is taking care of this.Vitamin D deficiency (Acute 04/08/14) Vitamin B 12 deficiency (Acute 02/03/14) Vaginal irritation (Acute 08/23/15) Right foot pain (Acute 09/05/13) h/o ORIF 3rd metatarsal fx persistent pain despite repeat surgery Malignant neoplasm of skin (Acute) basal cell ca on face Irritable bowel syndrome (Acute 10/06/14) stableUrinary, incontinence, stress female (Acute 09/26/12) Fatigue (Acute 10/06/14) Elevated fasting glucose (Acute 06/07/16) Accidental injury (Acute 02/02/16) Abnormal weight loss (Acute 12/03/12) h/o anorexia Abnormal vision (Acute 01/09/13) vision loss, unclear etiology Medical History Overactive bladder Optic neuropathy Notalgia paresthetica Hypercholesterolemia Health maintenance examination Dizziness History of IBS Tardive dyskinesia This was of 2 years duration and related to lexapro use. Has been stable. Returned only once following a decrease in topamaxSciatica (09/26/12) left-seen at [facility]; 2007-right Generalized osteoarthrosis right knee-surgery; right hip-THR right; DJD L1-2; Mri of L-S spine 01/02-neg. Essential hypertension (02/17/13) stableDepressive disorder (09/26/12) severe depression; suicide attempts x 3; multiple hospitalizations h/o anorexia PSYCHIATRIST 07/2017 DR. MONA PINEDA [address] [address] Alcohol abuse (06/07/16) has had no ETOH x 1 week, does not plan to drink prior to surgery Surgical History History of left hip replacement H/O discectomy foot surgery 10/09 right [facility] 08/10 RIGHT FOOT RECONSTRUCTION LUZ MARINA CARTER, Sabinelacement of total knee joint (~12/2000) rightTotal replacement of hip (~2006) rightFracture, Closed Treatment 11/04-COMPLEX FRACTURE TIBIAL PLATEAU LEFT KNEE 2009-COMPLEX FRACTURE RIGHT WRIST Appendectomy (~2004) Social History/Home Situation: Pt resides alone in home with 2 steps to enter. Pt reports she is independent in home with cane. She independent with meals prep and med management. Equipment Owned/DME: cane Subjective: Pt reports she wakes at 9 am and goes to bed at 6pm and takes her night meds at that time. She does not recall falling but notes she stayed in bed all day 3 days prior to coming to the ED because she did not feel well Objective: [] General Observation: Thin frail appearing female semireclined on stretcher with telemetry in place. Friend visiting Mental Status: Alert oriented to person place and year able to follow instructions agreeable to participate Pain: Left rib pain 2/10 ROM: [] Right Upper Extremity: Shoulder flexion 90 degrees abduction 90 degrees elbow and wrist within normal limits Left Upper Extremity: Within functional limits Right Lower Extremity: Within functional limits Left Lower Extremity: Within functional limits Strength: [] Right Upper Extremity: Shoulder able to move against gravity greater than 50% available range of motion elbow wrist 5/5 automobile tester strong Left Upper Extremity: Greater than 3/5 no resistance due to rib fracture Right Lower Extremity: Grossly 4/5 Left Lower Extremity: Hip flexion: 3+/5; hip abduction: 3 -/5; hip extension: 3/5; knee extension: 3/5; knee flexion: 3/5 ankle DF: 3/5 ; ankle PF: 3/5 Sensation: Intact Bed Mobility/Transfers: [] Supine to sit independent Sit to stand independent Stand to sit independent Bed to chair modified independent with cane Gait: SBA with cane level surfaces including turns and transitions to carpet 150 feet without loss of balance reciprocal pattern narrow base of support. Balance: [] Static Sitting: Normal Dynamic Sitting: Good Static Standing: Good Dynamic Standing: Good minus Special Tests: 4 STAGE BALANCE TEST: Feet together 10 seconds 1/2 Stance 6 seconds Tandem stance 4 seconds after external support to get into position Single leg stance left_3 seconds, right 3 seconds Mobility Limitations Standardized Measure [] [facility] AM-PAC 6 clicks Basic Mobility Inpatient Short Form: [] Raw Score: 21 CMS Score: 28.97% Informed Consent/Education: Patient instructed in purpose of PT consult. Assessment: Pt is 79 yo female presenting with impaired right shoulder ROM , pain in her right rib . She does not recall a fall. She demonstrates ability to ambulate with her cane with SBA without LOB including surface changes and turning. She is independent with bed mobility and transfers at this time MD noted polypharmacy which may have lead to her instability and presumptive fall with right rib fracture. MD contacted pt's PCP to modify her medication. Patient is assessed as a moderate complexity based on the following: History: 79-year-old female with impairment level findings, functional limitations, and past medical history as indicated above Examination: Demonstrable impairment in strength, balance, and mobility level with underlying impairments and functional limitations as documented above Presentation: Stable/evolving Decision Making: Moderate Goals: N/A. PT evaluation Plan of Care/Treatment Plan: N/A. PT evaluation DISCHARGE RECOMMENDATIONS: Home with no services TREATMENT CODE/TIME: 30174/1:23 PM?1:50 PM Thank you for the opportunity to participate in the care of this patient. Mayra Lozada, PT [facility]
== END 2024-07-15 14:19 | disposition home or self-care (01) ==
PROVIDERS: Emergency Provider Emergency Medicine; PCP Family Medicine
DX: R42 Dizziness and giddiness (principal); S22.32XA Fracture of one rib, left side, initial encounter for closed fracture; S70.12XA Contusion of left thigh, initial encounter; S00.83XA Contusion of other part of head, initial encounter; I10 Essential (primary) hypertension; E78.5 Hyperlipidemia, unspecified; N39.0 Urinary tract infection, site not specified; Z96.611 Presence of right artificial shoulder joint; Z96.643 Presence of artificial hip joint, bilateral; X58.XXXA Exposure to other specified factors, initial encounter
CPT/HCPCS: 71250; 80053; 82550; 86850; 86900; 86901; 87077; 93005; 96374; 96375; 97162; 99285; 70450; 70486; 72125; 73030; 73060; 74176; 81003; 81015; 84484; 85025; 87086; 87186; 93010; J0131; J2405

== ENCOUNTER 2024-07-25 10:34 | Emergency (ER) | payer MEDICARE, SELFPAY ==
[2024-07-25] VITALS (56 sets, daily range): BP systolic 138–193; BP diastolic 76–120; PULSE 69–104; RESP 11–23; TEMP 36.9; O2SAT 94–99
[2024-07-25 11:09] LABS: Abs Immature Grans 0.01 10^3/uL (0.0-0.06); Absolute Basophil Count 0.06 10^3/uL (0.0-0.2); Absolute Eosinophil Count 0.14 10^3/uL (0.0-0.7); Absolute Lymphocyte Count 0.75 10^3/uL (1.2-3.4); Absolute Neutrophil Count 7.29 10^3/uL (1.2-6.7); Basophils % 0.7 %; Eosinophils % 1.6 %; HCT 46.3 % (36.0-46.0); HGB 15.3 g/dL (11.2-15.7); Immature Grans % 0.1 %; Lymphocytes % 8.6 %; MCH 31.7 pg (27.0-33.0); MCV 96 fL (80-95); MPV 8.9 fL (8.0-11.0); Monocytes % 5.7 %; Neutrophils % 83.3 %; Platelet Count 315 10^3/uL (130-400); RBC 4.82 10^6/uL (3.93-5.22); RDW 13.5 % (11.7-14.6); RDW-SD 48.4 fL; WBC 8.75 10^3/uL (4.4-10.8)
[2024-07-25] MEDS: LORazepam 2 MG/ML VIAL 1 MG IVP (11:10)
[2024-07-25] MEDS: diazePAM 5 MG TAB PO (11:10)
[2024-07-25 11:29] LABS: ALT 23 U/L (14-59); AST 21 U/L (15-37); Albumin 4.3 g/dL (3.4-5.0); Alkaline Phosphatase 115 U/L (46-116); BUN 11 mg/dL (7-18); Bilirubin, Total 0.9 mg/dL (0.2-1.0); CREATININE 0.8 mg/dL (0.55-1.02); Calcium 9.3 mg/dL (8.5-10.1); Chloride 101 mmol/L (98-107); Estimated GFR 75.84 (mL/min/1.73m2); Glucose 120 mg/dL (74-106); Potassium 4.4 mmol/L (3.5-5.1); Sodium 138 mmol/L (136-145); Total Protein 8.1 g/dL (6.4-8.2)
--- NOTE | 2024-07-25 12:51 | ED.GENADUL_ITS ---
Discharge Plan Disposition Patient Disposition: Home Discharge Details Clinical Impression: Benzodiazepine withdrawal Primary Care Provider: Crow Darnell ED Provider: Robby Arteaga Home Meds and New Rx's Prescriptions: No Action melatonin 3 mg capsule 3 mg PO HS PRN travoprost [Travatan Z] 0.004 % drops 1 drp OU QHS Qty: 1 4RF Rx Instructions: Issue one bottle. Restasis MultiDose 0.05 % drops 1 drp OP Q12H Qty: 5.5 2RF pantoprazole 40 mg tablet,delayed release (DR/EC) 40 mg PO BID Qty: 180 3RF cyanocobalamin (vitamin B-12) 1,000 mcg/mL solution 1,000 mcg IM 2x/mo Qty: 6 11RF Rx Instructions: 1 ML twice a month clonazepam 0.25 mg tablet,disintegrating 0.75 mg PO .AM Qty: 90 0RF loratadine 10 mg tablet 10 mg PO DAILY PRN (Reason: allergy symptoms) Qty: 30 2RF terbinafine HCl 250 mg tablet 250 mg PO DAILY Qty: 7 3RF Rx Instructions: take daily for one week every 3 months terbinafine HCl 250 mg tablet 250 mg PO DAILY Qty: 7 3RF Rx Instructions: take daily for one week for each of next 4 months, then start maintenance therapy famotidine 20 mg tablet 20 mg PO DAILY Qty: 90 3RF cholecalciferol (vitamin D3) 3,000 UNIT tablet 6,000 unit PO DAILY Qty: 100 Vitamin C 1,000 MG tablet extended release 1,000 mg PO DAILY magnesium oxide 400 mg magnesium capsule 500 mg PO DAILY (DME) BD Eclipse Luer-Sterling 3 mL 25 x 5/8 syringe 1 syrg IM TWICE MONTHLY Qty: 6 4RF Rx Instructions: 3 ML SYRINGE WITH 25G X 1 NEEDLE FOR VIT B12 INJECTIONS topiramate 50 mg tablet See Rx Instructions PO BID Qty: 180 4RF Dose Instruction: 100 mgs in morning and 50 mgs evening PO BID; 100 mg (2 tabs) QAM, 50 mg (1 tab) QPM PO BID; Rx Instructions: 100 mgs in morning and 50 mgs evening PO BID; 100 mg (2 tabs) QAM, 50 mg (1 tab) QPM PO BID; mirtazapine 30 mg tablet See Rx Instructions .ROUTE .COMPLEX Qty: 60 5RF Dose Instruction: TAKE 1 TABLET BY MOUTH AT BEDTIME Rx Instructions: TAKE 1 TABLET BY MOUTH AT BEDTIME gabapentin 600 mg tablet 300 - 900 mg PO BID Qty: 180 1RF Rx Instructions: 300 mg in AM; 900 mg PM (per Psych) duloxetine 60 mg capsule,delayed release(DR/EC) 60 mg PO DAILY Qty: 90 3RF clonazepam 1 mg tablet 1 mg PO QHS MDD 3 tabs Qty: 30 0RF Discharge Instructions Additional Instructions: Please do not miss any doses of the clonazepam. Please continue the nitrofurantoin until it is finished. Make sure to take this with a probiotic or yogurt to help with the diarrhea. Please talk with your PCP regarding the decreased dosing of your clonazepam. Decreasing this medication slowly is very important. Follow-up if there is any other concerns. HPI General Date/Time Provider Initiated Documentation: 07/25/24 10:46 . Limitations to Documentation: no limitations . Information obtained by: patient and family . HPI Narrative: 79-year-old female with past medical history of anxiety, recent urinary tract infection presents for evaluation of shaking, sweating and diarrhea. She reports that diarrhea started last night and she has been nauseated. She has been having her clonazepam dosing decreased by her PCP. She states that she did not take any today because she was afraid that it was interacting with her antibiotic. Related Data Home Medications ?Medication ?Instructions ?Recorded ?Confirmed cholecalciferol (vitamin D3) 75 6,000 unit PO DAILY #100 tab-caps 04/09/14 07/25/24 mcg (3,000 unit) tablet ascorbic acid (vitamin C) 1,000 mg 1,000 mg PO DAILY 08/02/16 07/25/24 tablet,extended release (Vitamin C ER) magnesium oxide 500 mg PO DAILY 09/22/19 07/25/24 melatonin 3 mg capsule 3 mg PO HS PRN 05/07/20 07/25/24 cyclosporine 0.05 % eye drops 1 drp ophthalmic (eye) Q12H #5.5 mL 12/14/21 07/25/24 (Restasis MultiDose) travoprost 0.004 % eye drops 1 drp OU QHS #1 oz 12/14/21 07/25/24 (Travatan Z) loratadine 10 mg tablet 10 mg PO DAILY PRN allergy 12/27/22 07/25/24 symptoms #30 tabs syringe with needle 3 mL 25 x 5/8 #6 SYRGS 01/22/23 07/17/24 (BD Eclipse Luer-Sterling) cyanocobalamin (vitamin B-12) 1,000 mcg IM 2x/mo #6 vials 07/31/23 07/25/24 1,000 mcg/mL injection solution pantoprazole 40 mg tablet,delayed 40 mg PO BID #180 tabs 07/31/23 07/25/24 release topiramate 50 mg tablet See Rx Instructions PO BID #180 08/20/23 07/25/24 tabs mirtazapine 30 mg tablet See Rx Instructions .Route 09/19/23 07/25/24 .COMPLEX #60 tabs gabapentin 600 mg tablet 300 - 900 mg (0.5 - 1.5 x 600 mg) 03/28/24 07/25/24 PO BID #180 tabs duloxetine 60 mg capsule,delayed 60 mg PO DAILY #90 caps 04/28/24 07/25/24 release famotidine 20 mg tablet 20 mg PO DAILY #90 tabs 05/13/24 07/25/24 terbinafine HCl 250 mg tablet 250 mg PO DAILY #7 tabs 05/13/24 07/25/24 terbinafine HCl 250 mg tablet 250 mg PO DAILY #7 tabs 05/13/24 07/25/24 clonazepam 0.25 mg disintegrating 0.75 mg (3 x 0.25 mg) PO .AM #90 07/17/24 07/25/24 tablet tabs clonazepam 1 mg tablet 1 mg PO QHS #30 tabs 07/23/24 07/25/24 Previous Rx's ?Medication ?Instructions ?Recorded cyclosporine 0.05 % eye drops 1 drp ophthalmic (eye) Q12H #5.5 mL 12/14/21 (Restasis MultiDose) travoprost 0.004 % eye drops 1 drp OU QHS #1 oz 12/14/21 (Travatan Z) loratadine 10 mg tablet 10 mg PO DAILY PRN allergy 12/27/22 symptoms #30 tabs syringe with needle 3 mL 25 x 5/8 #6 SYRGS 01/22/23 (BD Eclipse Luer-Sterling) cyanocobalamin (vitamin B-12) 1,000 mcg IM 2x/mo #6 vials 07/31/23 1,000 mcg/mL injection solution pantoprazole 40 mg tablet,delayed 40 mg PO BID #180 tabs 07/31/23 release topiramate 50 mg tablet See Rx Instructions PO BID #180 08/20/23 tabs mirtazapine 30 mg tablet See Rx Instructions .Route 09/19/23 .COMPLEX #60 tabs gabapentin 600 mg tablet 300 - 900 mg (0.5 - 1.5 x 600 mg) 03/28/24 PO BID #180 tabs duloxetine 60 mg capsule,delayed 60 mg PO DAILY #90 caps 04/28/24 release famotidine 20 mg tablet 20 mg PO DAILY #90 tabs 05/13/24 terbinafine HCl 250 mg tablet 250 mg PO DAILY #7 tabs 05/13/24 terbinafine HCl 250 mg tablet 250 mg PO DAILY #7 tabs 05/13/24 clonazepam 0.25 mg disintegrating 0.75 mg (3 x 0.25 mg) PO .AM #90 07/17/24 tablet tabs clonazepam 1 mg tablet 1 mg PO QHS #30 tabs 07/23/24 Allergies Allergy/AdvReac Type Severity Reaction Status Date / Time ceftriaxone (From Rocephin) Allergy Severe RASH, Verified 07/25/24 10:44 REDNESS, SWELLING, cephalexin (From Keflex) Allergy Severe RASH, Verified 07/25/24 10:44 REDNESS, SWELLING, NAUSEA Iodinated Contrast Media Allergy Severe ANAPHYLAXIS Verified 07/25/24 10:44 (Iodinated Contrast- Oral and IV Dye) Penicillins Allergy Severe RASH, Verified 07/25/24 10:44 REDNESS, SWELLING wool Allergy Intermediate Itching Verified 07/25/24 10:44 amoxicillin trihydrate (From Allergy Mild SKIN RASH Verified 07/25/24 10:44 Augmentin) cimetidine Allergy Unknown Unknown Verified 07/25/24 10:44 Sulfa (Sulfonamide Allergy Unknown UNSURE Verified 07/25/24 10:44 Antibiotics) clindamycin Allergy REDNESS, Verified 07/25/24 10:44 RASH, SWELLING cyclobenzaprine HCl (From AdvReac Severe PVC'S Verified 07/25/24 10:44 Flexeril) bacitracin (From Neosporin AdvReac Intermediate Skin Rash Verified 07/25/24 10:44 ([id number])) escitalopram oxalate (From AdvReac Intermediate Parkinsonian Verified 07/25/24 10:44 Lexapro) symtoms neomycin (From Neosporin AdvReac Intermediate Skin Rash Verified 07/25/24 10:44 ([id number])) polymyxin B (From Neosporin AdvReac Intermediate Skin Rash Verified 07/25/24 10:44 ([id number])) carbidopa (From Sinemet) AdvReac Mild LOOSES Verified 07/25/24 10:44 CONTROL levodopa (From Sinemet) AdvReac Mild LOOSES Verified 07/25/24 10:44 CONTROL lisinopril AdvReac Mild COUGH Verified 07/25/24 10:44 fentanyl AdvReac Unknown Unknown Verified 07/25/24 10:44 [employer] laundry Allergy Intermediate Itching Uncoded 07/25/24 10:44 detergent Sheer strip band-aid Allergy Intermediate Rash Uncoded 07/25/24 10:44 General Stated Complaint: Allergic SARAH: 2 Exam Narrative Exam Narrative: Review of Systems: All systems reviewed & are unremarkable except as noted in HPI and below Well-developed NCAT diaphoretic tachycardic Unlabored respiratory effort, CTAB Nondistended abdomen , soft nt tremulous Course Vital Signs Vital signs: Vital Signs Temperature 36.9 C 07/25/24 10:35 Pulse 103 H 07/25/24 10:35 Respiratory Rate 18 07/25/24 10:35 Blood Pressure 138/120 H 07/25/24 10:35 Pulse Oximetry 96 07/25/24 10:35 Temperature 36.9 C 07/25/24 10:35 Temperature Source Oral 07/25/24 10:35 Pulse 76 07/25/24 11:58 Respiratory Rate 19 07/25/24 12:17 Blood Pressure 193/76 H 07/25/24 11:46 Blood Pressure Position Sitting 07/25/24 10:35 Pulse Oximetry 97 07/25/24 11:58 Oxygen Delivery Method Room Air 07/25/24 10:35 Oxygen Flow Rate 0 07/25/24 10:35 Pain Level 7 07/25/24 10:35 Lab/Test Results Lab/Test Results: Laboratory Tests Range/Units 07/25/24 11:04 WBC (4.4-10.8) 10^3/uL 8.75 RBC (3.93-5.22) 10^6/uL 4.82 Hgb (11.2-15.7) g/dL 15.3 Hct (36.0-46.0) % 46.3 H MCV (80-95) fL 96 H MCH (27.0-33.0) pg 31.7 MCHC (32.0-36.0) % 33.0 RDW (11.7-14.6) % 13.5 Plt Count (130-400) 10^3/uL 315 MPV (8.0-11.0) fL 8.9 Immature Gran % % 0.1 Neutrophils % % 83.3 Lymphocytes % % 8.6 Monocytes % % 5.7 Eosinophils % % 1.6 Basophils % % 0.7 Nucleated RBC % (0.0-0.3) % 0.0 Absolute Neutrophils (1.2-6.7) 10^3/uL 7.29 H Absolute Lymphocytes (1.2-3.4) 10^3/uL 0.75 L Absolute Monocytes (0.1-0.8) 10^3/uL 0.50 Absolute Eosinophils (0.0-0.7) 10^3/uL 0.14 Absolute Basophils (0.0-0.2) 10^3/uL 0.06 Sodium (136-145) mmol/L 138 Potassium (3.5-5.1) mmol/L 4.4 Chloride (98-107) mmol/L 101 Carbon Dioxide (21.0-32.0) mmol/L 25.0 Anion Gap (3-11) mmol/L 12.0 H BUN (7-18) mg/dL 11 Creatinine (0.55-1.02) mg/dL 0.8 Est GFR (CKD-EPI 2020) (mL/min/1.73m2) 75.84 Glucose (74-106) mg/dL 120 H Calcium (8.5-10.1) mg/dL 9.3 Total Bilirubin (0.2-1.0) mg/dL 0.9 AST (15-37) U/L 21 ALT (14-59) U/L 23 Alkaline Phosphatase (46-116) U/L 115 Total Protein (6.4-8.2) g/dL 8.1 Albumin (3.4-5.0) g/dL 4.3 Medical Decision Making Emergent evaluation of tremulousness and anxiety. The patient reports that she did not take her clonazepam and she is displaying symptoms concerning for acute benzo withdrawal. Sounds like her dose has been decreasing over the last few days and she has been having some diarrhea and nausea with poor oral intake. She was given IV and oral benzodiazepine with almost immediate improvement and resolution of her symptoms. She was monitored for any dysrhythmias. She has no focal neurologic deficit. Blood work was unremarkable for any acute derangement. Patient ate food and drink without difficulty. And at this time the patient is stable for discharge home. Advised that she should not miss any doses of her clonazepam and that she should discuss her taper with her PCP to ensure that this continues safely. Any additional symptoms or concerns should be readdressed with PCP or return to the emergency department. Quality:SDOH Health Related Social Needs: No Data to Display PFSH All Active Problems (Updated 07/25/24 @ 12:54 by Robby Arteaga MD) Benzodiazepine withdrawal (Acute) UTI (urinary tract infection) (Acute) Acute UTI (Acute) Left rib fracture (Acute) Facial trauma (Acute) Status post reverse total arthroplasty of right shoulder (Acute) Tinea pedis (Acute) Onychomycosis (Acute) Memory impairment (Acute) Falls (Acute) Shoulder pain, right (Acute) Trigger ring finger (Acute) Urinary urgency (Acute) Chronic pain (Chronic) Sagittal band rupture at metacarpophalangeal joint (Acute) Trigger finger (Acute) Trigger finger, right ring finger (Acute) Glaucoma, left eye (Acute) Left cataract (Acute) Bilateral sensorineural hearing loss (Acute) Left wrist injury (Acute) Head injury, closed, with LOC of unknown duration (Acute) Fall (Acute) Skin lesions, generalized (Acute) Toe pain (Acute) Chronic cough (Acute) Fatigue (Acute) Head trauma (Acute) Lumbar radicular syndrome (Acute) Chronic insomnia (Acute) Anxiety (Acute) stable WOODS (dyspnea on exertion) (Acute) Weight gain (Acute) GERD (gastroesophageal reflux disease) (Acute 09/25/12) with dysphagia Radiculopathy (Acute) Xerodermia (Acute) Seborrheic keratosis (Acute) Cellulitis, face (Acute) Leg pain, left (Acute) Foot pain, left (Acute) Bipolar disorder (Acute) Periprosthetic fracture around internal prosthetic left hip joint, sequela (Acute) Closed hip fracture requiring operative repair (Acute) Status post left hip replacement (Acute) Hip pain, left (Chronic) Anorexia nervosa (Acute) 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 Nondisplaced fracture of femoral condyle (Acute) Dr. Duke is taking care of this. Vitamin D deficiency (Acute 04/08/14) Vitamin B 12 deficiency (Acute 02/03/14) Vaginal irritation (Acute 08/23/15) Right foot pain (Acute 09/05/13) h/o ORIF 3rd metatarsal fx persistent pain despite repeat surgery Malignant neoplasm of skin (Acute) basal cell ca on face Irritable bowel syndrome (Acute 10/06/14) stable Urinary, incontinence, stress female (Acute 09/26/12) Fatigue (Acute 10/06/14) Elevated fasting glucose (Acute 06/07/16) Accidental injury (Acute 02/02/16) Abnormal weight loss (Acute 12/03/12) h/o anorexia Abnormal vision (Acute 01/09/13) vision loss, unclear etiology Medical History Overactive bladder Optic neuropathy Notalgia paresthetica Hypercholesterolemia Health maintenance examination Dizziness History of IBS Tardive dyskinesia This was of 2 years duration and related to lexapro use. Has been stable. Returned only once following a decrease in topamax Sciatica (09/26/12) left-seen at [facility]; 2007-right Generalized osteoarthrosis right knee-surgery; right hip-THR right; DJD L1-2; Mri of L-S spine 01/02- neg. Essential hypertension (02/17/13) stable Depressive disorder (09/26/12) severe depression; suicide attempts x 3; multiple hospitalizations h/o anorexia PSYCHIATRIST 07/2017 DR. MONA PINEDA [address] [place] [address] Alcohol abuse (06/07/16) has had no ETOH x 1 week, does not plan to drink prior to surgery Surgical History History of left hip replacement H/O discectomy foot surgery 10/09 right [facility] 08/10 RIGHT FOOT RECONSTRUCTION LUZ MARINA CARTER [place] Replacement of total knee joint (~12/2000) right Total replacement of hip (~2006) right Fracture, Closed Treatment 11/04-COMPLEX FRACTURE TIBIAL PLATEAU LEFT KNEE 2008-COMPLEX FRACTURE RIGHT WRIST Appendectomy (~2004) Family History Mother Myasthenia gravis Macular degeneration Father Personal history of malignant neoplasm Prostate, skin Stroke Sister Personal history of malignant neoplasm Breast lumps Brother Personal history of malignant neoplasm Prostate Grandfather Personal history of malignant neoplasm Throat Grandfather Essential hypertension Personal history of malignant neoplasm Hyperlipidemia Grandmother Personal history of malignant neoplasm Throat Grandmother Essential hypertension Heart disease Stroke Social History Smoking/Tobacco Use Status: Never Smoking risk assessment performed?: Yes Alcohol Intake: current Alcohol Intake frequency: a few times a week Alcohol type: wine Drug use: Never Substance use type: does not use Household members: none Housing: house Current gender identity: female What type of physical activity do you participate in: walking, resistance training and running Do you feel safe at home: Yes Do you feel safe in your relationship?: Yes
== END 2024-07-25 13:19 | disposition home or self-care (01) ==
PROVIDERS: Emergency Provider Emergency Medicine; PCP Family Medicine
DX: F15.93 Other stimulant use, unspecified with withdrawal (principal)
CPT/HCPCS: 99284 ×2; 36415; 96374; 80053; 85025; J2060

== ENCOUNTER → 2024-10-27 13:29 | Outpatient (BNVA) | payer MEDICARE, SELFPAY | PROVIDERS: PCP Family Medicine; Referring Provider Family Medicine; Visit Provider Student in an Organized Health Care Education/Training Program | DX: M65.341 Trigger finger, right ring finger (principal); M66.241 Spontaneous rupture of extensor tendons, right hand | CPT/HCPCS: 99214 ==

== ENCOUNTER 2024-11-12 12:27 | Day surgery (SDC) | payer MEDICARE, SELFPAY ==
--- NOTE | 2024-11-12 09:19 | PDOC.DSDIS_ITS ---
Date of service: 11/12/24 Discharge Plan Disposition Patient Disposition: Home Condition: Good Discharge Details Reason For Visit: sagital band repair/trigger release RRF Attending Provider: Sam Duke Primary Care Provider: Crow Darnell Home Meds and New Rx's Prescriptions: New hydrocodone-acetaminophen 5-325 mg tablet 1 tab PO Q6H PRN (Reason: pain) Qty: 6 0RF acetaminophen 500 mg tablet 500 mg PO TID Qty: 90 0RF ibuprofen 600 mg tablet 600 mg PO TID PRN (Reason: pain) Qty: 90 0RF Continued melatonin 3 mg capsule 3 mg PO HS PRN pantoprazole 40 mg tablet,delayed release (DR/EC) 40 mg PO BID Qty: 180 3RF cyanocobalamin (vitamin B-12) 1,000 mcg/mL solution 1,000 mcg IM 2x/mo Qty: 6 11RF Rx Instructions: 1 ML twice a month terbinafine HCl 250 mg tablet 250 mg PO DAILY Qty: 7 3RF Rx Instructions: take daily for one week every 3 months famotidine 20 mg tablet 20 mg PO DAILY Qty: 90 3RF cholecalciferol (vitamin D3) 3,000 UNIT tablet 6,000 unit PO DAILY Qty: 100 Vitamin C 1,000 MG tablet extended release 1,000 mg PO DAILY (DME) BD Eclipse Luer-Sterling 3 mL 25 x 5/8 syringe 1 syrg IM TWICE MONTHLY Qty: 6 4RF Rx Instructions: 3 ML SYRINGE WITH 25G X 1 NEEDLE FOR VIT B12 INJECTIONS mirtazapine 30 mg tablet See Rx Instructions .ROUTE .COMPLEX Qty: 60 5RF Dose Instruction: TAKE 1 TABLET BY MOUTH AT BEDTIME Rx Instructions: TAKE 1 TABLET BY MOUTH AT BEDTIME duloxetine 60 mg capsule,delayed release(DR/EC) 60 mg PO DAILY Qty: 90 3RF topiramate 50 mg tablet See Rx Instructions PO BID Qty: 180 4RF Dose Instruction: 100 mgs in morning and 50 mgs evening PO BID; 100 mg (2 tabs) QAM, 50 mg (1 tab) QPM PO BID; Rx Instructions: 100 mgs in morning and 50 mgs evening PO BID; 100 mg (2 tabs) QAM, 50 mg (1 tab) QPM PO BID; clonazepam 0.25 mg tablet,disintegrating 0.5 - 0.75 mg PO BID Qty: 150 0RF gabapentin 600 mg tablet 300 - 900 mg PO BID Qty: 180 1RF Rx Instructions: 300 mg in AM; 900 mg PM (per Psych) Discharge Instructions Additional Instructions: Sagital Band Repair Discharge Instructions Activity: You should keep the hand elevated as much as possible for the first few days. You may use the other fingers as tolerated but avoid trying to do too much too soon. You may perform light activities with the splint in place. Dressing/Cast: Your splint should stay in place at all times. Do NOT get it wet. You may loosen the KATARINA wrap if you feel it is too tight and then rewrap more loosely. Medications: - You should take Tylenol and Ibuprofen for baseline pain control. - You have Hydrocodone for breakthrough pain. - You may apply ice over the finger. Follow-up: 7-10 days Referrals: Sam Duke MD [ [facility] STAFF PHYSICIAN, Orthopaedic Surgical] Remove Dressings/Wound Care:: Do Not Remove Shower/Bathe:: Cover Diet:: As Tolerated Discharge Orders Discharge Orders: Discharge Order (Routine); Ordered 11/12/24 Ordered By: Regulo Hickey DS: Diagnosis Discharge Diagnosis (1) Nontraumatic rupture of sagittal band of extensor tendon of right upper extremity: Status: Acute (2) Trigger ring finger: Status: Acute
[2024-11-12 12:36] VITALS: BP 163/89; PULSE 95; RESP 16; TEMP 36.2; O2SAT 97
[2024-11-12] MEDS: Sodium Bicarbonate 50 MEQ/50 ML VIAL (13:56)
[2024-11-12] MEDS: Lidocaine 1% Multi-Dose W/EPI 1/100,000 50 ML VIAL (13:56)
[2024-11-12 14:23] VITALS: BP 156/78; PULSE 82; RESP 16; TEMP 36.4; O2SAT 100
--- NOTE | 2024-11-12 14:32 | W.PM.OP ---
Operative Note Operative Note PRE-OP DIAGNOSIS: Right Ring Finger Trigger Finger Right Ring Finger Sagittal Band Rupture Right Middle Finger Sagittal Band Incompetence with Tendon Subluxation PROCEDURE: A1 Nestor Release - Right Ring Finger Sagittal Band Repair - Right Ring and Middle Fingers SURGEON: Sam Duke ANESTHESIA TYPE: Local By Surgeon Refer to Anesthesia Record ESTIMATED BLOOD LOSS: 0 TOURNIQUET TIME: 0 COMPLICATIONS: None Patient was transported to: same day Patient's condition: stable Indications: Judi is a 79-year-old female who has been having locking and triggering of the ring finger primarily. She has had worsening dysfunction of the middle finger recently as well with the extensor tendon subluxing to the ulnar side of the third MCP joint. Given the persistence of the symptoms and their dysfunction may cause I offered trigger finger release as well as sagittal band repair. I discussed the tentacle details of the surgery. I reviewed the risk to include bleeding, infection, pain, stiffness, instability in the contralateral direction, recurrence, damage to nerves and vessels, damage to muscles and tendons. Despite these risks, she elects to proceed. Findings: There was a tight A1 nestor of the ring finger. This was released. The radial sagittal band of both the middle finger and the ring finger was deficient. An imbrication of this tissue was performed and active range of motion was tested and showed no further subluxation. Procedure Description: Althea was here in the preoperative holding area. Her identity was confirmed correct side was identified and marked. The sites of surgery were also marked. Consent was reviewed with patient and signed. She was and taken back to the operating room. She is placed in the supine position with the right hand on a hand table. The right arm was prepped ChloraPrep and draped in standard fashion. A timeout was performed for safe surgery. The 3 individual sites, dorsal MCP joint of the ring finger middle finger as well as the A1 nestor of the ring finger, which were marked on the hand were confirmed with patient once again and then they were anesthetized utilizing 1% lidocaine with epinephrine, buffered with sodium bicarbonate. A timeout was then performed for safe surgery. Starting with the A1 nestor of the ring finger, a longitudinal incision was made overlying the A1 nestor. Skin and subcutaneous tissue was dissected with a tenotomy scissor. The A1 nestor was easily identifiable and adjacent structures were retracted with a ragnel. A tenotomy scissor was utilized to release the A1 nestor. Once this was completed a curved hemostat was utilized to remove the tendons out of the wound and inspected which did not show any significant sign of tendon damage. There was no notable area of impingement upon the tendons. The wound was then irrigated. The wound was closed with a 4-0 nylon. Attention was turned to the sagittal band repair of the ring finger. A curvilinear incision was made over the radial border of the ring finger MCP joint. This was taken down sharply to the skin. Dissection of the soft tissues was done so to identify the capsule and extensor tendon. There was intact sagittal band ulnarly but there was no discernible sagittal band radially. The ulnar structures were dissected which immediately centralize the tendon. The patient was able to take the finger through range of motion and the tendon was no longer subluxing but is still seem to move ulnarly. Therefore imbricated soft tissues over the radial side incorporating some remnant sagittal band and soft tissues. This was secured with a 3-0 FiberWire. Range of motion is tested by the patient and showed no subluxation of the extensor tendon and a centralized location of the tendon. This area was then irrigated. The skin was closed with 4-0 nylon. Attention was turned to the central band. The middle finger. In a similar fashion, curvilinear incision was made over the radial border of the middle finger MCP joint. This was taken down sharply through the skin. Soft tissues were dissected off of the capsule of the middle finger MCP joint and the extensor tendon and capsule was identified. Sagittal band ulnarly was intact and this was transected. This immediately allowing the extensor tendon to resume a centralized location. I then imbricated soft tissues radially and secured these with a #3-0 FiberWire. She took the hand to range of motion and then did not show any signs of subluxation. Wounds thoroughly irrigated. The skin was closed with 4-0 nylon. The wounds were then dressed with Xeroform, 4 x 4 and Webril. A short arm splint was applied. I inserted some roll gauze underneath the middle and ring finger to assume a slightly extended position at the MCP joint to protect the sagittal band repair. She is to keep the splint on at all times until removed by hand therapy and the placement of the yoke splint is performed for both the ring and middle fingers. Date of Procedure: 11/12/24
== END 2024-11-12 15:15 | disposition home or self-care (01) ==
LOC: SUR 12:28
PROVIDERS: PCP Family Medicine; Visit Provider Student in an Organized Health Care Education/Training Program
PROC: (CPT 26055; principal; 2024-11-12 14:45)
DX: M65.341 Trigger finger, right ring finger (principal); S63.654A Sprain of metacarpophalangeal joint of right ring finger, initial encounter; X58.XXXA Exposure to other specified factors, initial encounter
CPT/HCPCS: 26437 ×2; 26055; 27130; J2004

== ENCOUNTER → 2024-11-20 13:30 | Outpatient (BNVA) | payer MEDICARE, SELFPAY | PROVIDERS: PCP Family Medicine; Referring Provider Family Medicine; Visit Provider Physician Assistant | DX: Z47.89 Encounter for other orthopedic aftercare (principal); M66.241 Spontaneous rupture of extensor tendons, right hand; M65.341 Trigger finger, right ring finger | CPT/HCPCS: 99024 ==

== ENCOUNTER → 2024-12-25 13:28 | Outpatient (BNVA) | payer MEDICARE, SELFPAY | PROVIDERS: PCP Family Medicine; Referring Provider Family Medicine; Visit Provider Physician Assistant | DX: Z47.89 Encounter for other orthopedic aftercare (principal); M65.341 Trigger finger, right ring finger; M66.241 Spontaneous rupture of extensor tendons, right hand | CPT/HCPCS: 99024 ==